=== PATIENT | male | born 1955 | race Caucasian/White ===

== ENCOUNTER 2017-03-20 10:26 | Emergency (ER) | payer OTHER ==
[~2017-03-20] VITALS: Ht 170.2 cm; Wt 84.5 kg
[2017-03-20 10:26] VITALS: BP 141/78
[2017-03-20] MEDS ORDERED: PIOG45TA4 PO (10:51)
[2017-03-20] MEDS ORDERED: NORC1TAB4 PO (10:51)
[2017-03-20] MEDS ORDERED: HYDR12.55 PO (10:51)
[2017-03-20] MEDS ORDERED: SIMV40TA2 PO (10:51)
[2017-03-20] MEDS ORDERED: GABA-283 PO (10:51)
[2017-03-20] MEDS ORDERED: INSUH10VL SC (10:51)
[2017-03-20] MEDS ORDERED: STOO100C PO (10:51)
[2017-03-20] MEDS ORDERED: LOSA100T36 PO (10:51)
[2017-03-20] MEDS ORDERED: INSULANT SC (10:51)
[2017-03-20] MEDS ORDERED: METF10004 PO (10:51)
[2017-03-20] MEDS ORDERED: ASPI81TA24 PO (10:51)
[2017-03-20] MEDS ORDERED: OMEP40CA2 PO (10:51)
[2017-03-20] MEDS ORDERED: TRAM50TA2 PO (10:51)
[2017-03-20] MEDS ORDERED: VICT18IN SC (10:51)
[2017-03-20] MEDS ORDERED: ATEN50TA2 PO (10:51)
--- NOTE | 2017-03-20 11:33 | REP ---
Right hip two views : There is no fracture or dislocation. Mineralization and joint spaces are normal. There are no calcifications or foreign bodies. Impression: Negative right hip . Signed by Wiley Grijalva MD 03/20/2017 11:24 A
[2017-03-20] MEDS ORDERED: MOBI4TAB PO (13:16)
== END 2017-03-20 13:37 | disposition home or self-care (01) ==
LOC: M ED 10:26
DX: M76.892 Other specified enthesopathies of left lower limb, excluding foot (principal); M70.72 Other bursitis of hip, left hip; Z87.891 Personal history of nicotine dependence; X58.XXXA Exposure to other specified factors, initial encounter; Y92.89 Other specified places as the place of occurrence of the external cause; Y93.89 Activity, other specified; Y99.9 Unspecified external cause status

== ENCOUNTER 2018-06-19 20:52 | Emergency (ER) | payer OTHER ==
[~2018-06-19 20:52] MED LIST: ASPI81TA24 PO; ATEN50TA2 PO; GABA-845 PO; HYDR12.55 PO; INSUH10VL SC; INSULANT SC; LOSA100T50 PO; METF10004 PO; MOBI4TAB PO; NORC1TAB4 PO; OMEP40CA2 PO; PIOG1TAB55 PO; SIMV40TA2 PO; STOO100C PO; TRAM50TA2 PO; VICT18IN SC
[2018-06-19 21:33] LABS: BASO # 0.1 10^3/uL (0.0-0.2); BASO % 0.5 % (0.0-1.0); EOS # 0.3 10^3/uL (0.0-0.50); EOS % 2.5 % (0.0-3.0); HEMATOCRIT 38.6 % (42.0-52.0); HEMOGLOBIN 13.2 g/dl (13.5-17.5); LYMPH # 2.7 10^3/uL (1.5-4.5); MEAN CORPUSCULAR HGB CONC 34.2 g/dl (32.0-36.5); MEAN CORPUSCULAR VOLUME 90.6 fl (80.0-96.0); MONO % 7.5 % (0.0-5.0); NEUTROPHILS # 8.9 10^3/uL (1.8-7.7); NEUTROPHILS % 68.2 % (36.0-66.0); PLATELET COUNT, AUTOMATED 365 10^3/uL (150-450); RED BLOOD COUNT 4.26 10^6/uL (4.30-6.10)
[2018-06-19] MEDS ORDERED: MORPHINE 4 MG/ML 1ML VIAL/SYRINGE (J2270) As Ordered ONE (21:38)
[2018-06-19 21:41] LABS: APPEARANCE, URINE CLEAR (CLEAR); BACTERIA, URINE AUTO NEGATIVE (NEGATIVE); BILIRUBIN, URINE AUTO NEGATIVE (NEGATIVE); BLOOD, URINE BLOOD NEGATIVE (NEGATIVE); COLOR, URINE YELLOW (YELLOW); GLUCOSE, URINE (UA) AUTO NEGATIVE (NEGATIVE); KETONE, URINE AUTO NEGATIVE (NEGATIVE); LEUKOCYTE ESTERASE, URINE AUTO NEGATIVE (NEGATIVE); NITRITE, URINE AUTO NEGATIVE (NEGATIVE); PROTEIN, URINE AUTO NEGATIVE (NEGATIVE); RBC, URINE AUTO 2 /HPF (0-3); SPECIFIC GRAVITY URINE AUTO 1.018 (1.002-1.035); SQUAMOUS EPITHELIAL CELL UR AU 0 /HPF (0-6); UROBILINOGEN, URINE AUTO 0.2 mg/dL (0.0-2.0); WBC, URINE AUTO 0 /HPF (0-3)
[2018-06-19] MEDS ORDERED: NS 1,000 ML IV ONE (21:45)
[2018-06-19] MEDS ORDERED: MORPHINE 4 MG/ML 1ML VIAL/SYRINGE (J2270) IV ONE (21:45)
[2018-06-19 21:53] LABS: ALBUMIN 4.1 GM/DL (3.2-5.2); ALT/SGPT 23 U/L (12-78); BILIRUBIN,DIRECT 0.1 MG/DL (0.0-0.2); BILIRUBIN,TOTAL 0.2 MG/DL (0.2-1.0); BLOOD UREA NITROGEN 24 MG/DL (7-18); CALCIUM LEVEL 8.7 MG/DL (8.8-10.2); CARBON DIOXIDE LEVEL 27 MEQ/L (21-32); CHLORIDE LEVEL 100 MEQ/L (98-107); CREATININE FOR GFR 1.21 MG/DL (0.70-1.30); GLOMERULAR FILTRATION RATE > 60.0 (>49); GLUCOSE, FASTING 147 MG/DL (70-100); LIPASE 162 U/L (73-393); POTASSIUM SERUM 4.2 MEQ/L (3.5-5.1); SODIUM LEVEL 135 MEQ/L (136-145); TOTAL PROTEIN 7.6 GM/DL (6.4-8.2)
[2018-06-19] MEDS ORDERED: KETOROLAC 30 MG/ML VIAL (J1885) IV ONE (23:00)
--- NOTE | 2018-06-19 23:28 | REPVR ---
EXAM: CT Abdomen and Pelvis Without Contrast EXAM DATE/TIME: 06/19/2018 10:44 PM CLINICAL HISTORY: 63 years old, male; Pain; Abdominal pain; Localized; Left; Additional info: L colic TECHNIQUE: Axial computed tomography images of the abdomen and pelvis without contrast. All CT scans at this facility use at least one of these dose optimization techniques: automated exposure control; mA and/or kV adjustment per patient size (includes targeted exams where dose is matched to clinical indication); or iterative reconstruction. Coronal and sagittal reformatted images were created and reviewed. COMPARISON: CR Hip, Ap,Lat 03/20/2017 11:18 AM FINDINGS: ABDOMEN: Mild left basilar atelectasis. Liver: Normal appearing liver. Gallbladder and bile ducts: Normal gallbladder. Pancreas: Normal sized pancreas. Spleen: Spleen is small. Adrenals: Mild adrenal hypertrophy. Kidneys and ureters: No hydronephrosis. Stomach and bowel: There is thickening of a 10 CM length of proximal and mid sigmoid colon. This is suspicious for changes of colitis. There are numerous diverticula throughout the colon. There is one diverticula contiguous with the thickened portion suspicious for diverticulitis. The cecum is in the right pelvis. The appendix is thought to be normal. Normal appearing small bowel. PELVIS: Bladder: Normal appearing urinary bladder. Reproductive: Small calcifications in the prostate. ABDOMEN and PELVIS: Intraperitoneal space: There is no evidence of pneumoperitoneum. There is no evidence of free fluid in the abdomen or the pelvis. Bones/joints: There is severe narrowing of the L5-S1 disc space. There is a grade 2 spondylolisthesis of L5 on S1 and bilateral spondylolysis of pars interarticularis. This produces severe bilateral L5 neural foramina narrowing. Prominent posterior osteophyte formation is noted in the lower lumbar spine. Soft tissues: Unremarkable. Vasculature: There is calcification of the aorta consistent with atherosclerotic changes. Lymph nodes: Normal. No enlarged lymph nodes. IMPRESSION: 1. Numerous diverticula throughout the colon. 2. Thickening of the bowel wall of a 10 CM length of proximal and mid sigmoid colon could be the result of colitis. Subtle stranding density identified. One enhancing diverticula. 3. Grade 2 spondylolisthesis L5 on S1 and severe neural foramina narrowing. Electronically signed by: Sin South On 06/19/2018 23:27:52 PM
[2018-06-20] MEDS ORDERED: metroNIDAZOLE 500 MG in APPROPRIATE DILUENT 1 EA IV ONE (00:15)
[2018-06-20] MEDS ORDERED: CIPROFLOXACIN 400 MG in APPROPRIATE DILUENT 1 EA IV ONE (00:15)
[2018-06-20] MEDS ORDERED: FLAG500T PO (02:42)
[2018-06-20] MEDS ORDERED: CIPR-249 PO (02:42)
[2018-06-20 03:32] VITALS: BP 125/85
--- NOTE | 2018-06-20 12:59 | ED PDOC ---
Post-Departure Follow-Up ct abd/p for fu faxed t Lila Aldana MD Jun 20, 2018 12:59
== END 2018-06-20 03:36 | disposition home or self-care (01) ==
LOC: M ED 20:52
DX: K52.9 Noninfective gastroenteritis and colitis, unspecified (principal); I10 Essential (primary) hypertension; G89.29 Other chronic pain; M54.9 Dorsalgia, unspecified; Z87.442 Personal history of urinary calculi; Z79.899 Other long term (current) drug therapy; Z79.82 Long term (current) use of aspirin; Z88.8 Allergy status to other drugs, medicaments and biological substances
CPT/HCPCS: 74176; 80048; 80076; 81001; 83690; 85025; 96365; 96375; 99284; J0744; J1885; J2270

== ENCOUNTER 2019-10-28 03:23 | Inpatient (IN) | payer OTHER ==
[~2019-10-28] VITALS: Ht 167.6 cm; Wt 72.0 kg
[2019-10-28] VITALS (28 sets, daily range): BP systolic 89–118; BP diastolic 54–81
[~2019-10-28 03:23] MED LIST changes: +CIPR-249 PO; +FLAG500T PO; +MM S100C PO; -NORC1TAB4 PO; +NORC1TAB7 PO; -OMEP40CA2 PO; +OMEP40CA97 PO; -SIMV40TA2 PO; +SIMV40TA20 PO; -STOO100C PO
[2019-10-28] MEDS ORDERED: LIDOCAINE 2% 5ML JELLY UROJET TOP ONE (04:00)
[2019-10-28] MEDS ORDERED: PIPERACILLIN/TAZOBACTAM SOD 3.375 GM in D5W MINI-BAG PLUS 50 ML IV ONE (04:00)
[2019-10-28] MEDS ORDERED: NS 1,000 ML IV ONE ×3 (04:00→05:45)
[2019-10-28 04:07] LABS: HEMATOCRIT 35.6 % (42.0-52.0); HEMOGLOBIN 12.1 g/dl (13.5-17.5); MEAN CORPUSCULAR HEMOGLOBIN 30.1 pg (27.0-33.0); MEAN CORPUSCULAR VOLUME 88.6 fl (80.0-96.0); PLATELET COUNT, AUTOMATED 237 10^3/uL (150-450); RED BLOOD COUNT 4.02 10^6/uL (4.30-6.10); WHITE BLOOD COUNT 14.4 10^3/uL (4.0-10.0)
[2019-10-28] MEDS ORDERED: OMEP1CAP73 PO (04:17)
[2019-10-28] MEDS ORDERED: DICL1GEL3 TOP (04:17)
[2019-10-28] MEDS ORDERED: ROSU40TA4 PO (04:17)
[2019-10-28] MEDS ORDERED: TRUL0.5I SC (04:17)
[2019-10-28] MEDS ORDERED: HYDR25TAB PO (04:17)
[2019-10-28] MEDS ORDERED: MELO15TA28 PO (04:17)
[2019-10-28] MEDS ORDERED: LOSA50TA88 PO (04:17)
[2019-10-28] MEDS ORDERED: LIDO5OIN19 TOP (04:17)
[2019-10-28] MEDS ORDERED: PATIENT COMMENTS (04:20)
[2019-10-28] MEDS ORDERED: MULTCAP PO (04:20)
[2019-10-28 04:22] LABS: LYMPHOCYTES 3 % (16-44); METAMYELOCYTES 6 % (0-0); MONOCYTES 2 % (0-5); NEUTROPHILS 82 % (28-66)
[2019-10-28] MEDS ORDERED: KETO0.02 OU (04:22)
[2019-10-28 04:23] LABS: PLATELET CLUMPS SMALL AMT
[2019-10-28 04:26] LABS: TOXIC VACUOLATION 2+
[2019-10-28 04:27] LABS: PLATELET ESTIMATE NORMAL (NORMAL)
[2019-10-28 04:36] LABS: APPEARANCE, URINE HAZY (CLEAR); BACTERIA, URINE AUTO NEGATIVE (NEGATIVE); BILIRUBIN, URINE AUTO NEGATIVE (NEGATIVE); BLOOD, URINE BLOOD 2+ (NEGATIVE); COLOR, URINE YELLOW (YELLOW); GLUCOSE, URINE (UA) AUTO 3+ mg/dL (NEGATIVE); KETONE, URINE AUTO TRACE mg/dL (NEGATIVE); LEUKOCYTE ESTERASE, URINE AUTO NEGATIVE (NEGATIVE); NITRITE, URINE AUTO NEGATIVE (NEGATIVE); PROTEIN, URINE AUTO NEGATIVE (NEGATIVE); RBC, URINE AUTO 9 /HPF (0-3); SPECIFIC GRAVITY URINE AUTO 1.026 (1.002-1.035); SQUAMOUS EPITHELIAL CELL UR AU 0 /HPF (0-6); UROBILINOGEN, URINE AUTO 0.2 mg/dL (0.0-2.0); WBC, URINE AUTO 0 /HPF (0-3)
[2019-10-28 04:44] LABS: ALBUMIN 2.3 GM/DL (3.2-5.2); BILIRUBIN,DIRECT 0.2 MG/DL (0.0-0.2); BILIRUBIN,TOTAL 0.3 MG/DL (0.2-1.0); CALCIUM LEVEL 8.2 MG/DL (8.8-10.2); CREATININE FOR GFR 1.43 MG/DL (0.70-1.30); FREE THYROXINE INDEX 2.6 % (1.4-3.8); GLOMERULAR FILTRATION RATE 53.3 (>49); POTASSIUM SERUM 3.7 MEQ/L (3.5-5.1); THYROID STIMULATING HORMONE 1.81 uIU/ML (0.358-3.740); THYROXINE (T4) 8.1 UG/DL (4.5-12.0); TOTAL PROTEIN 5.8 GM/DL (6.4-8.2)
[2019-10-28] MEDS ORDERED: ISOVUE-370 76% 100ML VIAL As Ordered ONE (05:29)
--- NOTE | 2019-10-28 05:30 | REP ---
Clinical: Fever. Comparison: None. Findings: Examination is limited by portable technique, underpenetration and positioning. Right infrahilar atelectasis/early infiltrate cannot be excluded. No obvious effusion. No pneumothorax. Skeletal structures intact. Impression: Cannot exclude infrahilar atelectasis/early infiltrate. Electronically Signed by Javier Chavez MD 10/28/2019 05:21 A
[2019-10-28] MEDS ORDERED: GLUCAGON INJ 1MG VIAL SC PRN (05:45)
[2019-10-28] MEDS ORDERED: GLUCOSE 4GM CHEW TABLET PO PRN (05:45)
[2019-10-28] MEDS ORDERED: HumaLOG INSULIN (NovoLOG) PER UNIT SC SCH (05:45)
[2019-10-28] MEDS ORDERED: MAALOX 30 ML SUSP *UDC PO PRN (05:45)
[2019-10-28] MEDS: HumaLOG INSULIN (NovoLOG) PER UNIT SC SCH ×3 (06:00→18:50)
--- NOTE | 2019-10-28 06:05 | HPEPDOC ---
General Date of Admission Oct 28, 2019 at 05:37 Date of Service: Oct 28, 2019 Chief Complaint The patient is a 64-year-old male admitted with a reason for visit of Taye, Sepsis. Source: Patient, RN/MD, EMS notes reviewed Exam Limitations: Other (somewhat obtunded, not a good historian) Timing/Duration: Other (. This morning) Severity: Other (, not applicable) Associated Symptoms: Other (. Fluctuating blood sugar) History of Present Illness This is a 64 years old white male with possible possible medical history of hypertension, peripheral neuropathy, diabetes mellitus, osteoarthritis, GERD, hyperlipidemia, was found unconscious in the bathroom, as per his family. EMS was called by the time EMS arrived. Patient was awake, alert but confused. Patient is not a good historian. When asked about the events, He does not remember anything, no old records available at this hospital. Patient follows up with [facility]. Patient also was found to be febrile and hypotensive in the emergency room and hence we'll called in to admission for sepsis. Patient is awake but confused, not oriented to place, person and time. Not sure whether that's his baseline mental status. Home Medications Scheduled Aspirin (Aspirin EC) 81 Mg Tab, 81 MG PO DAILY, (Reported) Atenolol (Atenolol) 50 Mg Tab, 50 MG PO DAILY, (Reported) Docusate Sodium (Stool Softener) 100 Mg Cap, 100 MG PO BID, (Reported) Dulaglutide (Trulicity) 1.5 Mg/0.5 Ml Pen.injctr, 1.5 MG SC Q7D, (Reported) Gabapentin (Gabapentin) 400 Mg Cap, 400 MG PO QID, (Reported) Hydrochlorothiazide (Hydrochlorothiazide) 25 Mg Tablet, 25 MG PO DAILY, (Reported) Insulin Glargine (Lantus) 1 Units/0.01 Ml Susp, 80 UNITS SC QPM, (Reported) Insulin Human Lispro (Novolog) 100 U/Ml Inj, 10 UNITS SC AC, (Reported) Losartan Potassium (Losartan Potassium) 50 Mg Tablet, 50 MG PO DAILY, (Reported) Meloxicam (Meloxicam) 15 Mg Tablet, 15 MG PO DAILY, (Reported) Metformin HCl (Metformin HCl) 1,000 Mg Tab, 1,000 MG PO BID, (Reported) Multivitamin (Multivitamins) 1 Each Capsule, 1 CAP PO BID, (Reported) Omeprazole (Omeprazole) 20 Mg Capsule.dr, 20 MG PO BID, (Reported) Pioglitazone HCl (Pioglitazone HCl) 45 Mg Tab, 45 MG PO DAILY, (Reported) Rosuvastatin Calcium (Rosuvastatin Calcium) 40 Mg Tablet, 40 MG PO DAILY, (Reported) Scheduled PRN Diclofenac Sodium (Diclofenac Sodium) 1% 100GM Gel..gram., 4 GM TOP BID PRN for PAIN, (Reported) Apply to area of pain Ketotifen Fumarate (Ketotifen Fumarate) 5 Ml Drops, 1 DROP OU BID PRN for ALLERGY, (Reported) Lidocaine (Lidocaine) 120 Gm Oint...g., 1 DOSE TOP BID PRN for PAIN, (Reported) Tramadol HCl (Tramadol HCl) 50 Mg Tab, 50 MG PO TIDP PRN for PAIN OR FEVER, (Reported) Miscellaneous Medications [Patient Comments] , (Reported) PATIENT VERY DROWSY, UNABLE TO ANSWER QUESTIONS REGARDING MEDICATIONS. MEDICATION LIST IS FOR CURRENT RX'S AT HIS PHARMACY Allergies Coded Allergies: duloxetine (Verified Allergy, Mild, NIGHTMARES, 10/28/19) lisinopril (Verified Adverse Reaction, Mild, CHEST PAIN, 10/28/19) Past Medical History Medical History Diabetes mellitus. There for neuropathy, GERD, hypertension, osteoarthritis Surgical History Right knee replacement Family History Unable to obtained. Family history. Secondary to confusion Social History * Smoker: other (unable to obtained history of smoking) Alcohol: other (unable to obtain history of alcohol) Drugs: other (unable to obtained. Drug history) A-FIB/CHADSVASC A-FIB History Current/History of A-Fib/PAF?: No Review of Systems Constitutional: Reports: Other (. Patient awake, alert but confused. Poor historian, unable to obtained review of systems secondary to his medical and medical status) Physical Examination General Exam: Positive: Alert, Other (, oriented 0) Eye Exam: Positive: PERRLA, Conjunctiva & lids normal ENT Exam: Positive: Atraumatic, Mucous membr. moist/pink Neck Exam: Positive: Supple Chest Exam: Positive: Clear to auscultation, Normal air movement Heart Exam: Positive: Rate Normal, Normal S1, Normal S2 Abdomen Exam: Positive: Other (, soft. Positive tenderness on palpation at right upper quadrant until the costovertebral margin, bowel sounds are present) Extremity Exam: Positive: Normal pulses Skin Exam: Positive: Nl turgor and temperature Neuro Exam: Positive: Strength at 5/5 X4 ext, Sensation Intact, Cranial Nerves 3-12 NL Psych Exam: Positive: Other (. Confused) Vital Signs Vital Signs Date Time Temp Pulse Resp B/P (MAP) Pulse Ox O2 Delivery O2 Flow Rate FiO2 10/28/19 05:20 85/55 (65) 10/28/19 05:08 87 18 98 Room Air 10/28/19 03:30 101.1 Laboratory Data Labs 24H Laboratory Tests 2 10/28/19 03:55: Neutrophils (%) (Auto) , Nucleated Red Blood Cells % (auto) 0.0, Neutrophils 82H, Band Neutrophils 7, Lymphocytes (Manual) 3L, Monocytes (Manual) 2, Metamyelocytes 6H, Toxic Vacuolation 2+, Platelet Estimate NORMAL, Clumped Platelets SMALL AMT, Urine Color YELLOW, Urine Appearance HAZY, Urine pH 5.0, Urine Specific [place] 1.026, Urine Protein NEGATIVE, Urine Glucose (Auto)(UA) 3+H, Urine Ketones (Auto) TRACEH, Urine Blood 2+H, Urine Nitrite NEGATIVE, Urine Bilirubin NEGATIVE, Urine Urobilinogen 0.2, Urine Leukocyte Esterase (Auto) NEGATIVE, Urine WBC (Auto) 0, Urine RBC (Auto) 9H, Urine Hyaline Casts (Auto) 0, Urine Bacteria (Auto) NEGATIVE, Urine Squamous Epithelial Cells 0, Urine Sperm (Auto) , Anion Gap 14, Glomerular Filtration Rate 53.3, Lactic Acid Level 2.2*H, Calcium Level 8.2L, Total Bilirubin 0.3, Direct Bilirubin 0.2, Aspartate Amino Transf (AST/SGOT) 142H, Alanine Aminotransferase (ALT/SGPT) 108H, Alkaline Phosp hatase 229H, Total Protein 5.8L, Albumin 2.3L, Albumin/Globulin Ratio 0.7, Thyroid Stimulating Hormone (TSH) 1.810, Free Thyroxine Index 2.6, Thyroxine (T4) 8.1, Triiodothyronine (T3) Uptake 32L 10/28/19 04:00: Bedside Glucose (Misc Panel) 352H CBC/BMP Laboratory Tests 10/28/19 03:55 Microbiology Microbiology 10/28/19 Respiratory Virus Panel (PCR) (NUSRAT) - Final, Complete 10/28/19 Urine Culture, Received Pending 10/28/19 Blood Culture, Received Pending Problems (1) Sepsis Status: Acute Problem Text: 64 years old white male with a poor historian was brought in as he was found in bathroom unconscious. As per family, but by the time EMS got there, he was awake, alert, but is a poor historian, unable to obtained history. Patient was found to be febrile with 101.1, heart rate 91, respiratory rate of 26, blood pressure 84/53, 96% pulse ox Chest x-ray shows a possible infrahilar atelectasis/infiltrate WBC count 14.4, hemoglobin 12.1, hematocrit is 34.6, platelets 237 Electrolytes are normal with BUN 61, creatinine 1.43, AST is 142, ALT is 108, and ALP is 229. Urine is negative and lactic acid 2.2 On abdominal examination consistent with positive Scott's sign. CAT scan of the abdomen and pelvis was ordered from the emergency room but is still pending Spoke with Dr. Callahan, for surgical consult as patient most likely has acute cholecystitis, surgery will see patient this morning for further recommendations. Admit patient to ICU with diagnosis of sepsis with shock, metabolic encephalopathy secondary to sepsis, possible infrahilar infiltrate and acute kidney injury secondary to infection and dehydration IV fluids: Patient received 2.5 L of normal saline in the emergency room Will also start him on normal saline 150 mL per hour. If is blood pressure does not improve with IV fluids alone, then he might need help of vasopressors Patient also received a 1 dose of Zosyn, I will continue Zosyn and add vancomycin as an per therapy for sepsis with shock Will keep patient nothing by mouth in the meantime except meds Hold all his home meds Protonix 40 mg IV daily Activity bed rest DVT prophylaxis with bilateral SCDs Note: Further management depends on the result of CT abdomen, pelvis and surgical recommendations (2) TAYE (acute kidney injury) Status: Acute Problem Text: Most likely secondary to infection and dehydration even though I don't have his baseline renal function is available to me IV fluids: Patient received 2-1/2 L of normal saline in ED and will continue normal saline 150 mL per hour Monitor patient's renal function Strict I and O Vital signs as per orders (3) Diabetes mellitus Status: Chronic Problem Text: Fingerstick blood sugar every 6 hours with coverage Hold all home by mouth meds Agent is currently nothing by mouth (4) HTN (hypertension) Status: Chronic Problem Text: Patient is hypotensive at present time secondary to sepsis with shock Fluid resuscitation has been started Hold all by mouth antihypertensive meds (5) Metabolic encephalopathy Status: Acute Problem Text: Most likely secondary to infection, which probably is acute cholecystitis and or infrahilar pneumonia I do not have further information about his baseline mental status, but he seems confused, unable to give me a good history Will try to reach his family and try to get more information . We'll continue monitoring his mental status clinically Plan / VTE VTE Prophylaxis Ordered?: Yes DG GARCIA MD Oct 28, 2019 06:05
--- NOTE | 2019-10-28 06:15 | REPVR ---
PROCEDURE INFORMATION: Exam: CT Abdomen And Pelvis With Contrast Exam date and time: 10/28/2019 5:56 AM Age: 64 years old Clinical indication: Abdominal pain; Additional info: Fever/abd pain TECHNIQUE: Imaging protocol: Computed tomography of the abdomen and pelvis with intravenous contrast. Radiation optimization: All CT scans at this facility use at least one of these dose optimization techniques: automated exposure control; mA and/or kV adjustment per patient size (includes targeted exams where dose is matched to clinical indication); or iterative reconstruction. Contrast material: ISO 370; Contrast volume: 100 ml; Contrast route: IV; COMPARISON: CT ABD PELVIS W/O CONTRAST 06/19/2018 10:28 PM FINDINGS: Lungs: Diffuse interlobular septal thickening. Diaphragm: Elevated left hemidiaphragm. Liver: Multiloculated irregular hypodense lesion in the right hepatic lobe measuring approximately 5.6 x 6.3 x 7 cm in total diameter. No capsule evident. Gallbladder and bile ducts: Normal. No calcified stones. No ductal dilation. Pancreas: Normal. No ductal dilation. Spleen: Normal. No splenomegaly. Adrenals: Mild nodularity of the right adrenal gland. Thickened left adrenal gland. Kidneys and ureters: No hydronephrosis. Cyst in the upper pole of left kidney measures 11 mm. Nonspecific perinephric stranding bilaterally. Stomach and bowel: Colonic diverticulosis without diverticulitis. Copious stool in the colon. No abnormal bowel dilatation. No abnormal bowel wall thickening. Appendix: Appendix is normal. Intraperitoneal space: Unremarkable. No free air. No significant fluid collection. Vasculature: Moderate atherosclerotic disease. No aortic aneurysm. Lymph nodes: Unremarkable. No enlarged lymph nodes. Bladder: There is a Momin catheter in the bladder. Gas in the bladder consistent with catheterization. No bladder wall thickening. Reproductive: Prostate is normal in size. Bones/joints: Severe degenerative spine. No acute fracture. Bilateral L5 spondylolysis. 8 mm anterolisthesis of L5-S1. Soft tissues: Small bilateral inguinal hernias containing fat. No evidence of incarceration. IMPRESSION: 1. Multiloculated irregular hypodense lesion in the right hepatic lobe. Suspicious for abscess with history of fever. Differential diagnosis also includes malignancy. 2. Thickened left adrenal gland. Mildly increased from prior. If patient has no cancer history, consider follow-up adrenal CT or resection. If patient has a history of cancer, consider biopsy or PET/CT for patients with cancer history. (Celestino Dunlap, ACR White Paper, 2017) 3. Mild nodularity of the right adrenal gland. No change from prior. 4. Diffuse interlobular septal thickening. Suspect mild pulmonary edema. 5. Benign-appearing cyst in the upper pole of left kidney. No follow-up is necessary. 6. Additional findings as described. Electronically signed by: Duncan Solo On 10/28/2019 06:15:06 AM
--- NOTE | 2019-10-28 06:20 | PHACANCOPD ---
PHARMACY VANCOMYCIN DOSING Pt Demographics Demographics Patient Age:64 , Weight:73.600 , Gender: male Adjusted Body Weight Date: 10/28/19, Adjusted Body Weight: Kg Events Past 24 Hours Events Past 24 Hours: NO: Dialysis, Diuretic Therapy, Change in CrCl, Fever, Elevation in WBC, Pending Diagnostics, Pending Procedures, Other Vancomycin Vancomycin indication: SEPSIS Vancomycin Target Ranges: 15-20 mcg/ml Vancomycin Load Y/N: Yes Load Dose Date Time Vancomycin Load Dose: 1.5G Date:10/28/19 Time:06:00 Vancomycin Dose Date: 10/28/19. Current Vancomycin Dose: [1G IV Q24H] Intermittent Dosing?: No Labs Labs Item Value Date Time White Blood Count 14.4 10^3/uL H 10/28/19 0355 Creatinine 1.43 MG/DL H 10/28/19 0355 Micro Microbiology 10/28/19 Blood Culture, Received Pending 10/28/19 Respiratory Virus Panel (PCR) (NUSRAT) - Final, Complete 10/28/19 Urine Culture, Received Pending 10/28/19 Blood Culture, Received Pending Creatinine Clearance Date:10/28/19. Creatinine Clearance: [48ML/MIN]. Pending Labs MRSA PCR Assessment and Plan Maintaining Current Dose?: Yes Reason for dose change: No Dose Change Pharmacist Note Pharmacist Note Date: 10/28/19. Pharmacist note:PT is a 64 year old male being treated for sepsis goal trough 15-20mcg/ml. There is no history of vancomycin therapy here at [facility]. Current JEFFREY and Scr 1.43mg/dl. Pt will receive 1.5g vancomycin IV loading dose. Maintenance currently will consist of 1g iv q24h. We will monitor serum creatinine for improvement and adjust as needed. [facility] Oct 28, 2019 06:20
[2019-10-28] MEDS ORDERED: NOREPINEPHRINE BITARTRATE 8 MG in D5W 492 ML IV SCH ×2 (06:30→08:45)
[2019-10-28] MEDS: VANCOMYCIN HCL 1,000 MG, VIAL MATE ADAPTER 1 EACH in D5W 250 ML IV SCH (06:38)
[2019-10-28] MEDS: NS 1,000 ML IV SCH ×3 (06:58→21:42)
[2019-10-28] MEDS ORDERED: VANCOMYCIN HCL 500 MG in D5W MINI-BAG PLUS 100 ML IV ONE (07:00)
[2019-10-28 10:12] LABS: INR 1.28; PROTHROMBIN TIME 15.7 SECONDS (11.8-14.0)
[2019-10-28] MEDS: PIPERACILLIN/TAZOBACTAM SOD 3.375 GM in D5W MINI-BAG PLUS 50 ML IV SCH ×3 (10:51→21:42)
[2019-10-28] MEDS: PANTOPRAZOLE 40MG VIAL (C9113 PER 1) IV SCH (10:52)
[2019-10-28] MEDS ORDERED: LEVEMIR (INSULIN DETEMIR) 1 UNITS/0.01ML SC ONE (12:15)
--- NOTE | 2019-10-28 14:21 | CR.PDOC ---
General Surgery Consultation Date of Consultation 10/28/19 History and Physical CONSULT REPORT FOR: Hospitalist service REASON FOR CONSULTATION: ?sepsis, abnormal LFTs, initially suspecting possible cholecystitis HISTORY OF PRESENT ILLNESS: I was asked to evaluate Mr. Broderick initially for possibility of acute cholecystitis but on further workup was seen to have a mass in the liver which may correspond to a liver abscess. PAST MEDICAL HISTORY: 1. . PAST SURGICAL HISTORY: INCLUDES: 1. . PREVIOUS ANESTHESIA REACTIONS: ALLERGIES: Please see below. FAMILY HISTORY: . HOME MEDICATIONS: Please see below. REVIEW OF SYSTEMS: GENERAL: [Denies chills, reports weight gain, reports feeling febrile yesterday]. HEENT: [Denies blurred vision and double vision. Denies ear symptoms. Denies hoarseness]. NECK: Denies any neck pain]. CARDIOVASCULAR: [Denies chest pain and palpitations]. MUSCULOSKELETAL: [Denies arthralgias, back pain and thrombophlebitis]. SKIN: [Denies rash]. NEUROLOGIC: [Denies headache, stroke and transient ischemic attack]. PSYCHIATRIC: [Denies anxiety and depression]. ENDOCRINE: [Denies thyroid disease]. HEMATOLOGY/ONCOLOGY: [Denies bleeding or clotting disorder]. HEART: [Denies any chest pains, palpitations, paroxysmal dyspnea, orthopnea]. PULMONARY: [Denies chronic cough, dyspnea and wheezing]. GASTROINTESTINAL: [Denies rectal bleeding, family history of colon cancer, constipation, diarrhea, dysphagia, heartburn and jaundice]. GENITOURINARY: [Denies dysuria, frequency, hematuria and nocturia]. ENDOCRINE: [Denies polydipsia, polyphagia, polyuria, heat or cold intolerance]. INFECTIOUS: [Denies any recent upper respiratory tract infection, UTI, need for use of antibiotics]. NUTRITION: [Reports good appetite]. PHYSICAL EXAMINATION: VITALS SIGNS: Please see below. GENERAL APPEARANCE:[Patient seen, laying in bed, awake, alert, and oriented. Comfortable, in no acute distress]. SKIN: [Warm and moist]. HEENT: [Normocephalic, atraumatic. [place] palpebral conjunctiva, anicteric sclerae. Lips and mucosa appear moist]. NECK: [Supple, no thyromegaly. No obvious jugular venous distention]. LUNGS: [Clear to auscultation bilaterally. No wheezing appreciated]. HEART: [No chest wall abnormalities. Regular rate and rhythm with no murmurs appreciated]. ABDOMEN: Abdomen is , soft, . [No hepatosplenomegaly. No umbilical or groin herniations, nondistended. No noticeable rebound or guarding. No grimacing with palpation. No rebound tenderness. No masses appreciated]. EXTREMITIES: [Extremities have no deformities. No edema identified] ANCILLARIES: . LABORATORY DATA: Please see below. IMAGING STUDIES: . CT scan abdomen and pelvis 1. Multiloculated irregular hypodense lesion in the right hepatic lobe. Suspicious for abscess with history of fever. Differential diagnosis also includes malignancy. 2. Thickened left adrenal gland. Mildly increased from prior. If patient has no cancer history, consider follow-up adrenal CT or resection. If patient has a history of cancer, consider biopsy or PET/CT for patients with cancer history. (Celestino Dunlap, ACR White Paper, 2017) 3. Mild nodularity of the right adrenal gland. No change from prior. 4. Diffuse interlobular septal thickening. Suspect mild pulmonary edema. 5. Benign-appearing cyst in the upper pole of left kidney. No follow-up is necessary. 6. Additional findings as described. IMPRESSION AND PLAN: liver mass syncopal episode abnormal LFTs Initially he was being suspected to have possible acute cholecystitis but on further workup presenting with syncopal episode and noted to be hypotensive in the emergency room with leukocytosis, abnormal LFTs including mildly abnormal AST, ALT, ALKP, but normal bilirubin. On further workup, CT shows a right lobe liver hypodensity mass which maybe an abscess. He does not give any prior recent intraabdominal infection that may have seeded the liver. Prior to the syncopal episode, he wa feeling well. He did tell me that he had one other episode of lightheadedness, near syncopal episode last Monday but he caught himself. He does not particularly look ill, septic in appearance. So Im not so sure that this is infectious in nature. I have asked Dr. Nguyen to arrange for possible percutaneous drainage/biopsy of the mass under US guidance. I suspect possibly malignancy ?carcinoid with the fainting. will await the US study. Vital Signs Vital Signs Date Time Temp Pulse Resp B/P (MAP) Pulse Ox O2 Delivery O2 Flow Rate FiO2 10/28/19 13:00 79 91/59 (70) 10/28/19 12:00 98.1 17 95 Room Air I&Os I&O- Last 24 Hours up to 6 AM 10/28/19 06:00 Intake Total 1050 ml Balance 1050 ml Laboratory Data Labs 24H Laboratory Tests 2 10/28/19 03:55: Neutrophils (%) (Auto) , Nucleated Red Blood Cells % (auto) 0.0, Neutrophils 82H, Band Neutrophils 7, Lymphocytes (Manual) 3L, Monocytes (Manual) 2, Metamyelocytes 6H, Toxic Vacuolation 2+, Platelet Estimate NORMAL, Clumped Platelets SMALL AMT, Urine Color YELLOW, Urine Appearance HAZY, Urine pH 5.0, Urine Specific [place] 1.026, Urine Protein NEGATIVE, Urine Glucose (Auto)(UA) 3+H, Urine Ketones (Auto) TRACEH, Urine Blood 2+H, Urine Nitrite NEGATIVE, Urine Bilirubin NEGATIVE, Urine Urobilinogen 0.2, Urine Leukocyte Esterase (Auto) NEGATIVE, Urine WBC (Auto) 0, Urine RBC (Auto) 9H, Urine Hyaline Casts (Auto) 0, Urine Bacteria (Auto) NEGATIVE, Urine Squamous Epithelial Cells 0, Urine Sperm (Auto) , Anion Gap 14, Glomerular Filtration Rate 53.3, Lactic Acid Level 2.2*H, Calcium Level 8.2L, Total Bilirubin 0.3, Direct Bilirubin 0.2, Aspartate Amino Transf (AST/SGOT) 142H, Alanine Aminotransferase (ALT/SGPT) 108H, Alkaline Phosphatase 229H, Total Protein 5.8L, Albumin 2.3L, Albumin/Globulin Ratio 0.7, Thyroid Stimulating Hormone (TSH) 1.810, Free Thyroxine Index 2.6, Thyroxine (T4) 8.1, Triiodothyronine (T3) Uptake 32L 10/28/19 04:00: Bedside Glucose (Misc Panel) 352H 10/28/19 06:00: 10/28/19 08:09: Bedside Glucose (Misc Panel) 321H 10/28/19 08:21: Lactic Acid Followup at 4 Hours 0.9 10/28/19 09:41: Prothrombin Time 15.7H, Prothromb Time International Ratio 1.28, Activated Partial Thromboplast Time 29.0 10/28/19 09:53: Bedside Glucose (Misc Panel) 340H 10/28/19 10:01: Methicillin-Resist S.aureus DNA PCR NOT DETECTED 10/28/19 11:55: Bedside Glucose (Misc Panel) 329H CBC/BMP Laboratory Tests 10/28/19 03:55 Microbiology Microbiology 10/28/19 Blood Culture, Received Pending 10/28/19 Respiratory Virus Panel (PCR) (NUSRAT) - Final, Complete 10/28/19 Urine Culture, Received Pending 10/28/19 Blood Culture, Received Pending Home Medications Scheduled Aspirin (Aspirin EC) 81 Mg Tab, 81 MG PO DAILY, (Reported) Atenolol (Atenolol) 50 Mg Tab, 50 MG PO DAILY, (Reported) Docusate Sodium (Stool Softener) 100 Mg Cap, 100 MG PO BID, (Reported) Dulaglutide (Trulicity) 1.5 Mg/0.5 Ml Pen.injctr, 1.5 MG SC Q7D, (Reported) Gabapentin (Gabapentin) 400 Mg Cap, 400 MG PO QID, (Reported) Hydrochlorothiazide (Hydrochlorothiazide) 25 Mg Tablet, 25 MG PO DAILY, (Reported) Insulin Glargine (Lantus) 1 Units/0.01 Ml Susp, 80 UNITS SC QPM, (Reported) Insulin Human Lispro (Novolog) 100 U/Ml Inj, 10 UNITS SC AC, (Reported) Losartan Potassium (Losartan Potassium) 50 Mg Tablet, 50 MG PO DAILY, (Reported) Meloxicam (Meloxicam) 15 Mg Tablet, 15 MG PO DAILY, (Reported) Metformin HCl (Metformin HCl) 1,000 Mg Tab, 1,000 MG PO BID, (Reported) Multivitamin (Multivitamins) 1 Each Capsule, 1 CAP PO BID, (Reported) Omeprazole (Omeprazole) 20 Mg Capsule.dr, 20 MG PO BID, (Reported) Pioglitazone HCl (Pioglitazone HCl) 45 Mg Tab, 45 MG PO DAILY, (Reported) Rosuvastatin Calcium (Rosuvastatin Calcium) 40 Mg Tablet, 40 MG PO DAILY, (Reported) Scheduled PRN Diclofenac Sodium (Diclofenac Sodium) 1% 100GM Gel..gram., 4 GM TOP BID PRN for PAIN, (Reported) Apply to area of pain Ketotifen Fumarate (Ketotifen Fumarate) 5 Ml Drops, 1 DROP OU BID PRN for ALLERGY, (Reported) Lidocaine (Lidocaine) 120 Gm Oint...g., 1 DOSE TOP BID PRN for PAIN, (Reported) Tramadol HCl (Tramadol HCl) 50 Mg Tab, 50 MG PO TIDP PRN for PAIN OR FEVER, (Reported) Miscellaneous Medications [Patient Comments] , (Reported) PATIENT VERY DROWSY, UNABLE TO ANSWER QUESTIONS REGARDING MEDICATIONS. MEDICATION LIST IS FOR CURRENT RX'S AT HIS PHARMACY Allergies Coded Allergies: duloxetine (Verified Adverse Reaction, Mild, NIGHTMARES, 10/28/19) lisinopril (Verified Adverse Reaction, Mild, CHEST PAIN, 10/28/19) JOSELINE ULLOA MD Oct 28, 2019 14:16
[2019-10-28] MEDS ORDERED: LIDOCAINE 1% MDV 20ML VIAL As Ordered ONE (14:35)
--- NOTE | 2019-10-28 19:26 | IPNPDOC ---
Date Seen The patient was seen on 10/28/19. Progress Note SUBJECTIVE: Patient was admitted earlier today by overnight attending. The patient does not have appendicitis; however, the patient does have a questionable liver abscess versus mass which could potentially be the source of sepsis. Levophed drip was taken off upon arrival to the ICU. He remains on normal saline with MAP sustained above 65 mmHg. Discussed the case with IR and the patient will go for ultrasound guided biopsy of the mass with pathology and culture/Gram stain to be sent. At the time of evaluation the patient was awake alert and oriented 3 and had no acute complaints. OBJECTIVE: VITAL SIGNS: Please see below PHYSICAL EXAMINATION: CONSTITUTIONAL: No acute distress, resting comfortably, AAO x 3 EYES: PERRLA, EOM intact HENT, MOUTH: Normocephalic, atraumatic, moist mucous membranes NECK: SUPPLE, no JVD, no lymphadenopathy, no carotid bruit CV: Regular rate and rhythm, S1S2 normal, no murmurs/rubs/gallops RESPIRATORY: Clear to auscultation bilaterally, no rales/rhonchi/wheezes GI: BS positive in 4 quadrants, soft, nontender, nondistended, no rebound or guarding, no organomegaly : Deferred MUSCULOSKELETAL: Normal ROM. No cyanosis, clubbing, swelling, joint deformity, extremity edema INTEGUMENTARY: Intact, no rashes, no lesions, no erythema NEUROLOGIC: Cranial Nerves II-XII are intact, no focal deficits PSYCHIATRIC: Mood and affect are normal CURRENT MEDICATIONS: Please see below LABORATORY DATA: Please see below IMAGING: CT abd/pelvis: 1. Multiloculated irregular hypodense lesion in the right hepatic lobe. Suspicious for abscess with history of fever. Differential diagnosis also includes malignancy. 2. Thickened left adrenal gland. Mildly increased from prior. If patient has no cancer history, consider follow-up adrenal CT or resection. If patient has a history of cancer, consider biopsy or PET/CT for patients with cancer history. (Celestino Dunlap, ACR White Paper, 2017) 3. Mild nodularity of the right adrenal gland. No change from prior. 4. Diffuse interlobular septal thickening. Suspect mild pulmonary edema. 5. Benign-appearing cyst in the upper pole of left kidney. No follow-up is necessary. 6. Additional findings as described. CXR: Right infrahilar atelectasis/early infiltrate cannot be excluded. No obvious effusion. ASSESSMENT: 64 y/o M admitted for sepsis, Community acquired PNA, right liver abscess vs. mass, syncope, metabolic encephalopathy- resolved, dehydration. PLAN: 1. Community acquired PNA, sepsis. Septic shock resolved. CXR above. WBC 14.4, repeat LA wnl. C/w aggressive IVF hydration, Zosyn and Vancomycin from admission. One blood culture growing gram neg rods, f/u other BCx, sputum culture. Daily labs, tele. 2. Liver abscess vs. mass, sepsis. US guided drainage/bx today. C/w abx above. F/u results of cultures. Surgery consulted. 3. Gram neg crispin bacteremia. 1/2 sets of Blood cultures. Other set pending. R/o contaminant. On zosyn which should cover this well. F/u daily CBC and results of all cultures. 4. Syncope. 2/2 to sepsis vs. neuro vs. cardiac etiology. Echo and carotid US ordered. F/u results. Monitor on tele, neuro checks have been neg. No CT head done on admission. 5. Acute kidney injury likely preprenal in presence of dehydration and hypotension. Cr 1.43, no known CKD. C/w IVFs, f/u labs in AM. Avoid nephrotoxic medications. 6. DM type II. BS >300, started day levemir. C/w HS levemir, ISS, consistent carb diet, AC/HS blood sugar checks. 7. Septic shock- resolved. Hx of HTN. Holding antihypertensive meds currently, d/c levophed. Resume when appropriate. C/w IVFs. 8. Metabolic encephalopathy likely 2/2 to sepsis. Resolved. Currently AAOx3. Monitor closely. 9. DVT px. Heparin SC. DISPOSITION: Currently in ICU. Much improved since fluid resuscitated, AAOx3. Plan is discharge home when medically improved. VS, I&O, 24H, Fishbone Vital Signs/I&O Vital Signs Date Time Temp Pulse Resp B/P (MAP) Pulse Ox O2 Delivery O2 Flow Rate FiO2 10/28/19 17:00 98.1 85 16 109/73 (85) Room Air 10/28/19 16:00 100 I&O- Last 24 Hours up to 6 AM 10/28/19 06:00 Intake Total 1050 ml Balance 1050 ml Laboratory Data 24H LABS Laboratory Tests 2 10/28/19 03:55: Neutrophils (%) (Auto) , Nucleated Red Blood Cells % (auto) 0.0, Neutrophils 82H, Band Neutrophils 7, Lymphocytes (Manual) 3L, Monocytes (Manual) 2, Metamyelocytes 6H, Toxic Vacuolation 2+, Platelet Estimate NORMAL, Clumped Platelets SMALL AMT, Urine Color YELLOW, Urine Appearance HAZY, Urine pH 5.0, Urine Specific [place] 1.026, Urine Protein NEGATIVE, Urine Glucose (Auto)(UA) 3+H, Urine Ketones (Auto) TRACEH, Urine Blood 2+H, Urine Nitrite NEGATIVE, Urine Bilirubin NEGATIVE, Urine Urobilinogen 0.2, Urine Leukocyte Esterase (Auto) NEGATIVE, Urine WBC (Auto) 0, Urine RBC (Auto) 9H, Urine Hyaline Casts (Auto) 0, Urine Bacteria (Auto) NEGATIVE, Urine Squamous Epithelial Cells 0, Urine Sperm (Auto) , Anion Gap 14, Glomerular Filtration Rate 53.3, Lactic Acid Level 2.2*H, Calcium Level 8.2L, Total Bilirubin 0.3, Direct Bilirubin 0.2, Aspartate Amino Transf (AST/SGOT) 142H, Alanine Aminotransferase (ALT/SGPT) 108H, Alkaline Phosphatase 229H, Total Protein 5.8L, Albumin 2.3L, Albumin/Globulin Ratio 0.7, Thyroid Stimulating Hormone (TSH) 1.810, Free Thyroxine Index 2.6, Thyroxine (T4) 8.1, Triiodothyronine (T3) Uptake 32L 10/28/19 04:00: Bedside Glucose (Misc Panel) 352H 10/28/19 06:00: 10/28/19 08:09: Bedside Glucose (Misc Panel) 321H 10/28/19 08:21: Lactic Acid Followup at 4 Hours 0.9 10/28/19 09:41: Prothrombin Time 15.7H, Prothromb Time International Ratio 1.28, Activated Partial Thromboplast Time 29.0 10/28/19 09:53: Bedside Glucose (Misc Panel) 340H 10/28/19 10:01: Methicillin-Resist S.aureus DNA PCR NOT DETECTED 10/28/19 11:55: Bedside Glucose (Misc Panel) 329H 10/28/19 18:44: Bedside Glucose (Misc Panel) 175H CBC/BMP Laboratory Tests 10/28/19 03:55 Microbiology Microbiology 10/28/19 Blood Culture, Received Pending 10/28/19 Respiratory Virus Panel (PCR) (NUSRAT) - Final, Complete 10/28/19 Urine Culture, Received Pending 10/28/19 Blood Culture - Preliminary, Resulted Current Medications Current Medications Medications (Trade) Dose Ordered Sig/Tricia Route PRN Reason Start Time Stop Time Status Last Admin Dose Admin Acetaminophen (Tylenol Tab) 650 mg Q4H PRN PO PAIN OR FEVER 10/28/19 05:45 Al Hydrox/Mg Hydrox/Simethicone (Mylanta) 30 ml DAILY PRN PO DYSPEPSIA 10/28/19 05:45 Dextrose (Dextrose 50%) 25 ml ASDIRECTED PRN IV SEE LABEL COMMENTS 10/28/19 05:45 Glucagon (Glucagon) 1 mg ASDIRECTED PRN SC SEE LABEL COMMENTS 10/28/19 05:45 Glucose (Glucose) 16 GM ASDIRECTED PRN PO SEE LABEL COMMENTS 10/28/19 05:45 Home Med (Med Rec Complete!) ASDIRECTED XX 10/28/19 04:30 10/28/19 04:25 DC Insulin Detemir (Levemir Insulin) 10 units QAM SC 10/29/19 09:00 Insulin Detemir (Levemir Insulin) 80 units QPM SC 10/28/19 21:00 Insulin Human Lispro (HumaLOG INSULIN) SEE PROTOCOL TABLE Q6H SC 10/28/19 05:45 10/28/19 05:50 DC Insulin Human Lispro (HumaLOG INSULIN) SEE PROTOCOL TABLE Q6H SC 10/28/19 06:00 10/28/19 18:50 Norepinephrine Bitartrate 8 mg/ Dextrose 500 ml @ 37.5 mls/hr [id number] IV 10/28/19 08:45 10/28/19 16:13 DC Norepinephrine Bitartrate 8 mg/ Dextrose 500 ml @ 0 mls/hr Q0M IV 10/28/19 06:30 10/28/19 16:13 DC 10/28/19 06:53 Pantoprazole Sodium (Protonix) 40 mg DAILY IV 10/28/19 09:00 10/28/19 10:52 Piperacillin Sod/ Tazobactam Sod 3.375 gm/Dextrose 50 ml @ 50 mls/hr Q6H IV 10/28/19 10:00 10/28/19 16:10 Sodium Chloride 1,000 ml @ 150 mls/hr Q6H40M IV 10/28/19 05:45 10/28/19 14:27 Vancomycin HCl 1000 mg/IV Miscellaneous Supplies 1 each/ Dextrose 270 ml @ 270 mls/hr Q24H IV 10/28/19 06:00 10/28/19 06:38 Allergies Coded Allergies: duloxetine (Verified Adverse Reaction, Mild, NIGHTMARES, 10/28/19) lisinopril (Verified Adverse Reaction, Mild, CHEST PAIN, 10/28/19) Sumi Nguyen MD Oct 28, 2019 19:26
[2019-10-28] MEDS: LEVEMIR (INSULIN DETEMIR) 1 UNITS/0.01ML SC SCH (20:24)
[2019-10-28] MEDS: ACETAMINOPHEN TAB 650MG DOSE (2X325MG) PO PRN (20:39)
--- NOTE | 2019-10-28 21:33 | REP ---
ULTRASOUND-GUIDED ABSCESS DRAIN The procedure was performed under the direct supervision of Dr. Tam The patient has a history of multiloculated irregular hypodense lesion in the right hepatic lobe suspicious for abscess seen on a previous CT scan performed earlier today. The risks and benefits of the procedure were explained to the patient and informed consent was obtained. The liver abscess was localized using ultrasound guidance. The skin was prepped and draped in a sterile fashion. 1% lidocaine was used as a local anesthetic. Using ultrasound guidance a 20-gauge needle was inserted and advanced into the abscess. 15 ml of beige proteinaceous fluid was withdrawn and sent to the lab for analysis. The patient tolerated the procedure well and there were no immediate complications. After the appropriate amount of monitored convalescence the patient was discharged from the department. Electronically Signed by LISETTE Padron 10/28/2019 04:06 P Electronically Signed by Wiley Marcial MD 10/28/2019 09:24 P
[2019-10-28] MEDS: HEPARIN SOD (PORCINE) 5000UNITS/ML VIAL (J1644 PER 1000UNITS) SQ SCH (21:42)
[2019-10-28 21:49] LABS: HEMATOCRIT 30.5 % (42.0-52.0); HEMOGLOBIN 10.6 g/dl (13.5-17.5); MEAN CORPUSCULAR HEMOGLOBIN 30.4 pg (27.0-33.0); MEAN CORPUSCULAR HGB CONC 34.8 g/dl (32.0-36.5); MEAN CORPUSCULAR VOLUME 87.4 fl (80.0-96.0); PLATELET COUNT, AUTOMATED 212 10^3/uL (150-450); RED BLOOD COUNT 3.49 10^6/uL (4.30-6.10); WHITE BLOOD COUNT 12.5 10^3/uL (4.0-10.0)
[2019-10-28 22:29] LABS: BLOOD UREA NITROGEN 41 MG/DL (7-18); CALCIUM LEVEL 7.2 MG/DL (8.8-10.2); CARBON DIOXIDE LEVEL 22 MEQ/L (21-32); CHLORIDE LEVEL 112 MEQ/L (98-107); CREATININE FOR GFR 0.92 MG/DL (0.70-1.30); GLOMERULAR FILTRATION RATE > 60.0 (>49); GLUCOSE, FASTING 100 MG/DL (70-100); MAGNESIUM LEVEL 2.1 MG/DL (1.8-2.4); POTASSIUM SERUM 3.6 MEQ/L (3.5-5.1); SODIUM LEVEL 143 MEQ/L (136-145)
[2019-10-29] VITALS (17 sets, daily range): BP systolic 100–128; BP diastolic 62–93
--- NOTE | 2019-10-29 01:57 | REP ---
Clinical: Chest pain. Crackles . Comparison: 10/28/2019 . Findings: The mediastinum and cardiac silhouette are stable and within normal limits for portable technique. The lung joseph are clear without acute consolidation, effusion, or pneumothorax. Skeletal structures are intact. Impression: No acute cardiopulmonary process appreciated. Electronically Signed by Javier Chavez MD 10/29/2019 01:48 A
[2019-10-29] MEDS: PIPERACILLIN/TAZOBACTAM SOD 3.375 GM in D5W MINI-BAG PLUS 50 ML IV SCH ×4 (03:39→21:04)
[2019-10-29 04:36] LABS: HEMATOCRIT 32.3 % (42.0-52.0); HEMOGLOBIN 11.2 g/dl (13.5-17.5); MEAN CORPUSCULAR HGB CONC 34.7 g/dl (32.0-36.5); MEAN CORPUSCULAR VOLUME 89.5 fl (80.0-96.0); PLATELET COUNT, AUTOMATED 205 10^3/uL (150-450); RED BLOOD COUNT 3.61 10^6/uL (4.30-6.10); WHITE BLOOD COUNT 13.7 10^3/uL (4.0-10.0)
[2019-10-29 05:00] LABS: ALBUMIN 1.9 GM/DL (3.2-5.2); ALT/SGPT 89 U/L (12-78); BILIRUBIN,TOTAL 0.4 MG/DL (0.2-1.0); BLOOD UREA NITROGEN 41 MG/DL (7-18); CALCIUM LEVEL 7.1 MG/DL (8.8-10.2); CARBON DIOXIDE LEVEL 24 MEQ/L (21-32); CHLORIDE LEVEL 110 MEQ/L (98-107); CREATININE FOR GFR 0.89 MG/DL (0.70-1.30); GLOMERULAR FILTRATION RATE > 60.0 (>49); GLUCOSE, FASTING 74 MG/DL (70-100); MAGNESIUM LEVEL 2.2 MG/DL (1.8-2.4); POTASSIUM SERUM 3.1 MEQ/L (3.5-5.1); SODIUM LEVEL 141 MEQ/L (136-145); TOTAL PROTEIN 5.1 GM/DL (6.4-8.2)
[2019-10-29] MEDS: VANCOMYCIN HCL 1,000 MG, VIAL MATE ADAPTER 1 EACH in D5W 250 ML IV SCH (05:53)
[2019-10-29] MEDS: HEPARIN SOD (PORCINE) 5000UNITS/ML VIAL (J1644 PER 1000UNITS) SQ SCH ×3 (05:54→21:04)
[2019-10-29] MEDS: HumaLOG INSULIN (NovoLOG) PER UNIT SC SCH ×5 (06:00→20:40)
[2019-10-29] MEDS: KCL 10MEQ/100ML SWI (KRUN) 10 MEQ in IV 1 EA IV SCH ×2 (06:47→07:56)
[2019-10-29] MEDS: PANTOPRAZOLE 40MG VIAL (C9113 PER 1) IV SCH (08:00)
[2019-10-29] MEDS: NS 1,000 ML IV SCH (10:12)
[2019-10-29] MEDS: LEVEMIR (INSULIN DETEMIR) 1 UNITS/0.01ML SC SCH ×2 (10:55→20:40)
[2019-10-29] MEDS ORDERED: POTASSIUM CHLORIDE 10 MEQ SR TABLET PO ONE (11:45)
--- NOTE | 2019-10-29 14:12 | IPNPDOC ---
Text Note Date of Service The patient was seen on 10/29/19. NOTE SUBJECTIVE: -Doing much better today -been off levophed since 10.30AM on 10/27 -had drainage of liver collection?abscess? with pending cytology (did not see fluid cultures pending?) PHYSICAL EXAMINATION: VITALS: HDS, afebrile GENERAL: No acute distress, resting comfortably, sitting up, requesting something to eat EYES: PERRLA, EOMI HENT, MOUTH: Normocephalic, atraumatic, MMM NECK: SUPPLE, no JVD, no noted adenopathy CV: Regular rate and rhythm, S1S2 normal, no murmurs/rubs/gallops RESPIRATORY: Clear to auscultation bilaterally, no rales/rhonchi/wheezes GI: Normoactive bowel sounds, soft, nontender, nondistended, no rebound or guarding, no organomegaly EXT: Normal ROM. No cyanosis, clubbing, swelling, joint deformity, extremity edema INTEGUMENTARY: Intact, no rashes, no lesions, no erythema NEUROLOGIC: Cranial Nerves II-XII are intact, no focal deficits PSYCHIATRIC: Mood and affect are normal CURRENT MEDICATIONS: Please see below LABORATORY DATA: WBC 13.7 hgb 11.2 platelets 205 na 141 K 3.1 (repleted) cytology pending from liver fluid collection. not sure that fluid cultures were sent because I do not see them as pending? IMAGING: no new interval imaging Admission 10/27 CT abd/pelvis: 1. Multiloculated irregular hypodense lesion in the right hepatic lobe. Suspicious for abscess with history of fever. Differential diagnosis also includes malignancy. 2. Thickened left adrenal gland. Mildly increased from prior. If patient has no cancer history, consider follow-up adrenal CT or resection. If patient has a history of cancer, consider biopsy or PET/CT for patients with cancer history. (ArchuletaJosr Dunlap, ACR White Paper, 2017) 3. Mild nodularity of the right adrenal gland. No change from prior. 4. Diffuse interlobular septal thickening. Suspect mild pulmonary edema. 5. Benign-appearing cyst in the upper pole of left kidney. No follow-up is necessary. 6. Additional findings as described. 10/27 CXR: Right infrahilar atelectasis/early infiltrate cannot be excluded. No obvious effusion. ASSESSMENT: 64 y/o M admitted with septic shock with ongoing CAP and right liver abscess vs. mass with septic shock now resolved being transferred from the ICU to PCU. PLAN: 1. Septic shock 2/2 Community acquired PNA, sepsis: Septic shock resolved. -continue Zosyn, dc Vancomycin after MRSA was negative. Day #2 of abx -One blood culture growing gram neg rods, likely contaminant - f/u other BCx, sputum culture. -Telemetry 2. Liver abscess vs. mass, sepsis. -s/p US guided drainage on 10/27. -C/w abx above. -F/u cytology, not sure that cultures were sent, will check with micro lab -Surgery was consulted, recommended IR drainage that was done on 10/27 3. Gram neg crispin bacteremia. 1/2 sets of Blood cultures was positive. Possibly contaminant, will follow up cultures -On zosyn which should cover GNRs. -F/u daily CBC, BCx, sputum cx, and investigate if liver collection fluids was sent for microbiology studies 4. Syncope. Likely 2/2 to septic shock. Unlikely neuro vs. cardiac etiology. -Telemetry -TTE pending read -trop negative 5. Acute kidney injury2/2 preprenal in presence of dehydration and hypotension. Resolved. -s/p hydration -avoid nephrotoxic meds 6. DM type II. BS >300 -continue levemir. -ISS AC/HS -consistent carb diet AC/HS blood sugar checks 7. History of HTN: -holding meds given recent septic shock. Will resume when clinically appropriate 8. Metabolic encephalopathy likely 2/2 to sepsis. Resolved. 9. DVT px. Heparin SC. DISPOSITION: Transfer to PCU with telemetry. PT/OT. Plan is discharge home when medically improved. VS,Fishbone, I+O VS, Fishbone, I+O Laboratory Tests 10/28/19 21:41 10/29/19 04:25 Vital Signs Date Time Temp Pulse Resp B/P (MAP) Pulse Ox O2 Delivery O2 Flow Rate FiO2 10/29/19 12:34 86 110/65 (80) 10/29/19 12:00 98.1 18 98 Room Air I&O- Last 24 Hours up to 6 AM 10/29/19 06:00 Intake Total 5250 ml Output Total 2514 ml Balance 2736 ml NEERAJ SMITH MD Oct 29, 2019 14:12
[2019-10-29] MEDS ORDERED: SLF 3 ML SYR IV PRN (14:15)
--- NOTE | 2019-10-29 16:06 | IPNPDOC ---
Text Note Date of Service The patient was seen on 10/29/19. NOTE Patient seen this morning, denies any abdominal discomfort. He has been relat ively able overnight. He came in with hypotension which promptly resolved with IV fluid hydration though he was also started on the [place] for a while. He had what appears to be aspiration of liver abscess yesterday by interventional radiology. No drains were left in place. Vital signs He is afebrile, no tachycardia. Hemodynamically stable On examination Patient looks comfortable He has anicteric sclerae No jugular venous distention Regular heart rate and rhythm without murmurs Lungs sounds are clear to auscultation bilaterally without wheezing Abdomen is soft, nontender with no distention. No significant extremity edema Labs were reviewed WBCs 13,000 AST, ALC and alkaline phosphatase mildly improved though still an abdominal range Impression and plan Looks to be liver abscess status post aspiration It is not clear to me why a drain was not left in place. He is not having any abdominal discomfort or having any fever from this. We will await microbiology results as well as cytology results. He might be worthwhile to repeat urine ultrasound of the liver CT scan of the abdomen prior to discharging him. VS,Fishbone, I+O VS, Fishbone, I+O Laboratory Tests 10/28/19 21:41 10/29/19 04:25 Vital Signs Date Time Temp Pulse Resp B/P (MAP) Pulse Ox O2 Delivery O2 Flow Rate FiO2 10/29/19 13:50 98.0 76 18 117/77 (90) 98 Room Air I&O- Last 24 Hours up to 6 AM 10/29/19 06:00 Intake Total 5250 ml Output Total 2514 ml Balance 2736 ml JOSELINE ULLOA MD Oct 29, 2019 16:06
[2019-10-29] MEDS: SLF 3 ML SYR IV SCH (21:04)
[2019-10-29] MEDS: ACETAMINOPHEN TAB 650MG DOSE (2X325MG) PO PRN (21:04)
[2019-10-30] VITALS: BP 101/64
--- NOTE | 2019-10-30 00:23 | ECHO ---
DATE OF PROCEDURE: 10/29/2019 REFERRING PHYSICIAN: Dr. Sumi Nguyen INDICATION: Syncope. HEIGHT: 168 cm WEIGHT: 74 kg 2D MEASUREMENTS: Aortic root: 3.9 cm Left atrium: 3.6 cm Left ventricle diastole: 4.8 cm Ventricular septum: 0.97 cm Posterior wall: 1.10 cm Aortic annulus: 2.3 cm Inferior vena cava: 2.2 cm DOPPLER MEASUREMENTS: No aortic stenosis. No aortic regurgitation. Aortic valve velocity: 125 cm/s Mild mitral regurgitation, within normal limits. No mitral stenosis. Mitral E velocity: 78.5 cm/s Mitral A velocity: 90.8 cm/s Mitral deceleration time: 187 ms Very mild tricuspid regurgitation. Estimated right ventricle systolic pressure: 28-33 mmHg assuming a right atrial pressure of 5-10 mmHg. No pulmonic regurgitation. Pulmonary artery systolic pressure: 25 mmHg MITRAL ANNULAR TISSUE DOPPLER: E prime septal: 5.1 cm/s E prime lateral: 7.1 cm/s DESCRIPTION: Rhythm was sinus. Image quality was fair. This was a 2D, M-mode, color flow Doppler and pulse wave Doppler examination and included mitral annular tissue Doppler. CONCLUSIONS: 1. Normal left ventricle internal dimensions and wall thickness. Normal regional left ventricular (LV) wall motion and wall thickening. Normal LV systolic function. Left ventricular ejection fraction (LVEF) 60% by visual estimate. Grade 1 LV diastolic dysfunction (impaired relaxation filling pattern). 2. Mild dilatation of the aortic root at the level of the sinuses of Valsalva (3.9 cm). 3. Mild mitral annular calcification with mild mitral regurgitation. 4. No pericardial effusion. 5. Otherwise normal appearing echocardiogram-Doppler findings.
[2019-10-30] MEDS: ACETAMINOPHEN TAB 650MG DOSE (2X325MG) PO PRN ×3 (03:52→19:47)
[2019-10-30] MEDS: PIPERACILLIN/TAZOBACTAM SOD 3.375 GM in D5W MINI-BAG PLUS 50 ML IV SCH ×4 (03:52→21:07)
[2019-10-30 04:00] VITALS: BP 125/78
[2019-10-30 04:44] LABS: HEMATOCRIT 32.1 % (42.0-52.0); HEMOGLOBIN 10.9 g/dl (13.5-17.5); MEAN CORPUSCULAR HEMOGLOBIN 29.9 pg (27.0-33.0); MEAN CORPUSCULAR VOLUME 88.2 fl (80.0-96.0); PLATELET COUNT, AUTOMATED 179 10^3/uL (150-450); RED BLOOD COUNT 3.64 10^6/uL (4.30-6.10); WHITE BLOOD COUNT 18.1 10^3/uL (4.0-10.0)
[2019-10-30 05:10] LABS: BLOOD UREA NITROGEN 31 MG/DL (7-18); CARBON DIOXIDE LEVEL 22 MEQ/L (21-32); CHLORIDE LEVEL 108 MEQ/L (98-107); CREATININE FOR GFR 0.78 MG/DL (0.70-1.30); GLOMERULAR FILTRATION RATE > 60.0 (>49); GLUCOSE, FASTING 134 MG/DL (70-100); POTASSIUM SERUM 3.7 MEQ/L (3.5-5.1); SODIUM LEVEL 140 MEQ/L (136-145)
[2019-10-30] MEDS: HEPARIN SOD (PORCINE) 5000UNITS/ML VIAL (J1644 PER 1000UNITS) SQ SCH ×3 (06:04→21:06)
[2019-10-30] MEDS: SLF 3 ML SYR IV SCH ×3 (06:04→21:07)
--- NOTE | 2019-10-30 06:07 | REP ---
Clinical: Syncope . Technique: Marcial scale and color Doppler evaluation using linear high frequency transducer Findings: Two-dimensional marcial scale and color images demonstrate minimal intimal thickening with normal laminar flow and no appreciable narrowing. Color Doppler interrogation demonstrates normal arterial wave patterns and velocities with no significant spectral broadening. Normal flow direction is appreciated in the bilateral vertebral arteries. RIGHT (cm/s) LEFT (cm/s) ICA peak systolic velocity 72.0 56.6 ICA diastolic velocity 35.7 30.1 ECA peak systolic velocity 81.0 54.6 CCA peak systolic velocity 68.2 74.3 ICA/CCA ratio 1.06 0.76 Impression: No hemodynamically significant areas of narrowing or stenosis appreciated. Based on set standards narrowing falls within the less than 50% range. Electronically Signed by Javier Chavez MD 10/30/2019 05:58 A
[2019-10-30 07:51] VITALS: BP 126/81
[2019-10-30] MEDS: LEVEMIR (INSULIN DETEMIR) 1 UNITS/0.01ML SC SCH ×2 (08:27→20:45)
[2019-10-30] MEDS: PANTOPRAZOLE 40MG VIAL (C9113 PER 1) IV SCH (08:28)
[2019-10-30] MEDS: HumaLOG INSULIN (NovoLOG) PER UNIT SC SCH ×4 (08:28→20:44)
[2019-10-30 12:00] VITALS: BP 123/84
--- NOTE | 2019-10-30 12:29 | IPNPDOC ---
Text Note Date of Service The patient was seen on 10/30/19. NOTE SUBJECTIVE: -had a fever overnight to 102.6 -10/27 BCx grew Klebs without clear sources though he has liver collection?abscess? that was drained. -Otherwise no complaints this AM PHYSICAL EXAMINATION: VITALS: HDS, afebrile GENERAL: No acute distress, resting comfortably, sitting up, requesting something to eat EYES: PERRLA, EOMI HENT, MOUTH: Normocephalic, atraumatic, MMM NECK: SUPPLE, no JVD, no noted adenopathy CV: Regular rate and rhythm, S1S2 normal, no murmurs/rubs/gallops RESPIRATORY: Clear to auscultation bilaterally, no rales/rhonchi/wheezes GI: Normoactive bowel sounds, soft, nontender, nondistended, no rebound or guarding, no organomegaly EXT: Normal ROM. No cyanosis, clubbing, swelling, joint deformity, extremity edema INTEGUMENTARY: Intact, no rashes, no lesions, no erythema NEUROLOGIC: Cranial Nerves II-XII are intact, no focal deficits PSYCHIATRIC: Mood and affect are normal CURRENT MEDICATIONS: Please see below LABORATORY DATA: WBC 18.1 hgb 9.8 na 139 K 3.5 cytology pending from liver fluid collection. not sure that fluid cultures were sent because I do not see them as pending? 10/27 BCx 1/2 grew Klebs MRSA negative IMAGING: no new interval imaging Admission 10/27 CT abd/pelvis: 1. Multiloculated irregular hypodense lesion in the right hepatic lobe. Suspicious for abscess with history of fever. Differential diagnosis also includes malignancy. 2. Thickened left adrenal gland. Mildly increased from prior. If patient has no cancer history, consider follow-up adrenal CT or resection. If patient has a history of cancer, consider biopsy or PET/CT for patients with cancer history. (ArchuletaJosr Dunlap, ACR White Paper, 2017) 3. Mild nodularity of the right adrenal gland. No change from prior. 4. Diffuse interlobular septal thickening. Suspect mild pulmonary edema. 5. Benign-appearing cyst in the upper pole of left kidney. No follow-up is necessary. 6. Additional findings as described. 10/27 CXR: Right infrahilar atelectasis/early infiltrate cannot be excluded. No obvious effusion. ASSESSMENT: 64 y/o M admitted with septic shock with ongoing CAP and right liver abscess vs. mass with septic shock now resolved with course c/b persistent fevers. PLAN: 1. Septic shock 2/2 CAP, Klebs bacteremia without clear sources though he also had liver collection?/abscess? that was drained: Septic shock resolved however with persistent fever. -continue Zosyn, dc'd Vancomycin on 10/28 after MRSA was negative. Day #3 of pip/tazo -1 of 2 blood cultures from 10/27 grew Klebs. Will obtain new blood cultures this morning, given the fever overnight. - f/u other BCx, sputum culture. -Telemetry -ID consulted without clarity on how he would have seeded to his liver and persistent fevers. 2. Liver abscess vs. mass, sepsis. -s/p US guided drainage on 10/27. -C/w abx above. -F/u cytology, not sure that cultures were sent, will check with micro lab -Surgery was consulted, recommended IR drainage that was done on 10/27 3. Klebsiella bacteremia. 1/2 sets of Blood cultures was positive. -On zosyn, Klebs covered. Day 3 -F/u daily CBC, BCx, sputum cx 4. Syncope. Likely 2/2 to septic shock. Unlikely neuro vs. cardiac etiology. -Telemetry -TTE pending read -trop negative 5. Acute kidney injury2/2 preprenal in presence of dehydration and hypotension. Resolved. -s/p hydration -avoid nephrotoxic meds 6. DM type II. BS >300 -continue levemir. -ISS AC/HS -consistent carb diet AC/HS blood sugar checks 7. History of HTN: -holding meds given recent septic shock. Will resume when clinically appropriate 8. Metabolic encephalopathy likely 2/2 to sepsis. Resolved. 9. DVT px. Heparin SC. DISPOSITION: PCU with telemetry. PT/OT. VS,Fishbone, I+O VS, Fishbone, I+O Laboratory Tests 10/30/19 04:26 Vital Signs Date Time Temp Pulse Resp B/P (MAP) Pulse Ox O2 Delivery O2 Flow Rate FiO2 10/30/19 07:51 97.1 77 18 126/81 (96) 98 Room Air I&O- Last 24 Hours up to 6 AM 10/30/19 06:00 Intake Total 1540 ml Output Total 850 ml Balance 690 ml NEERAJ SMITH MD Oct 30, 2019 09:10
[2019-10-30 15:57] VITALS: BP 141/72
[2019-10-30 20:00] VITALS: BP 154/86
[2019-10-30] MEDS ORDERED: KETOROLAC 30 MG/ML 1ML VIAL IV ONE (20:45)
[2019-10-31] VITALS: BP 132/87
[2019-10-31] MEDS: PIPERACILLIN/TAZOBACTAM SOD 3.375 GM in D5W MINI-BAG PLUS 50 ML IV SCH ×4 (03:06→21:12)
[2019-10-31 04:00] VITALS: BP 135/88
[2019-10-31 05:22] LABS: ALBUMIN 1.8 GM/DL (3.2-5.2); BILIRUBIN,DIRECT 0.3 MG/DL (0.0-0.2); BILIRUBIN,TOTAL 0.6 MG/DL (0.2-1.0); TOTAL PROTEIN 4.9 GM/DL (6.4-8.2)
[2019-10-31] MEDS: SLF 3 ML SYR IV SCH ×3 (06:04→21:12)
[2019-10-31] MEDS: HEPARIN SOD (PORCINE) 5000UNITS/ML VIAL (J1644 PER 1000UNITS) SQ SCH ×3 (06:04→21:12)
[2019-10-31 08:00] VITALS: BP 142/88
[2019-10-31] MEDS: PANTOPRAZOLE 40MG VIAL (C9113 PER 1) IV SCH (09:07)
[2019-10-31] MEDS: LEVEMIR (INSULIN DETEMIR) 1 UNITS/0.01ML SC SCH ×2 (09:07→21:00)
[2019-10-31] MEDS: HumaLOG INSULIN (NovoLOG) PER UNIT SC SCH ×4 (09:08→21:00)
[2019-10-31 10:14] LABS: HEMATOCRIT 31.8 % (42.0-52.0); MEAN CORPUSCULAR HEMOGLOBIN 30.3 pg (27.0-33.0); MEAN CORPUSCULAR HGB CONC 34.6 g/dl (32.0-36.5); MEAN CORPUSCULAR VOLUME 87.6 fl (80.0-96.0); PLATELET COUNT, AUTOMATED 144 10^3/uL (150-450); RED BLOOD COUNT 3.63 10^6/uL (4.30-6.10); WHITE BLOOD COUNT 15.2 10^3/uL (4.0-10.0)
[2019-10-31 10:31] LABS: EOSINOPHILS 1 % (0-3); HYPOCHROMASIA 2+; LYMPHOCYTES 5 % (16-44); MONOCYTES 1 % (0-5); NEUTROPHILS 87 % (28-66); PLATELET ESTIMATE DECREASED (NORMAL)
[2019-10-31 10:32] LABS: ANISOCYTOSIS 1+
[2019-10-31 10:37] LABS: ERYTHROCYTE SEDIMENTATION RATE 40 mm/hr (0-20)
[2019-10-31 11:05] LABS: BLOOD UREA NITROGEN 25 MG/DL (7-18); CALCIUM LEVEL 7.2 MG/DL (8.8-10.2); CARBON DIOXIDE LEVEL 19 MEQ/L (21-32); CHLORIDE LEVEL 105 MEQ/L (98-107); CREATININE FOR GFR 0.85 MG/DL (0.70-1.30); GLOMERULAR FILTRATION RATE > 60.0 (>49); GLUCOSE, FASTING 321 MG/DL (70-100); POTASSIUM SERUM 3.2 MEQ/L (3.5-5.1); SODIUM LEVEL 137 MEQ/L (136-145)
[2019-10-31 12:00] VITALS: BP 121/83
[2019-10-31] MEDS ORDERED: POTASSIUM CHLORIDE 10 MEQ SR TABLET PO ONE (12:00)
--- NOTE | 2019-10-31 14:30 | IPNPDOC ---
Text Note Date of Service The patient was seen on 10/31/19. NOTE I followed up on Mr. Jha today. It looks like he has been having febrile temperature spikes up to 102 over the past 2 evenings. He currently denies any ongoing abdominal discomfort and is able to tolerate oral intake. He reports a good appetite. He has been having some semi-formed stool throughout his stay here in the hospital. Vital signs MAXIMUM TEMPERATURE is 102.5 2040 last night CURRENT TEMPERATURE is 97 at 12 noon today On examination Patient looks relatively well, very comfortable, no current complaints Lungs are clear to auscultation bilaterally with no wheezing Heart rate and rhythm are regular with no murmurs. Abdomen is soft, nondistended nontender over the right upper quadrant area No significant extremity edema Review of his laboratory shows white cell count of 15.2 decreased from 18.1 yesterday CRP was checked today and has 13.2 Impression Liver abscess Looking at the microbiology and I don't see any microbiology sent for the liver abscess. He was sent for cytology and there is no evidence of malignancy on that sample. So unfortunately week are not able to tailor the antibiotics. I will repeat the ultrasound today and if he continues to have significant collection which I suspect he does, he should be sent for drainage of the abscess with as big a drain left into the collection specially if there is thick collection. Please arrange for the abscess drainage if the ultrasound is positive. VS,Fishbone, I+O VS, Fishbone, I+O Laboratory Tests 10/31/19 10:07 Vital Signs Date Time Temp Pulse Resp B/P (MAP) Pulse Ox O2 Delivery O2 Flow Rate FiO2 10/31/19 12:00 97.0 74 17 121/83 (96) 98 Room Air I&O- Last 24 Hours up to 6 AM 10/31/19 06:00 Intake Total 1410 ml Output Total 1025 ml Balance 385 ml JOSELINE ULLOA MD Oct 31, 2019 14:30
--- NOTE | 2019-10-31 15:00 | IPNPDOC ---
Text Note Date of Service The patient was seen on 10/31/19. NOTE SUBJECTIVE: -still febrile --> will order liver US. No focal pain. Was just really ill when he had the fever yesterday. Feels ok this morning. PHYSICAL EXAMINATION: VITALS: HDS, afebrile GENERAL: No acute distress, resting comfortably, sitting up, requesting something to eat EYES: PERRLA, EOMI HENT, MOUTH: Normocephalic, atraumatic, MMM NECK: SUPPLE, no JVD, no noted adenopathy CV: Regular rate and rhythm, S1S2 normal, no murmurs/rubs/gallops RESPIRATORY: Clear to auscultation bilaterally, no rales/rhonchi/wheezes GI: Normoactive bowel sounds, soft, nontender, nondistended, no rebound or guarding, no organomegaly EXT: Normal ROM. No cyanosis, clubbing, swelling, joint deformity, extremity edema INTEGUMENTARY: Intact, no rashes, no lesions, no erythema NEUROLOGIC: Cranial Nerves II-XII are intact, no focal deficits PSYCHIATRIC: Mood and affect are normal CURRENT MEDICATIONS: Please see below LABORATORY DATA: WBC 15.2 hgb 11 K 3.2 Unfortunately there was no micro ordered on the liver abscess fluid 10/27 BCx 05/23 grew Klebs, subsequent blood cultures have been negative MRSA negative IMAGING: no new interval imaging. Pending abd US Admission 10/27 CT abd/pelvis: 1. Multiloculated irregular hypodense lesion in the right hepatic lobe. Suspicious for abscess with history of fever. Differential diagnosis also includes malignancy. 2. Thickened left adrenal gland. Mildly increased from prior. If patient has no cancer history, consider follow-up adrenal CT or resection. If patient has a history of cancer, consider biopsy or PET/CT for patients with cancer history. (ArchuletaJosr Dunlap, ACR White Paper, 2017) 3. Mild nodularity of the right adrenal gland. No change from prior. 4. Diffuse interlobular septal thickening. Suspect mild pulmonary edema. 5. Benign-appearing cyst in the upper pole of left kidney. No follow-up is necessary. 6. Additional findings as described. 10/27 CXR: Right infrahilar atelectasis/early infiltrate cannot be excluded. No obvious effusion. ASSESSMENT: 64 y/o M admitted with septic shock with ongoing CAP and right liver abscess vs. mass with septic shock now resolved with course c/b persistent fevers. PLAN: 1. Septic shock 2/2 CAP, Klebs bacteremia without clear sources though he also had liver abscess that was drained, unfortunately without cultures sent: Septic shock resolved however with persistent fever. -continue Zosyn, dc'd Vancomycin on 10/28 after MRSA was negative. Day #4 of pip/tazo -1 of 2 blood cultures from 10/27 grew Klebs. Will obtain new blood cultures this morning, given the fever overnight. - f/u other BCx NGTD -Telemetry -ID consulted, appreciate recs -repeating abdominal imaging given persistent fevers with ultrasound (already ordered by Dr. Callahan) 2. Liver abscess -s/p US guided drainage on 10/27. -C/w abx above. -No malignant cells on cytology, no cultures were sent -Surgery was consulted, recommended IR drainage that was done on 10/27 -Given persistent fevers, getting follow up abdominal US 3. Klebsiella bacteremia. 1/2 sets of Blood cultures was positive. -On zosyn, Klebs covered. Day 4 -F/u daily CBC, BCx 4. Syncope. Likely 2/2 to septic shock. Unlikely neuro vs. cardiac etiology. -Telemetry -TTE w/ normal EF, no vegetations and grade 1 diastolic dysfunction -trop negative 5. Acute kidney injury2/2 preprenal in presence of dehydration and hypotension. Resolved. -s/p hydration -avoid nephrotoxic meds 6. DM type II. BS >300 -continue levemir. -ISS AC/HS -consistent carb diet AC/HS blood sugar checks 7. History of HTN: -holding meds given recent septic shock. Will resume when clinically appropriate 8. Metabolic encephalopathy likely 2/2 to sepsis. Resolved. 9. DVT px. Heparin SC. DISPOSITION: PCU with telemetry. PT/OT. VS,Fishbone, I+O VS, Fishbone, I+O Laboratory Tests 10/31/19 10:07 Vital Signs Date Time Temp Pulse Resp B/P (MAP) Pulse Ox O2 Delivery O2 Flow Rate FiO2 10/31/19 12:00 97.0 74 17 121/83 (96) 98 Room Air I&O- Last 24 Hours up to 6 AM 10/31/19 05:59 Intake Total 1410 ml Output Total 825 ml Balance 585 ml NEERAJ SMITH MD Oct 31, 2019 15:00
[2019-10-31 16:00] VITALS: BP 138/80
[2019-10-31 20:00] VITALS: BP 155/82
--- NOTE | 2019-10-31 20:16 | REPVR ---
PROCEDURE INFORMATION: Exam: US Abdomen Limited, Right Upper Quadrant Exam date and time: 10/31/2019 7:49 PM Age: 64 years old Clinical indication: Condition or disease; Abscess; Abscess location: RT lobe liver; Additional info: Ffup on liver abscess TECHNIQUE: Imaging protocol: Real-time ultrasound of the abdomen with image documentation. Examination was focused on the right upper quadrant. COMPARISON: CT ABD/PEL W/IV CONTRAST ONLY 10/28/2019 5:41 AM FINDINGS: Heterogeneous hypoechoic focus at the right hepatic lobe measuring 7.4 x 7.0 x 8.6 centimetres. Right kidney is without hydronephrosis. Gallbladder wall thickening measuring 3.9 mm. Trace pericholecystic fluid. Probable sludge ball within the gallbladder measuring up to 2.4 centimetres. Common bile duct measures normal caliber. IMPRESSION: 1. Heterogeneous hypoechoic focus at the right hepatic lobe measuring 7.4 x 7.0 x 8.6 centimetres corresponding to hypodense lesion on recent CT examination. 2. Mild gallbladder wall thickening measuring 3.9 mm with minimal pericholecystic fluid. 3. Probable sludge ball within the gallbladder measuring up to 2.4 cm, neoplastic process is not excluded and follow-up is recommended. Electronically signed by: Victor Hugo Solo On 10/31/2019 20:16:08 PM
[2019-11-01] VITALS: BP 135/78
[2019-11-01] MEDS: ACETAMINOPHEN TAB 650MG DOSE (2X325MG) PO PRN (01:53)
[2019-11-01] MEDS: PIPERACILLIN/TAZOBACTAM SOD 3.375 GM in D5W MINI-BAG PLUS 50 ML IV SCH ×2 (03:34→08:54)
[2019-11-01 04:00] VITALS: BP 138/81
--- NOTE | 2019-11-01 04:38 | CR ---
DATE OF CONSULTATION: 10/31/2019 Asked to consult by Dr. Bautista regarding liver abscess and bacteremia with Klebsiella. HISTORY OF PRESENT ILLNESS: Mr. Jha is a pleasant 64-year-old gentleman with a history of insulin-dependent diabetes with neuropathy, hypertension, who presented to the hospital, brought in by emergency medical service (EMS) after he was found by his in the bathroom unconscious. Patient was confused on admission. He does not recall what happened around that time period. He recalls having had a previous episode of syncope about a couple days prior to admission as well. He denied having any fevers at home, nausea, vomiting, diarrhea, abdominal pain. He has no previous history of diverticulitis or abdominal issues. He has had no melena, blood in his stools. The patient states that since he retired from [employer] in March, he was planning to lose some weight but he lost about 25 pounds and that was unexpected. He states he has had a decreased appetite but otherwise he has been feeling well. PAST MEDICAL HISTORY: Is significant for insulin-dependent diabetes with peripheral neuropathy, hypertension, osteoarthritis, gastroesophageal reflux disease, hyperlipidemia, osteoarthritis. He follows up at the [facility] with Dr. Morataya. PAST SURGICAL HISTORY: Right total knee replacement. ALLERGIES: DULOXETINE gives him nightmares. LISINOPRIL chest pain. FAMILY HISTORY: His son has Asperger syndrome and is 19 years old; he still lives at home. SOCIAL HISTORY: He smokes less than half a pack a day. His does not know; she quit 10 years ago, and he has been sneaking his cigarettes since then. No alcohol or drug use. He lives with his ; they have been 40 years, and they have two sons that live at home. MEDICATION: - insulin sliding scale - Levemir 10 units subcutaneous every morning - Zosyn 3.375 grams IV every 6 hours - pantoprazole 40 mg IV daily - Tylenol as needed 650 mg by mouth every 4 hours LABS: White count 15.2, down from 18.1 yesterday. Hemoglobin 11, hematocrit 31.8, platelets 144, 87% neutrophils, 6% bands, 5% lymphocytes, ESR 40. Sodium 137, potassium 3.2, chloride 105, bicarbonate 19, BUN 25, creatinine 0.85, glucose 321, calcium 7.2, bilirubin 0.6, AST 50, ALT 62, alkaline phosphatase 320, CRP 13.2, total protein 4.9, albumin 1.8. PT 15.7, PTT 29. MRSA screen was negative. Glucose between 187 and 275. Blood cultures on 10/28/2019: One out of two was positive for Klebsiella oxytoca, resistant to ampicillin and Unasyn. Abscess culture drained 12 mL of pus but was not sent to microbiology. It was sent for cytology, which showed abundant neutrophils, but no culture was sent. Repeat blood cultures were done on 10/30/2019. No growth after 24 hours. IMAGING: Chest x-ray 10/28/2019: No acute cardiopulmonary process. Vascular ultrasound: No stenosis of significance. CT abdomen and pelvis showed a multiloculated irregular hypodense lesion in the right hepatic lobe measuring 5.6 x 6.3 x 7 cm. No capsule evident. No calcified stones. Mild nodularity of the right adrenal gland. Recommended followup PET/CT. Benign appearing cyst in the left kidney. Ultrasound-guided aspiration: 15 mL of beige proteinaceous fluid was withdrawn and sent to the lab for analysis. PHYSICAL EXAMINATION: He is a healthy looking elderly gentleman in no acute distress. Temperature is 99.2, pulse 81, respirations 17, blood pressure 138/80, oxygen saturation 97% on room air. Heart: Normal S1, S2. No murmurs, rubs, or gallops. Lungs: Are clear. No wheezes, rales, or rhonchi. Abdomen: Soft, nontender. No hepatosplenomegaly. Back: No costovertebral angle (CVA) or lumbosacral tenderness. Extremities: No calf tenderness. No clubbing. No cyanosis. He has hallux valgus deformities of both toes. Neck: Is supple. No jugular venous distention (JVD). No bruits. Oropharynx: No lesions. No thrush. IMPRESSION: This is a 64-year-old gentleman who was admitted with syncopal episode and sepsis with bacteremia from Klebsiella oxytoca. He was found to have a liver abscess that was drained. Patient clinically improving but still has fevers. He had drainage of the abscess, but cultures were not sent. He has been on intravenous (IV) Zosyn but in spite of that, the patient has continued to be febrile. He will have followup liver ultrasound today and if there is residual abscess, he may need another drainage procedure and a drainage tube placed. Most likely, the liver abscess is from Klebsiella and possibly polymicrobial. The patient has significant history for a 25-pound weight loss in the past 6 months, which is concerning for malignancy. Possibly of colonic origin. PLAN: Continue with IV Zosyn at 3.375 grams every 6 hours. Add Entamoeba histolytica serum antibody. Ask Dr. Callahan to consider getting a colonoscopy at some point before discharge to look for possible diverticulitis or malignancy as a source of his bacteremia and liver abscess. If there is a residual liver abscess that needs to be drained, make sure it is sent for aerobic, anaerobic, and fungal pathogens.
[2019-11-01 05:12] LABS: ALBUMIN 1.8 GM/DL (3.2-5.2); BILIRUBIN,DIRECT 0.2 MG/DL (0.0-0.2); BILIRUBIN,TOTAL 0.6 MG/DL (0.2-1.0); TOTAL PROTEIN 5.5 GM/DL (6.4-8.2)
[2019-11-01] MEDS: HEPARIN SOD (PORCINE) 5000UNITS/ML VIAL (J1644 PER 1000UNITS) SQ SCH ×3 (05:26→21:50)
[2019-11-01] MEDS: SLF 3 ML SYR IV SCH ×3 (05:26→21:50)
[2019-11-01 08:00] VITALS: BP 126/78
[2019-11-01] MEDS: PANTOPRAZOLE 40MG VIAL (C9113 PER 1) IV SCH (08:54)
[2019-11-01] MEDS: HumaLOG INSULIN (NovoLOG) PER UNIT SC SCH ×4 (08:55→21:50)
[2019-11-01] MEDS: LEVEMIR (INSULIN DETEMIR) 1 UNITS/0.01ML SC SCH ×2 (08:55→21:50)
[2019-11-01] MEDS ORDERED: diphenhydrAMINE 50MG CAP PO STA (09:21)
[2019-11-01] MEDS ORDERED: diphenhydrAMINE 25MG CAP PO STA (09:24)
[2019-11-01] MEDS ORDERED: diphenhydrAMINE 50MG/ML VIAL (J1200) IM PRN (09:45)
[2019-11-01] MEDS: CIPROFLOXACIN 400 MG in IV 1 EA IV SCH ×2 (10:30→21:49)
--- NOTE | 2019-11-01 10:51 | IPNPDOC ---
Text Note Date of Service The patient was seen on 11/01/19. NOTE SUBJECTIVE: -Tmax last night was 100.3 -has diffuse pruritic rash since last night -had liver US that noted PHYSICAL EXAMINATION: VITALS: HDS, afebrile GENERAL: No acute distress, resting comfortably, sitting up, requesting something to eat EYES: PERRLA, EOMI HENT, MOUTH: Normocephalic, atraumatic, MMM NECK: SUPPLE, no JVD, no noted adenopathy CV: Regular rate and rhythm, S1S2 normal, no murmurs/rubs/gallops RESPIRATORY: Clear to auscultation bilaterally, no rales/rhonchi/wheezes GI: Normoactive bowel sounds, soft, nontender, nondistended, no rebound or guarding, no organomegaly EXT: Normal ROM. No cyanosis, clubbing, swelling, joint deformity, extremity edema INTEGUMENTARY: Intact, diffuse scattered erythematous pruritic rash spreading to peripheries from trunk and back, reporting pruritus since last night NEUROLOGIC: Cranial Nerves II-XII are intact, no focal deficits PSYCHIATRIC: Mood and affect are normal CURRENT MEDICATIONS: Please see below LABORATORY DATA: AM labs pending Unfortunately there was no micro ordered on the liver abscess fluid 10/27 BCx 05/23 grew Klebs, subsequent blood cultures have been negative MRSA negative IMAGING: no new interval imaging. Pending abd US Admission 10/27 CT abd/pelvis: 1. Multiloculated irregular hypodense lesion in the right hepatic lobe. Suspicious for abscess with history of fever. Differential diagnosis also includes malignancy. 2. Thickened left adrenal gland. Mildly increased from prior. If patient has no cancer history, consider follow-up adrenal CT or resection. If patient has a history of cancer, consider biopsy or PET/CT for patients with cancer history. (ArchuletaJosr Dunlap, ACR White Paper, 2017) 3. Mild nodularity of the right adrenal gland. No change from prior. 4. Diffuse interlobular septal thickening. Suspect mild pulmonary edema. 5. Benign-appearing cyst in the upper pole of left kidney. No follow-up is necessary. 6. Additional findings as described. 10/27 CXR: Right infrahilar atelectasis/early infiltrate cannot be excluded. No obvious effusion. Abd US on 10/30: Heterogeneous hypoechoic focus at the right hepatic lobe measuring 7.4 x 7.0 x 8.6 centimetres. Right kidney is without hydronephrosis. Gallbladder wall thickening measuring 3.9 mm. Trace pericholecystic fluid. Probable sludge ball within the gallbladder measuring up to 2.4 centimetres. Common bile duct measures normal caliber. IMPRESSION: 1. Heterogeneous hypoechoic focus at the right hepatic lobe measuring 7.4 x 7.0 x 8.6 centimetres corresponding to hypodense lesion on recent CT examination. 2. Mild gallbladder wall thickening measuring 3.9 mm with minimal pericholecystic fluid. 3. Probable sludge ball within the gallbladder measuring up to 2.4 cm, neoplastic process is not excluded and follow-up is recommended. ASSESSMENT: 64 y/o M admitted with septic shock with ongoing CAP and right liver abscess vs. mass with septic shock now resolved with course c/b persistent fevers with imaging showing persistent abscess despite drainage on 10/27. PLAN: 1. Septic shock 2/2 CAP, Klebs bacteremia without clear sources though he also had liver abscess that was drained, unfortunately without cultures sent: Septic shock resolved however with persistent fever. -Discontinue pip/tazo, was day #5 of pip/tazo. In the setting of the pruritic rash. Will give cipro/flagyl -1 of 2 blood cultures from 10/27 grew Klebs. All subsequent have been NGTD -Telemetry -ID consulted, appreciate recs, recommending further drainage and consideration of colonoscopy pre-discharge -repeated abdominal imaging given persistent fevers with ultrasound that showed persistent abscess (ordered by Dr. Callahan), surgery already ordered for drainage 2. Liver abscess -s/p US guided drainage on 10/27. Showing persistent collection on 10/30 US, ordered for drainage by IR today -C/w abx above. -No malignant cells on cytology, no cultures were sent -Surgery was consulted, recommended IR drainage that was done on 10/27, ordered US on 10/30 for persistent fevers that showed persistent collection, so ordered more IR drainage today -To discuss potential colonoscopy with surgery per ID recommendation -ID ordered E.histolytica Ab. If negative and cultures negative, will consider Echinococcus though without classic hydatid cystic character on imaging. -placed microbiology cultures and fungal cultures for abscess fluid 3. Klebsiella bacteremia. 1/2 sets of Blood cultures was positive. -Discontinue zosyn, Klebs covered by cipro. Day 5 of abx -F/u daily CBC, BCx 4. Pruritic rash: c/f zosyn allergy as only new med - stop zosyn, replace with cipro/flagyl -bendaryl 25 Q6P for pruritus 5. Syncope. Likely 2/2 to septic shock. Unlikely neuro vs. cardiac etiology. -Telemetry -TTE w/ normal EF, no vegetations and grade 1 diastolic dysfunction -trop negative 6. Acute kidney injury2/2 preprenal in presence of dehydration and hypotension. Resolved. -s/p hydration -avoid nephrotoxic meds 7. DM type II. BS >300 -continue levemir. -ISS AC/HS -consistent carb diet AC/HS blood sugar checks 8. History of HTN: -holding meds given recent septic shock. Will resume when clinically appropriate 9. Metabolic encephalopathy likely 2/2 to sepsis. Resolved. 10. DVT px. Heparin SC. DISPOSITION: PCU with telemetry. PT/OT. VS,Fishbone, I+O VS, Fishbone, I+O Laboratory Tests 10/31/19 10:07 Vital Signs Date Time Temp Pulse Resp B/P (MAP) Pulse Ox O2 Delivery O2 Flow Rate FiO2 11/01/19 04:00 98.6 74 18 138/81 (100) 95 Room Air I&O- Last 24 Hours up to 6 AM 11/01/19 06:00 Intake Total 1470 ml Output Total 820 ml Balance 650 ml NEERAJ SMITH MD Nov 01, 2019 08:15
[2019-11-01] MEDS: metroNIDAZOLE 500 MG in IV 1 EA IV SCH ×2 (11:47→18:02)
[2019-11-01 12:00] VITALS: BP 129/80
--- NOTE | 2019-11-01 12:30 | IPNPDOC ---
Text Note Date of Service The patient was seen on 11/01/19. NOTE Patient feels well this morning. He had a low-grade fever last night but otherwise denies any abdominal discomfort. He is tolerating oral intake without any nausea or vomiting. Vital signs MAXIMUM TEMPERATURE is 100.3 at 12 midnight the current is 97.7 On exam, Patient feels well Lungs are clear to auscultation bilaterally with no wheezing Heart rate and rhythm are regular with no murmurs Abdomen is soft, nontender nondistended no discrete masses palpable on the right upper quadrant area Impression and plan Liver abscess Repeat ultrasound shows persistent mass/collection on the right upper quadrant area. I have spoken with Dr. Alvarado from interventional radiology. On her review of the images, she is not sure whether is enough liquid component to the mass for drainage and would like to wait until Monday to repeat the CT with contrast to evaluate for possible drainage that time. I have spoken with our hospitalist to have this arranged I have also spoken to him with regards to possibly doing a colonoscopy. It seems he had a bad experience with colonoscopy at the [facility] and has not made a decision whether he would want to have it done or not. VS,Fishbone, I+O VS, Fishbone, I+O Vital Signs Date Time Temp Pulse Resp B/P (MAP) Pulse Ox O2 Delivery O2 Flow Rate FiO2 11/01/19 08:00 97.7 74 16 126/78 (94) 96 Room Air I&O- Last 24 Hours up to 6 AM 11/01/19 06:00 Intake Total 1470 ml Output Total 820 ml Balance 650 ml JOSELINE ULLOA MD Nov 01, 2019 12:30
[2019-11-01 16:00] VITALS: BP 142/76
[2019-11-01] MEDS: diphenhydrAMINE 25MG CAP PO PRN (16:54)
--- NOTE | 2019-11-01 18:46 | IPN ---
DATE: 11/01/2019 INFECTIOUS DISEASE PROGRESS NOTE Mr. Jha seems to be doing well. He had a maximum temperature (T max) of 100.3 yesterday. This morning he woke up, he had a diffuse pruritic rash, mostly on the arms and chest. He received some moisturizer and Benadryl with marked improvement of his symptoms. He was switched from IV Zosyn to Cipro and Flagyl, and he feels better. The patient had an abdominal ultrasound yesterday, which showed a large collection measuring 8.6 x 7.4 x 7 cm corresponding to the hypodense lesion on recent CT with mild gallbladder wall thickening measuring 3.99 mm, and pericholecystic fluid and some gallbladder sludge. Neoplastic process is not excluded. LABORATORY DATA: Bilirubin 0.6, AST 57, ALT 66, alkaline phosphatase 437, CRP 13.2, total protein 5.5, albumin 1.8. Procalcitonin 15.3. PHYSICAL EXAM: Temperature is 98.4, pulse 77, respirations 17, blood pressure 129/80, oxygen saturation (O2 sat) 97% on room air. Heart: Normal, S1, S2. No murmurs, rubs or gallops. Lungs are clear. No wheezes, rales or rhonchi. Abdomen: Soft, nontender. No hepatosplenomegaly. Back: No costovertebral angle (CVA) or lumbosacral tenderness. Extremities: No clubbing, cyanosis or edema. No calf tenderness. Skin: With a faint maculopapular rash noticed on upper extremities, blanching. IMPRESSION: 1. Liver abscess with Klebsiella oxytoca bacteremia, most likely from bacteremia secondary to abscess. The patient has been switched from IV Zosyn to Cipro and Flagyl, which was appropriate coverage for liver abscess. 2. Diffuse maculopapular rash, most likely related to Zosyn allergy, which has improved after Benadryl. 3. Insulin-dependent diabetes. Glucose is ranging between 180 and 340, currently on insulin. 4. Ultrasound has been reviewed by Dr. Alvarado who feels that she would like a CT abdomen and pelvis done next week on Monday before she puts the drain in place. The abscess seems to have enlarged. There is concern for sludge and possible malignancy. Would add alpha fetoprotein to blood work, as well as iron and TIBC workup. Agree with IV ciprofloxacin and Flagyl. The patient will need a minimum of 6 weeks of antibiotics. Case discussed with Dr. Bautista.
[2019-11-01 20:00] VITALS: BP 130/80
[2019-11-02] VITALS: BP 138/84
[2019-11-02] MEDS: diphenhydrAMINE 25MG CAP PO PRN ×3 (02:31→21:32)
[2019-11-02] MEDS: metroNIDAZOLE 500 MG in IV 1 EA IV SCH ×3 (02:31→18:21)
[2019-11-02 04:00] VITALS: BP 160/82
[2019-11-02] MEDS: SLF 3 ML SYR IV SCH ×3 (05:37→21:24)
[2019-11-02] MEDS: HEPARIN SOD (PORCINE) 5000UNITS/ML VIAL (J1644 PER 1000UNITS) SQ SCH ×3 (05:37→21:22)
[2019-11-02 05:39] LABS: HEMATOCRIT 30.9 % (42.0-52.0); HEMOGLOBIN 10.4 g/dl (13.5-17.5); MEAN CORPUSCULAR HEMOGLOBIN 29.5 pg (27.0-33.0); MEAN CORPUSCULAR HGB CONC 33.7 g/dl (32.0-36.5); MEAN CORPUSCULAR VOLUME 87.8 fl (80.0-96.0); PLATELET COUNT, AUTOMATED 119 10^3/uL (150-450); RED BLOOD COUNT 3.52 10^6/uL (4.30-6.10); WHITE BLOOD COUNT 19.5 10^3/uL (4.0-10.0)
[2019-11-02 06:16] LABS: ALT/SGPT 69 U/L (12-78); BILIRUBIN,DIRECT 0.2 MG/DL (0.0-0.2); BILIRUBIN,TOTAL 0.4 MG/DL (0.2-1.0); BLOOD UREA NITROGEN 16 MG/DL (7-18); CALCIUM LEVEL 7.3 MG/DL (8.8-10.2); CARBON DIOXIDE LEVEL 23 MEQ/L (21-32); CHLORIDE LEVEL 110 MEQ/L (98-107); CREATININE FOR GFR 0.81 MG/DL (0.70-1.30); GLOMERULAR FILTRATION RATE > 60.0 (>49); GLUCOSE, FASTING 49 MG/DL (70-100); POTASSIUM SERUM 2.9 MEQ/L (3.5-5.1); SODIUM LEVEL 144 MEQ/L (136-145); TOTAL PROTEIN 5.3 GM/DL (6.4-8.2)
[2019-11-02 08:00] VITALS: BP 142/87
[2019-11-02] MEDS: PANTOPRAZOLE 40MG VIAL (C9113 PER 1) IV SCH (08:07)
[2019-11-02] MEDS: HumaLOG INSULIN (NovoLOG) PER UNIT SC SCH ×4 (08:08→21:00)
[2019-11-02] MEDS: LEVEMIR (INSULIN DETEMIR) 1 UNITS/0.01ML SC SCH ×2 (08:08→21:22)
[2019-11-02] MEDS ORDERED: POTASSIUM CHLORIDE 10 MEQ SR TABLET PO ONE ×3 (08:15→16:00)
[2019-11-02] MEDS: CIPROFLOXACIN 400 MG in IV 1 EA IV SCH ×2 (09:55→21:23)
--- NOTE | 2019-11-02 13:47 | IPNPDOC ---
Text Note Date of Service The patient was seen on 11/02/19. NOTE SUBJECTIVE: -Afebrile over the past 24h -Improvement in diffuse pruritic rash -had liver US that noted large collection --> Dr. Callahan recommended drainage --> IR recommended waiting until Monday and repeating CT with contrast before drainage for confirmation of adequate collection PHYSICAL EXAMINATION: VITALS: HDS, afebrile GENERAL: No acute distress, resting comfortably, sitting up, requesting something to eat EYES: PERRLA, EOMI HENT, MOUTH: Normocephalic, atraumatic, MMM NECK: SUPPLE, no JVD, no noted adenopathy CV: Regular rate and rhythm, S1S2 normal, no murmurs/rubs/gallops RESPIRATORY: Clear to auscultation bilaterally, no rales/rhonchi/wheezes GI: Normoactive bowel sounds, soft, nontender, nondistended, no rebound or guarding, no organomegaly EXT: Normal ROM. No cyanosis, clubbing, swelling, joint deformity, extremity edema INTEGUMENTARY: Intact, continues to have scattered erythematous pruritic rash spreading to peripheries from trunk and back NEUROLOGIC: Cranial Nerves II-XII are intact, no focal deficits PSYCHIATRIC: Mood and affect are normal CURRENT MEDICATIONS: Please see below LABORATORY DATA: WBC now 19.5, hgb 10.4, platelets 119, K 2.9, Cr 0.81 Unfortunately there was no micro ordered on the liver abscess fluid drained on 10/27 10/27 BCx 1/2 grew Klebs, subsequent blood cultures have been negative MRSA negative Admission 10/27 CT abd/pelvis: 1. Multiloculated irregular hypodense lesion in the right hepatic lobe. Suspicious for abscess with history of fever. Differential diagnosis also includes malignancy. 2. Thickened left adrenal gland. Mildly increased from prior. If patient has no cancer history, consider follow-up adrenal CT or resection. If patient has a history of cancer, consider biopsy or PET/CT for patients with cancer history. (Celestino Dunlap, ACR White Paper, 2017) 3. Mild nodularity of the right adrenal gland. No change from prior. 4. Diffuse interlobular septal thickening. Suspect mild pulmonary edema. 5. Benign-appearing cyst in the upper pole of left kidney. No follow-up is necessary. 6. Additional findings as described. 10/27 CXR: Right infrahilar atelectasis/early infiltrate cannot be excluded. No obvious effusion. Abd US on 10/30: Heterogeneous hypoechoic focus at the right hepatic lobe measuring 7.4 x 7.0 x 8.6 centimetres. Right kidney is without hydronephrosis. Gallbladder wall thickening measuring 3.9 mm. Trace pericholecystic fluid. Probable sludge ball within the gallbladder measuring up to 2.4 centimetres. Common bile duct measures normal caliber. IMPRESSION: 1. Heterogeneous hypoechoic focus at the right hepatic lobe measuring 7.4 x 7.0 x 8.6 centimetres corresponding to hypodense lesion on recent CT examination. 2. Mild gallbladder wall thickening measuring 3.9 mm with minimal pericholecystic fluid. 3. Probable sludge ball within the gallbladder measuring up to 2.4 cm, neoplastic process is not excluded and follow-up is recommended. ASSESSMENT: 64 y/o M admitted with septic shock with ongoing CAP and right liver abscess vs. mass with septic shock now resolved with course c/b persistent fevers with imaging showing persistent worsening abscess despite drainage on 10/27. PLAN: 1. Septic shock 2/2 CAP, Klebs bacteremia without clear sources though he also had liver abscess that was drained, unfortunately without cultures sent: Septic shock resolved however with persistent fevers. -Discontinued pip/tazo on 10/31 due to new pruritic rash, now on cipro/flagyl with worsening leukocytosis -1 of 2 blood cultures from 10/27 grew Klebs. All subsequent have been NGTD -Telemetry -ID consulted, appreciate recs, recommending further drainage and consideration of colonoscopy pre-discharge [facility] Dr. Callahan speak with patient who is apprehensive about a colonoscopy due to negative prior experiences. 2. Liver abscess -s/p US guided drainage on 10/27. Showing persistent collection on 10/30 US, IR recommended drainage to wait until 11/[address] A/P with contrast. Currently on cipro/flagyl with worsening leukocytosis. -C/w abx above. -No malignant cells on cytology, no cultures were sent -Surgery was consulted, recommended IR drainage that was done on 10/27, ordered US on 10/30 for persistent fevers that showed persistent collection, so ordered more IR drainage -Surgery also working on potential colonoscopy though patient apprehensive due to prior experiences -f/u E.histolytica Ab -placed microbiology cultures and fungal cultures for abscess fluid when he gets drained 3. Klebsiella bacteremia. 1/2 sets of Blood cultures was positive. -Day 6 of abx, was on zosyn for 5d that was dc'd to development of a pruritic rash -F/u daily CBC, BCx 4. Pruritic rash: c/f zosyn allergy as only new med - Dc'd zosyn, replaced with cipro/flagyl -benadryl 25 Q6P for pruritus 5. Syncope. Likely 2/2 to septic shock. Unlikely neuro vs. cardiac etiology. -Telemetry -TTE w/ normal EF, no vegetations and grade 1 diastolic dysfunction -trop negative 6. Acute kidney injury2/2 preprenal in presence of dehydration and hypotension. Resolved. -s/p hydration -avoid nephrotoxic meds 7. DM type II. BS >300 -continue levemir. -ISS AC/HS -consistent carb diet AC/HS blood sugar checks 8. History of HTN: -holding meds given recent septic shock. Will resume when clinically appropriate 9. Metabolic encephalopathy likely 2/2 to sepsis. Resolved. 10. DVT px. Heparin SC. DISPOSITION: Medsurg, with plan to CT A/P and abscess drainage on Monday, meanwhile continuing cipro/flagyl. PT/OT. VS,Fishbone, I+O VS, Fishbone, I+O Laboratory Tests 11/02/19 04:52 Vital Signs Date Time Temp Pulse Resp B/P (MAP) Pulse Ox O2 Delivery O2 Flow Rate FiO2 11/02/19 04:00 98.0 85 18 160/82 (108) 98 Room Air I&O- Last 24 Hours up to 6 AM 11/02/19 05:59 Intake Total 1530 ml Output Total 700 ml Balance 830 ml NEERAJ SMITH MD Nov 02, 2019 08:13
[2019-11-02 14:48] LABS: BLOOD UREA NITROGEN 12 MG/DL (7-18); CALCIUM LEVEL 7.3 MG/DL (8.8-10.2); CARBON DIOXIDE LEVEL 21 MEQ/L (21-32); CHLORIDE LEVEL 113 MEQ/L (98-107); CREATININE FOR GFR 0.66 MG/DL (0.70-1.30); GLOMERULAR FILTRATION RATE > 60.0 (>49); GLUCOSE, FASTING 114 MG/DL (70-100); POTASSIUM SERUM 3.2 MEQ/L (3.5-5.1); SODIUM LEVEL 143 MEQ/L (136-145)
[2019-11-02 16:00] VITALS: BP 148/85
[2019-11-02 20:00] VITALS: BP 153/90
[2019-11-02] MEDS ORDERED: LEVEMIR (INSULIN DETEMIR) 1 UNITS/0.01ML SC SCH (21:00)
[2019-11-03] MEDS: metroNIDAZOLE 500 MG in IV 1 EA IV SCH ×3 (03:35→18:21)
[2019-11-03] MEDS: diphenhydrAMINE 25MG CAP PO PRN ×4 (03:35→23:39)
[2019-11-03 04:00] VITALS: BP 149/84
[2019-11-03 05:04] LABS: HEMATOCRIT 31.1 % (42.0-52.0); HEMOGLOBIN 10.7 g/dl (13.5-17.5); MEAN CORPUSCULAR HEMOGLOBIN 30.5 pg (27.0-33.0); MEAN CORPUSCULAR HGB CONC 34.4 g/dl (32.0-36.5); MEAN CORPUSCULAR VOLUME 88.6 fl (80.0-96.0); PLATELET COUNT, AUTOMATED 119 10^3/uL (150-450); RED BLOOD COUNT 3.51 10^6/uL (4.30-6.10); WHITE BLOOD COUNT 16.8 10^3/uL (4.0-10.0)
[2019-11-03] MEDS: SLF 3 ML SYR IV SCH ×3 (05:22→22:16)
[2019-11-03] MEDS: HEPARIN SOD (PORCINE) 5000UNITS/ML VIAL (J1644 PER 1000UNITS) SQ SCH ×3 (05:22→22:16)
[2019-11-03 05:28] LABS: ALT/SGPT 66 U/L (12-78); BILIRUBIN,DIRECT 0.2 MG/DL (0.0-0.2); BILIRUBIN,TOTAL 0.3 MG/DL (0.2-1.0); BLOOD UREA NITROGEN 13 MG/DL (7-18); CALCIUM LEVEL 7.4 MG/DL (8.8-10.2); CARBON DIOXIDE LEVEL 26 MEQ/L (21-32); CHLORIDE LEVEL 109 MEQ/L (98-107); CREATININE FOR GFR 0.74 MG/DL (0.70-1.30); GLOMERULAR FILTRATION RATE > 60.0 (>49); GLUCOSE, FASTING 49 MG/DL (70-100); POTASSIUM SERUM 3.4 MEQ/L (3.5-5.1); SODIUM LEVEL 141 MEQ/L (136-145); TOTAL PROTEIN 5.4 GM/DL (6.4-8.2)
[2019-11-03 05:40] VITALS: BP 131/78
[2019-11-03] MEDS: HumaLOG INSULIN (NovoLOG) PER UNIT SC SCH ×4 (07:15→21:00)
[2019-11-03] MEDS ORDERED: POTASSIUM CHLORIDE 10 MEQ SR TABLET PO ONE (09:00)
[2019-11-03] MEDS: PANTOPRAZOLE 40MG TAB (PROTONIX) PO SCH (09:15)
[2019-11-03] MEDS: CIPROFLOXACIN 400 MG in IV 1 EA IV SCH ×2 (09:15→22:16)
--- NOTE | 2019-11-03 11:55 | IPNPDOC ---
Text Note Date of Service The patient was seen on 11/03/19. NOTE SUBJECTIVE: -Afebrile and hemodynamically stable -Improvement in diffuse pruritic rash -Hypoglycemia noted, reduced insulin regimen from home 40qAM and 80qPM long acting and dc'd AM dose and reduced PM dose to 60. PHYSICAL EXAMINATION: VITALS: HDS, afebrile GENERAL: No acute distress EYES: PERRLA, EOMI HENT, MOUTH: Normocephalic, atraumatic, MMM NECK: SUPPLE, no JVD, no noted adenopathy CV: Regular rate and rhythm, S1S2 normal, no murmurs/rubs/gallops RESPIRATORY: Clear to auscultation bilaterally, no rales/rhonchi/wheezes GI: Normoactive bowel sounds, soft, nontender, nondistended, no rebound or guarding, no organomegaly EXT: Normal ROM. No cyanosis, clubbing, swelling, joint deformity, extremity edema SKIN: Intact, continues to have scattered erythematous pruritic rash NEUROLOGIC: Cranial Nerves II-XII are intact, no focal deficits PSYCHIATRIC: Mood and affect are normal CURRENT MEDICATIONS: Please see below LABORATORY DATA: WBC 16.8 Hgb 10.7 platelets 119 na 141 K 3.4 (repleted) Cr 0.74 AST 54 ALT 66 Alk phos 485 Unfortunately there was no micro ordered on the liver abscess fluid drained on 10/27 10/27 BCx 1/2 grew Klebs, subsequent blood cultures have been negative 10/29 BCx now growing GNRs as well MRSA negative -Pending E.histolytics serology Admission 10/27 CT abd/pelvis: 1. Multiloculated irregular hypodense lesion in the right hepatic lobe. Suspicious for abscess with history of fever. Differential diagnosis also includes malignancy. 2. Thickened left adrenal gland. Mildly increased from prior. If patient has no cancer history, consider follow-up adrenal CT or resection. If patient has a history of cancer, consider biopsy or PET/CT for patients with cancer history. (Celestino Dunlap, ACR White Paper, 2017) 3. Mild nodularity of the right adrenal gland. No change from prior. 4. Diffuse interlobular septal thickening. Suspect mild pulmonary edema. 5. Benign-appearing cyst in the upper pole of left kidney. No follow-up is necessary. 6. Additional findings as described. 10/27 CXR: Right infrahilar atelectasis/early infiltrate cannot be excluded. No obvious effusion. Abd US on 10/30: Heterogeneous hypoechoic focus at the right hepatic lobe measuring 7.4 x 7.0 x 8.6 centimetres. Right kidney is without hydronephrosis. Gallbladder wall thickening measuring 3.9 mm. Trace pericholecystic fluid. Probable sludge ball within the gallbladder measuring up to 2.4 centimetres. Common bile duct measures normal caliber. IMPRESSION: 1. Heterogeneous hypoechoic focus at the right hepatic lobe measuring 7.4 x 7.0 x 8.6 centimetres corresponding to hypodense lesion on recent CT examination. 2. Mild gallbladder wall thickening measuring 3.9 mm with minimal pericholecystic fluid. 3. Probable sludge ball within the gallbladder measuring up to 2.4 cm, neoplastic process is not excluded and follow-up is recommended. ASSESSMENT: 64 y/o M admitted with septic shock with ongoing CAP and right liver abscess vs. mass with septic shock now resolved with course c/b persistent fevers with imaging showing persistent worsening abscess despite drainage on 10/27. PLAN: 1. Septic shock 2/2 CAP, Klebs bacteremia without clear sources though he also had liver abscess that was drained, unfortunately without cultures sent: Septic shock resolved however with persistent fevers. -Discontinued pip/tazo on 10/31 due to new pruritic rash, now on cipro/flagyl -1 of 2 blood cultures from 10/27 grew Klebs. 10/29 BCx now growing GNRs as well, likely persistent Klebs. Will draw new BCx today to investigate clearance of bacteremia -Telemetry -ID consulted, appreciate recs, recommending further drainage due on 11/03 by IR, and consideration of colonoscopy pre-discharge with Dr. Callahan speak with patient who is apprehensive about a colonoscopy due to negative prior experiences. 2. Liver abscess -s/p US guided drainage on 10/27. Showing persistent collection on 10/30 US, IR recommended drainage to wait until 11/[address] A/P with contrast. Currently on cipro/flagyl with worsening leukocytosis. -C/w abx above. -No malignant cells on cytology, no cultures were sent -Surgery was consulted, recommended IR drainage that was done on 10/27, ordered US on 10/30 for persistent fevers that showed persistent collection, so ordered more IR drainage -Surgery also working on potential colonoscopy though patient apprehensive due to prior experiences -f/u E.histolytica Ab -placed microbiology cultures and fungal cultures for abscess fluid when he gets drained -Draw new BCx today for persistent bacteremia per 10/29 BCx -ordered CT with contrast for 11/03 AM per IR 3. Klebsiella bacteremia. 1/2 sets of Blood cultures was positive. -Day 7 of abx, was on zosyn for 5d that was dc'd to development of a pruritic rash. Continue cipro/flagyl -F/u daily CBC, BCx 4. Pruritic rash: c/f zosyn allergy as only new med - Dc'd zosyn, replaced with cipro/flagyl -benadryl 25 Q6P for pruritus 5. Syncope. Likely 2/2 to septic shock. Unlikely neuro vs. cardiac etiology. -Telemetry -TTE w/ normal EF, no vegetations and grade 1 diastolic dysfunction -trop negative 6. Acute kidney injury2/2 preprenal in presence of dehydration and hypotension. Resolved. -s/p hydration -avoid nephrotoxic meds 7. DM type II. BS >300 -continue levemir. -ISS AC/HS -consistent carb diet AC/HS blood sugar checks 8. History of HTN: -holding meds given recent septic shock. Will resume when clinically appropriate 9. Metabolic encephalopathy likely 2/2 to sepsis. Resolved. 10. DVT px. Heparin SC. DISPOSITION: Medsurg, with plan to CT A/P and abscess drainage on Monday, meanwhile continuing cipro/flagyl. PT/OT. VS,Gianlucabone, I+O VS, Gianlucabone, I+O Laboratory Tests 11/02/19 13:50 11/03/19 04:29 Vital Signs Date Time Temp Pulse Resp B/P (MAP) Pulse Ox O2 Delivery O2 Flow Rate FiO2 11/03/19 05:40 97.0 72 18 131/78 (95) 99 Room Air I&O- Last 24 Hours up to 6 AM 11/03/19 06:00 Intake Total 2150 ml Output Total 1360 ml Balance 790 ml NEERAJ SMITH MD Nov 03, 2019 08:12
[2019-11-03 14:00] VITALS: BP 130/70
[2019-11-03 22:00] VITALS: BP 137/82
[2019-11-03] MEDS: LEVEMIR (INSULIN DETEMIR) 1 UNITS/0.01ML SC SCH (22:16)
[2019-11-04] MEDS: metroNIDAZOLE 500 MG in IV 1 EA IV SCH ×3 (03:22→18:49)
[2019-11-04] MEDS: DEXTROSE 50% 50 ML SYRINGE IV PRN ×5 (04:47→13:47)
[2019-11-04 05:53] LABS: HEMATOCRIT 31.1 % (42.0-52.0); HEMOGLOBIN 10.7 g/dl (13.5-17.5); MEAN CORPUSCULAR HEMOGLOBIN 30.2 pg (27.0-33.0); MEAN CORPUSCULAR HGB CONC 34.4 g/dl (32.0-36.5); MEAN CORPUSCULAR VOLUME 87.9 fl (80.0-96.0); PLATELET COUNT, AUTOMATED 121 10^3/uL (150-450); RED BLOOD COUNT 3.54 10^6/uL (4.30-6.10); WHITE BLOOD COUNT 15.3 10^3/uL (4.0-10.0)
[2019-11-04 06:00] VITALS: BP 136/82
[2019-11-04] MEDS: HEPARIN SOD (PORCINE) 5000UNITS/ML VIAL (J1644 PER 1000UNITS) SQ SCH ×3 (06:13→22:03)
[2019-11-04] MEDS: SLF 3 ML SYR IV SCH ×3 (06:14→22:04)
[2019-11-04 06:21] LABS: ALT/SGPT 61 U/L (12-78); BILIRUBIN,DIRECT 0.2 MG/DL (0.0-0.2); BILIRUBIN,TOTAL 0.6 MG/DL (0.2-1.0); BLOOD UREA NITROGEN 12 MG/DL (7-18); CALCIUM LEVEL 7.7 MG/DL (8.8-10.2); CARBON DIOXIDE LEVEL 26 MEQ/L (21-32); CHLORIDE LEVEL 107 MEQ/L (98-107); CREATININE FOR GFR 0.72 MG/DL (0.70-1.30); GLOMERULAR FILTRATION RATE > 60.0 (>49); GLUCOSE, FASTING 64 MG/DL (70-100); POTASSIUM SERUM 3.3 MEQ/L (3.5-5.1); SODIUM LEVEL 139 MEQ/L (136-145); TOTAL PROTEIN 5.3 GM/DL (6.4-8.2)
[2019-11-04] MEDS: HumaLOG INSULIN (NovoLOG) PER UNIT SC SCH ×4 (07:30→22:05)
[2019-11-04] MEDS ORDERED: ISOVUE-370 76% 100ML VIAL As Ordered ONE (07:46)
--- NOTE | 2019-11-04 08:28 | REP ---
Clinical: History of liver abscess. Technique: Axial contrast enhanced images from the lung bases to the pubic symphysis using 100 ml Isovue 370 intravenous contrast material with coronal and sagittal re-formations. Delayed images of the abdomen obtained. Comparison: 10/28/2019. Findings: A multiloculated complex area with in the posterior segment right hepatic lobe is again identified measuring roughly 7.5 cm maximal diameter with multiple internal fluid-filled/cystic components which are relatively similar to prior examination. The remainder of the liver appears normal and no significant perihepatic inflammatory stranding or obvious periportal adenopathy is appreciated. Spleen, pancreas, gallbladder, bilateral adrenal glands and kidneys are stable and essentially normal. 1 cm left renal cyst again noted and unchanged. The enteric system demonstrates moderate fecal stasis along with diffuse colonic diverticulosis, but no evidence for bowel obstruction or obvious acute inflammatory process. Pelvis demonstrates normal bladder and age appropriate prostate/seminal vesicles. No ascites. No free air. No obvious adenopathy. Abdominal aorta and vasculature demonstrate atherosclerotic changes without aneurysm or dissection. Surrounding musculoskeletal structures demonstrate age-related changes without focal abnormality. Lung bases demonstrate minimal posterior basilar dependent changes and trace atelectasis. Impression: 1. No significant change in the multiloculated/multicystic liver lesion within the posterior right hepatic segment. No associated perihepatic inflammatory stranding, adenopathy, or ascites. 2. Colonic diverticulosis without acute diverticulitis. Electronically Signed by Javier Chavez MD 11/04/2019 08:19 A
[2019-11-04] MEDS: PANTOPRAZOLE 40MG TAB (PROTONIX) PO SCH (09:00)
[2019-11-04] MEDS ORDERED: POTASSIUM CHLORIDE 10 MEQ SR TABLET PO ONE (09:00)
[2019-11-04] MEDS: CIPROFLOXACIN 400 MG in IV 1 EA IV SCH ×2 (10:15→22:04)
[2019-11-04] MEDS ORDERED: D5W/0.45% SODIUM CHLORIDE 1,000 ML IV SCH (10:15)
[2019-11-04 10:48] LABS: HEPATITIS B SURFACE ANTIGEN NEGATIVE (NEGATIVE)
[2019-11-04 11:16] LABS: HEPATITIS C VIRUS ABY INDEX 0.3 INDEX (<0.8)
[2019-11-04 11:17] LABS: HIV 1&2 SCREEN CENTAUR NEGATIVE (NEGATIVE)
[2019-11-04 14:00] VITALS: BP 111/58
[2019-11-04] MEDS ORDERED: LIDOCAINE 1% MDV 20ML VIAL As Ordered ONE ×2 (14:25→15:35)
[2019-11-04] MEDS ORDERED: fentaNYL 100 MCG/2 ML INJECTION (J3010) As Ordered ONE (15:06)
[2019-11-04] MEDS ORDERED: diphenhydrAMINE 50MG/ML VIAL (J1200) As Ordered ONE (15:06)
[2019-11-04] MEDS ORDERED: MIDAZOLAM INJ 2MG/2ML VIAL (J2250 PER 1MG) As Ordered ONE (15:06)
--- NOTE | 2019-11-04 15:37 | IRMSE ---
[facility] IR Moderate Sedation Eval. Date and Time Date: Nov 04, 2019 Time: 15:37 ASA Classification ASA Classification: III-Severe systemic dis. Mallampati Score: II NPO: Yes Obstructive Sleep Apnea: No Interval Plan: moderate sedation GERMAN JEREZ MD Nov 04, 2019 15:37
--- NOTE | 2019-11-04 16:42 | POST-OPPD ---
Postoperative Procedure Note Date Of Procedure: Nov 04, 2019 Time Of Procedure: 16:41 PREOPERATIVE DIAGNOSIS: liver abscess POSTOPERATIVE DIAGNOSIS: same FINDINGS: same PROCEDURE: 12 F drain placed. bloody milky specimen obtained. SURGEON: evelio ANESTHESIA: mod sed SPECIMENS: sent ESTIMATED BLOOD LOSS: < 5 ml COMPLICATIONS: None POSTOPERATIVE CONDITION: stable GERMAN JEREZ MD Nov 04, 2019 16:42
[2019-11-04] MEDS ORDERED: ACETAMINOPHEN 325 MG TAB As Ordered ONE (16:53)
[2019-11-04] MEDS: ACETAMINOPHEN TAB 650MG DOSE (2X325MG) PO PRN ×2 (17:01→18:49)
--- NOTE | 2019-11-04 17:04 | IPNPDOC ---
Text Note Date of Service The patient was seen on 11/04/19. NOTE SUBJECTIVE: -Afebrile and hemodynamically stable -continues to have pruritic rash and will now get PO and topical benadryl -Had asymptomatic hypoglycemia today despite reducing his home long acting yesterday, down to 30s --> so stopped the levemir, kept the SSI and placed him on d101/2NS while NPO for IR liver abscess drainage -His spirits are low today, he is tired of being in the hospital -Now on 2L NC PHYSICAL EXAMINATION: VITALS: HDS, afebrile GENERAL: No acute distress EYES: PERRLA, EOMI HENT, MOUTH: Normocephalic, atraumatic, MMM NECK: SUPPLE, no JVD, no noted adenopathy CV: Regular rate and rhythm, S1S2 normal, no murmurs/rubs/gallops RESPIRATORY: Clear to auscultation bilaterally, no rales/rhonchi/wheezes, on 2L saturating well, not sure if it is for comfort vs. true hypoxemia GI: Normoactive bowel sounds, soft, nontender, nondistended, no rebound or g uarding, no organomegaly EXT: Normal ROM. No cyanosis, clubbing, swelling, joint deformity, extremity edema SKIN: Intact, continues to have scattered erythematous pruritic rash NEUROLOGIC: Cranial Nerves II-XII are intact, no focal deficits PSYCHIATRIC: Mood and affect are normal CURRENT MEDICATIONS: Please see below LABORATORY DATA: WBC 15.3 Hgb 10.7 platelets 121 na 139 K 3.3 (repleted) Cr 0.72 Unfortunately there was no micro ordered on the liver abscess fluid drained on 10/27 10/27 BCx 05/23 grew Klebs, subsequent blood cultures have been negative 10/29 BCx grew Klebs 11/02 BCx NGTD MRSA negative -Pending E.histolytics serology Admission 10/27 CT abd/pelvis: 1. Multiloculated irregular hypodense lesion in the right hepatic lobe. Suspicious for abscess with history of fever. Differential diagnosis also includes malignancy. 2. Thickened left adrenal gland. Mildly increased from prior. If patient has no cancer history, consider follow-up adrenal CT or resection. If patient has a history of cancer, consider biopsy or PET/CT for patients with cancer history. (Celestino Dunlap, ACR White Paper, 2017) 3. Mild nodularity of the right adrenal gland. No change from prior. 4. Diffuse interlobular septal thickening. Suspect mild pulmonary edema. 5. Benign-appearing cyst in the upper pole of left kidney. No follow-up is necessary. 6. Additional findings as described. 10/27 CXR: Right infrahilar atelectasis/early infiltrate cannot be excluded. No obvious effusion. Abd US on 10/30: Heterogeneous hypoechoic focus at the right hepatic lobe measuring 7.4 x 7.0 x 8.6 centimetres. Right kidney is without hydronephrosis. Gallbladder wall thickening measuring 3.9 mm. Trace pericholecystic fluid. Probable sludge ball within the gallbladder measuring up to 2.4 centimetres. Common bile duct measures normal caliber. IMPRESSION: 1. Heterogeneous hypoechoic focus at the right hepatic lobe measuring 7.4 x 7.0 x 8.6 centimetres corresponding to hypodense lesion on recent CT examination. 2. Mild gallbladder wall thickening measuring 3.9 mm with minimal pericholecystic fluid. 3. Probable sludge ball within the gallbladder measuring up to 2.4 cm, neoplastic process is not excluded and follow-up is recommended. 11/03 CT A/P: A multiloculated complex area with in the posterior segment right hepatic lobe is again identified measuring roughly 7.5 cm maximal diameter with multiple internal fluid-filled/cystic components which are relatively similar to prior examinat ion. The remainder of the liver appears normal and no significant perihepatic inflammatory stranding or obvious periportal adenopathy is appreciated. Spleen, pancreas, gallbladder, bilateral adrenal glands and kidneys are stable and essentially normal. 1 cm left renal cyst again noted and unchanged. The enteric system demonstrates moderate fecal stasis along with diffuse colonic diverticulosis, but no evidence for bowel obstruction or obvious acute inflammatory process. Pelvis demonstrates normal bladder and age appropriate prostate/seminal vesicles. No ascites. No free air. No obvious adenopathy. Abdominal aorta and vasculature demonstrate atherosclerotic changes without aneurysm or dissection. Surrounding musculoskeletal structures demonstrate age-related changes without focal abnormality. Lung bases demonstrate minimal posterior basilar dependent changes and trace atelectasis. Impression: 1. No significant change in the multiloculated/multicystic liver lesion within the posterior right hepatic segment. No associated perihepatic inflammatory stranding, adenopathy, or ascites. 2. Colonic diverticulosis without acute diverticulitis. ASSESSMENT: 64 y/o M admitted with septic shock with ongoing CAP and right liver abscess vs. mass with septic shock now resolved with course c/b persistent fevers with imaging showing persistent abscess despite drainage on 10/27 now s/p drain on 11/03. PLAN: 1. Septic shock 2/2 CAP, Klebs bacteremia without clear sources though he also had liver abscess that was drained, unfortunately without cultures sent: Septic shock resolved however with persistent fevers. -Discontinued pip/tazo on 10/31 due to new pruritic rash, now on cipro/flagyl, to continue -10/27 and 10/29 BCx grew Klebs. 11/02 BCx NGTD -Telemetry -ID consulted, appreciate recs, recommending further drainage due on 11/03 by IR, and consideration of colonoscopy pre-discharge. Dr. Callahan spoke with patient who is apprehensive about a colonoscopy due to negative prior experiences and would like time to think about it. 2. Liver abscess -s/p US guided drainage on 10/27. Thereafter had a persistent collection on 10/30 US and 11/03 CT A/P, IR drained it again today 11/03 and placed a drain. -f/u 11/03 abscess fluid cultures -continue cipro/flagyl -No malignant cells on cytology, no cultures were sent -Surgery was consulted, recommended IR drainage, spoke with the patient about colonoscopy though patient apprehensive due to prior experiences -f/u E.histolytica Ab -f/u 11/02 BCx 3. Klebsiella bacteremia. 1/2 sets of Blood cultures was positive. -Day 8 of abx, was on zosyn for 5d that was dc'd 2/2 development of a pruritic rash. Continue cipro/flagyl, day 3 -F/u daily CBC, BCx 4. Pruritic rash: c/f zosyn allergy as only new med - Dc'd zosyn, replaced with cipro/flagyl -benadryl 25 Q6P for pruritus, and topical benadryl 5. Syncope. Likely 2/2 to septic shock. Unlikely neuro vs. cardiac etiology. -Telemetry -TTE w/ normal EF, no vegetations and grade 1 diastolic dysfunction -trop negative 6. Acute kidney injury2/2 preprenal in presence of dehydration and hypotension. Resolved. -s/p hydration -avoid nephrotoxic meds 7. DM type II. BS >300 -discontinued levemir, had persistent hypoglycemia. to restart as indicated -ISS AC/HS -consistent carb diet AC/HS blood sugar checks 8. History of HTN: -Held meds given recent septic shock. Will resume when clinically appropriate 9. Metabolic encephalopathy likely 2/2 to sepsis. Resolved. 10. DVT px. Heparin SC. DISPOSITION: Medsurg, PT/OT. VS,Fishbone, I+O VS, Fishbone, I+O Laboratory Tests 11/04/19 05:36 Vital Signs Date Time Temp Pulse Resp B/P (MAP) Pulse Ox O2 Delivery O2 Flow Rate FiO2 11/04/19 16:20 2 16 100 Nasal Cannula 2 11/04/19 15:14 99.8 11/04/19 14:00 111/58 (75) I&O- Last 24 Hours up to 6 AM0 11/04/19 06:00 Intake Total 1840 ml Output Total 2650 ml Balance -810 ml NEERAJ SMITH MD Nov 04, 2019 17:04
[2019-11-04] MEDS: D10W IV SCH (17:42)
[2019-11-04] MEDS: SODIUM CHLORIDE IV SCH (17:42)
[2019-11-04 18:00] VITALS: BP 140/90
[2019-11-04] MEDS: diphenhydrAMINE CREAM 30GM TOP PRN ×2 (18:48→22:03)
[2019-11-04 22:00] VITALS: BP 129/81
[2019-11-05] MEDS: ACETAMINOPHEN TAB 650MG DOSE (2X325MG) PO PRN ×4 (02:18→21:25)
[2019-11-05] MEDS: metroNIDAZOLE 500 MG in IV 1 EA IV SCH ×2 (03:24→11:58)
[2019-11-05] MEDS: diphenhydrAMINE 25MG CAP PO PRN (05:25)
[2019-11-05] MEDS: HEPARIN SOD (PORCINE) 5000UNITS/ML VIAL (J1644 PER 1000UNITS) SQ SCH ×3 (05:25→21:24)
[2019-11-05] MEDS: SLF 3 ML SYR IV SCH ×3 (05:26→21:24)
[2019-11-05 06:00] VITALS: BP 120/78
[2019-11-05 06:21] LABS: HEMATOCRIT 31.7 % (42.0-52.0); HEMOGLOBIN 10.6 g/dl (13.5-17.5); MEAN CORPUSCULAR HEMOGLOBIN 29.8 pg (27.0-33.0); MEAN CORPUSCULAR HGB CONC 33.4 g/dl (32.0-36.5); PLATELET COUNT, AUTOMATED 128 10^3/uL (150-450); RED BLOOD COUNT 3.56 10^6/uL (4.30-6.10); WHITE BLOOD COUNT 21.5 10^3/uL (4.0-10.0)
[2019-11-05 06:46] LABS: ALT/SGPT 53 U/L (12-78); BILIRUBIN,TOTAL 0.4 MG/DL (0.2-1.0); BLOOD UREA NITROGEN 10 MG/DL (7-18); CALCIUM LEVEL 7.7 MG/DL (8.8-10.2); CARBON DIOXIDE LEVEL 26 MEQ/L (21-32); CHLORIDE LEVEL 103 MEQ/L (98-107); CREATININE FOR GFR 0.78 MG/DL (0.70-1.30); GLOMERULAR FILTRATION RATE > 60.0 (>49); GLUCOSE, FASTING 269 MG/DL (70-100); POTASSIUM SERUM 3.7 MEQ/L (3.5-5.1); SODIUM LEVEL 135 MEQ/L (136-145); TOTAL PROTEIN 5.7 GM/DL (6.4-8.2)
[2019-11-05] MEDS: D10W IV SCH (07:56)
[2019-11-05] MEDS: SODIUM CHLORIDE IV SCH (07:56)
[2019-11-05] MEDS: HumaLOG INSULIN (NovoLOG) PER UNIT SC SCH ×4 (08:09→21:23)
[2019-11-05] MEDS: PANTOPRAZOLE 40MG TAB (PROTONIX) PO SCH (08:09)
[2019-11-05] MEDS: diphenhydrAMINE CREAM 30GM TOP PRN ×2 (08:11→17:49)
[2019-11-05] MEDS: CIPROFLOXACIN 400 MG in IV 1 EA IV SCH (10:56)
[2019-11-05 13:52] VITALS: BP 117/77
--- NOTE | 2019-11-05 16:56 | IPNPDOC ---
Text Note Date of Service The patient was seen on 11/05/19. NOTE Subjective: No any acute events overnight. Patient stated that he feels much better today, he was able to participate with physical therapy activity. Objective: GENERAL: No acute distress EYES: PERRLA, EOMI HEENT: Normocephalic, atraumatic, MMM NECK: SUPPLE, no JVD, no noted adenopathy CV: Regular rate and rhythm, S1S2 normal, no murmurs/rubs/gallops RESPIRATORY: Clear to auscultation bilaterally GI: Normoactive bowel sounds, soft, nontender, nondistended, no rebound or guarding, no organomegaly EXT: Normal ROM. No cyanosis, clubbing, swelling, joint deformity, extremity edema SKIN: Intact, continues to have scattered erythematous pruritic rash NEUROLOGIC: Cranial Nerves II-XII are intact, no focal deficits PSYCHIATRIC: Mood and affect are normal ASSESSMENT: 64 y/o M admitted with septic shock with ongoing CAP and right liver abscess vs. mass with septic shock now resolved with course c/b persistent fevers with imaging showing persistent abscess despite drainage on 10/27 now s/p drain on 11/03. Severe sepsis Secondary to Klebsiella bacteremia Patient was found to have liver abscess which was drained and re drained Continue Cipro and Flagyl Dr. Callahan spoke with patient who is apprehensive about a colonoscopy due to negative prior experiences and would like time to think about it. Liver abscess -s/p US guided drainage on 10/27. Thereafter had a persistent collection on 10/30 US and 11/03 CT A/P, IR drained it again today 11/03 and placed a drain. -Pending 11/03 abscess fluid cultures -continue cipro/flagyl -No malignant cells on cytology, no cultures were sent -Surgery was consulted, recommended IR drainage, spoke with the patient about colonoscopy though patient apprehensive due to prior experiences -E.histolytica Ab negative -11/02 BCx negative Klebsiella bacteremia Blood culture no growth after 5 days Continue Cipro and Flagyl TTE w/ normal EF, no vegetations and grade 1 diastolic dysfunction Acute kidney injury Resolved Most likely prerenal secondary to sepsis Type 2 diabetes Patient had persistent hyperglycemia during hospital stay Will restart Levemir 10 units tomorrow Continue insulin sliding scale Diabetes diet Metabolic encephalopathy likely 2/2 to sepsis Resolved VS,Fishbone, I+O VS, Fishbone, I+O Laboratory Tests 11/05/19 05:58 Vital Signs Date Time Temp Pulse Resp B/P (MAP) Pulse Ox O2 Delivery O2 Flow Rate FiO2 11/05/19 13:52 99.3 93 16 117/77 (90) 95 Room Air 11/04/19 17:00 2 I&O- Last 24 Hours up to 6 AM 11/05/19 05:59 Intake Total 1775 ml Output Total 3095 ml Balance -1320 ml SANDRA WARD DO Nov 05, 2019 16:56
[2019-11-05] MEDS ORDERED: POTASSIUM CHLORIDE 10 MEQ SR TABLET PO ONE (17:00)
--- NOTE | 2019-11-05 17:32 | IPNPDOC ---
Text Note Date of Service The patient was seen on 11/05/19. NOTE Patient had CT guided drain placement of a right posterior lobe liver collect ion/abscess.He is doing well. He complains of discomfort through the right shoulder. Otherwise, afebrile. HD stable. Denies abdominal pain, nausea, vomiting or diarrhea. Vital signs MAXIMUM TEMPERATURE is 99.7, Tcurrent 99.3 On exam, Patient feels well, looks comfortable Lungs are clear to auscultation bilaterally with no wheezing Heart rate and rhythm are regular with no murmurs Abdomen is soft, nontender nondistended no discrete masses palpable on the right upper quadrant area. He has a right posterior/back drain which is mainly putting out bloody drainage. Impression and plan Liver abscess Patient underwent drain placement yesterday, awaiting culture results (expect it to be klebsiella) as well as drain character. I reviewed the CT that was done yesterday and it loops to have multiple septations which is not characteristic of an abscess. suggest sending for markers AFP, CEA. Still would not commit to colonoscopy. VS,Daniela, I+O VS, Daniela, I+O Laboratory Tests 11/05/19 05:58 Vital Signs Date Time Temp Pulse Resp B/P (MAP) Pulse Ox O2 Delivery O2 Flow Rate FiO2 11/05/19 13:52 99.3 93 16 117/77 (90) 95 Room Air 11/04/19 17:00 2 I&O- Last 24 Hours up to 6 AM 11/05/19 06:00 Intake Total 2175 ml Output Total 2820 ml Balance -645 ml JOSELINE ULLOA MD Nov 05, 2019 17:32
[2019-11-05] MEDS: CIPROFLOXACIN 500MG TABLET PO SCH (17:48)
--- NOTE | 2019-11-05 18:32 | IPN ---
DATE: 11/05/2019 Mr. Jha is anxious to go home. He has no nausea, vomiting or diarrhea. No abdominal pain. Yesterday he had another drainage procedure of his liver abscess, and he has a drain in place. He remains afebrile. Rash has resolved. Vital signs: Temperature is 99.3, pulse 93, respirations 16, blood pressure 117/77, oxygen saturation (O2 sat) 95% on room air. Heart: Normal S1, S2. No murmurs, rubs or gallops. Lungs are clear. No wheezes, rales or rhonchi. Abdomen is soft, nontender. No hepatosplenomegaly. Back has a right-sided drain with bloody discharge. There is about 10 mL. Extremities: No clubbing, cyanosis or edema. No calf tenderness. Abscess gram stain has many white blood cells, no organisms seen. Culture is pending. Blood cultures, two sets, were positive for Klebsiella oxytoca on 10/28/2019 and 10/30/2019, 11/03/2019 cultures were negative. LABS: White count is 21.5, hemoglobin 10.6, hematocrit 31.7, platelets 128. Sodium 135, potassium 3.7, chloride 103, bicarbonate 26, BUN 10, creatinine 0.78, glucose 269, calcium 7.7, AST 42, ALT 53, alkaline phosphatase 401, total protein 5.7, albumin 2. IMPRESSION: 1. Liver abscess with Klebsiella oxytoca, status post drainage by Dr. Alvarado. Drain in place. The liver abscess measures 7.5 cm. It is multiloculated in the posterior right hepatic segment. There is no associated adenopathy or ascites. 2. Colonic diverticulosis without diverticulitis. Does not seem to be the origin of the infection. 3. Insulin-dependent diabetes. Glucose have been ranging between 55 and 373. PLAN: Discontinue IV ciprofloxacin and metronidazole, switch to oral Cipro 500 mg by mouth twice a day, metronidazole 500 mg by mouth three times a day. The patient will need at least 4 to 6 weeks of IV antibiotic. He has currently received 8 days. If white count improves and patient tolerating oral antibiotics well, he could probably be discharged home in the next 24-48 hours. Monitor CBC, CRP tomorrow. The patient will need followup with infectious disease in 2 weeks. If he is discharged, make sure he has enough antibiotics for a month.
[2019-11-05] MEDS: metroNIDAZOLE (FLAGYL) 500 MG TAB PO SCH (21:23)
[2019-11-05 22:00] VITALS: BP 101/65
[2019-11-06] MEDS: diphenhydrAMINE 25MG CAP PO PRN (02:55)
[2019-11-06] MEDS: CIPROFLOXACIN 500MG TABLET PO SCH (05:50)
[2019-11-06] MEDS: metroNIDAZOLE (FLAGYL) 500 MG TAB PO SCH ×2 (05:50→13:51)
[2019-11-06] MEDS: SLF 3 ML SYR IV SCH ×2 (05:51→13:48)
[2019-11-06] MEDS: HEPARIN SOD (PORCINE) 5000UNITS/ML VIAL (J1644 PER 1000UNITS) SQ SCH ×2 (05:51→13:48)
[2019-11-06 05:55] LABS: HEMATOCRIT 31.4 % (42.0-52.0); HEMOGLOBIN 10.7 g/dl (13.5-17.5); MEAN CORPUSCULAR HEMOGLOBIN 30.3 pg (27.0-33.0); MEAN CORPUSCULAR HGB CONC 34.1 g/dl (32.0-36.5); PLATELET COUNT, AUTOMATED 174 10^3/uL (150-450); RED BLOOD COUNT 3.53 10^6/uL (4.30-6.10); WHITE BLOOD COUNT 17.9 10^3/uL (4.0-10.0)
[2019-11-06 06:00] VITALS: BP 117/77
[2019-11-06 06:12] LABS: ALT/SGPT 44 U/L (12-78); BILIRUBIN,TOTAL 0.4 MG/DL (0.2-1.0); BLOOD UREA NITROGEN 11 MG/DL (7-18); CALCIUM LEVEL 7.7 MG/DL (8.8-10.2); CARBON DIOXIDE LEVEL 28 MEQ/L (21-32); CHLORIDE LEVEL 103 MEQ/L (98-107); GLOMERULAR FILTRATION RATE > 60.0 (>49); GLUCOSE, FASTING 302 MG/DL (70-100); MAGNESIUM LEVEL 1.6 MG/DL (1.8-2.4); POTASSIUM SERUM 3.8 MEQ/L (3.5-5.1); SODIUM LEVEL 135 MEQ/L (136-145)
[2019-11-06] MEDS: HumaLOG INSULIN (NovoLOG) PER UNIT SC SCH ×2 (08:24→12:15)
[2019-11-06] MEDS: ACETAMINOPHEN TAB 650MG DOSE (2X325MG) PO PRN (08:25)
[2019-11-06] MEDS: PANTOPRAZOLE 40MG TAB (PROTONIX) PO SCH (08:25)
[2019-11-06] MEDS ORDERED: LEVEMIR (INSULIN DETEMIR) 1 UNITS/0.01ML SC SCH (09:00)
[2019-11-06] MEDS: diphenhydrAMINE CREAM 30GM TOP PRN (10:52)
[2019-11-06] MEDS ORDERED: FLAG500T PO (11:35)
[2019-11-06] MEDS ORDERED: CIPR-249 PO (11:35)
[2019-11-06] MEDS ORDERED: ACET1TAB55 PO (11:35)
--- NOTE | 2019-11-06 12:27 | REP ---
IR Liver abscess drain placement using CT guidance. IR moderate sedation. Clinical information: Fever. Suspected liver abscess on CT. Biopsy negative for cancer. Physician: Dr. Alvarado. Procedure: The patient was advised of the benefits, risks and alternatives of the procedure and informed consent was obtained. The time-out was performed with verification of the patient's name, MRN, site of procedure and type of procedure to be performed. Moderate sedation was performed by the physician including the presence of an independent trained observer that assisted in monitoring the patient's level of consciousness and physiologic status. Following the administration of Versed and Fentanyl, the physician spent 45 minutes of continuous face to face time with the patient. The patient was placed in the prone position on the CT gantry and a scan was performed through the region of interest. This demonstrates large, low density irregular hypodense area within the liver. After marking the overlying skin, the patient was prepped and draped in the usual sterile fashion. The soft tissues overlying the puncture site were anesthetized with lidocaine. Through this anesthetized region, an 18 gauge Chiba needle was advanced into the area under intermittent CT guidance. White, thick fluid was aspirated. An Amplatz wire was advanced into the fluid collection over which a 12-Kiswahili APDL was advanced. A fluid specimen was aspirated. Subsequent localized CT scanning was performed to confirm catheter location. The catheter was then locked, sutured in position and placed to gravity drainage. The specimen was labeled with the patient's name, medical record number and sent to the lab for further analysis. The patient tolerated the procedure well and was returned to PRU in stable condition. EBL: Less than 5 ml. Complications: None. Conclusion: 1. CT demonstrates irregular hypodense area within the liver, previously seen to be rim-enhancing. Past biopsy was negative for cancer. 2. Successful CT guided drainage catheter placement. Catheter requires flushing with 10 ml sterile saline every day. Patient to follow up in IR clinic in 4weeks for ongoing drain management. Thank you this referral cc Dr Callahan. Electronically Signed by Marilia Alvarado MD 11/06/2019 12:25 P
[2019-11-06 14:00] VITALS: BP 116/66
--- NOTE | 2019-11-06 19:00 | DS.PDOC ---
Discharge Summary General Date of Admission Oct 28, 2019 at 05:37 Date of Discharge 11/06/19 Discharge Summary PROCEDURES PERFORMED DURING STAY: [None]. ADMITTING DIAGNOSES: Severe sepsis Liver abscess Klebsiella bacteremia Acute kidney injury Type 2 diabetes Metabolic encephalopathy likely 2/2 to sepsis DISCHARGE DIAGNOSES: Severe sepsis Liver abscess Klebsiella bacteremia Acute kidney injury Type 2 diabetes Metabolic encephalopathy likely 2/2 to sepsis COMPLICATIONS/CHIEF COMPLAINT: Taye, Sepsis. HISTORY OF PRESENT ILLNESS: 64 y/o M admitted with septic shock with ongoing CAP and right liver abscess vs. mass with septic shock now resolved with course c/b persistent fevers with imaging showing persistent abscess despite drainage on 10/27 now s/p drain on 11/03. HOSPITAL COURSE: During hospital stay following issues addressed Severe sepsis Secondary to Klebsiella bacteremia Patient was found to have liver abscess which was drained and re drained Recommended Cipro and Flagyl for next [address] Callahan spoke with patient who is apprehensive about a colonoscopy due to negative prior experiences and would like time to think about it. Liver abscess -s/p US guided drainage on 10/27. Thereafter had a persistent collection on 10/30 US and 11/03 CT A/P, IR drained it again today 11/03 and placed a drain. -Pending 11/03 abscess fluid cultures -continue cipro/flagyl -No malignant cells on cytology, no cultures were sent -Surgery was consulted, recommended IR drainage, spoke with the patient about colonoscopy though patient apprehensive due to prior experiences -E.histolytica Ab negative -11/02 BCx negative Klebsiella bacteremia Blood culture no growth after 5 days Continue Cipro and Flagyl TTE w/ normal EF, no vegetations and grade 1 diastolic dysfunction Acute kidney injury Resolved Most likely prerenal secondary to sepsis Type 2 diabetes Patient had persistent hyperglycemia during hospital stay Will restart Levemir 10 units tomorrow Continue insulin sliding scale Diabetes diet Metabolic encephalopathy likely 2/2 to sepsis Resolved DISCHARGE MEDICATIONS: Please see below. ALLERGIES: Please see below. PHYSICAL EXAMINATION ON DISCHARGE: GENERAL: No acute distress EYES: PERRLA, EOMI HEENT: Normocephalic, atraumatic, MMM NECK: SUPPLE, no JVD, no noted adenopathy CV: Regular rate and rhythm, S1S2 normal, no murmurs/rubs/gallops RESPIRATORY: Clear to auscultation bilaterally GI: Normoactive bowel sounds, soft, nontender, nondistended, no rebound or guarding, no organomegaly EXT: Normal ROM. No cyanosis, clubbing, swelling, joint deformity, extremity edema SKIN: Intact, continues to have scattered erythematous pruritic rash NEUROLOGIC: Cranial Nerves II-XII are intact, no focal deficits PSYCHIATRIC: Mood and affect are normal LABORATORY DATA: Please see below. IMAGING: IR Liver abscess drain placement using CT guidance. IR moderate sedation. Clinical information: Fever. Suspected liver abscess on CT. Biopsy negative for cancer. Physician: Dr. Alvarado. Procedure: The patient was advised of the benefits, risks and alternatives of the procedure and informed consent was obtained. The time-out was performed with verification of the patient's name, MRN, site of procedure and type of procedure to be performed. Moderate sedation was performed by the physician including the presence of an independent trained observer that assisted in monitoring the patient's level of consciousness and physiologic status. Following the administration of Versed and Fentanyl, the physician spent 45 minutes of continuous face to face time with the patient. The patient was placed in the prone position on the CT gantry and a scan was performed through the region of interest. This demonstrates large, low density irregular hypodense area within the liver. After marking the overlying skin, the patient was prepped and draped in the usua l sterile fashion. The soft tissues overlying the puncture site were anesthetized with lidocaine. Through this anesthetized region, an 18 gauge Chiba needle was advanced into the area under intermittent CT guidance. White, thick fluid was aspirated. An Amplatz wire was advanced into the fluid collection over which a 12-Georgian APDL was advanced. A fluid specimen was aspirated. Subsequent localized CT scanning was performed to confirm catheter location. The catheter was then locked, sutured in position and placed to gravity drainage. The specimen was labeled with the patient's name, medical record number and sent to the lab for further analysis. The patient tolerated the procedure well and was returned to PRU in stable condition. EBL: Less than 5 ml. Complications: None. Conclusion: 1. CT demonstrates irregular hypodense area within the liver, previously seen to be rim-enhancing. Past biopsy was negative for cancer. 2. Successful CT guided drainage catheter placement. Catheter requires flushing with 10 ml sterile saline every day. Patient to follow up in IR clinic in 4weeks for ongoing drain management. Thank you this referral cc Dr Callahan. PROGNOSIS: Fair ACTIVITY: [As tolerated]. DIET: Cardiac DISPOSITION: 01 Home, Self-Care. DISCHARGE INSTRUCTIONS: Follow surgical instruction ITEMS TO FOLLOWUP ON ON OUTPATIENT: Follow-up with infectious diseases specialist, PCP DISCHARGE CONDITION: [Stable]. TIME SPENT ON DISCHARGE: Greater than20 minutes. Vital Signs/I&Os Vital Signs Date Time Temp Pulse Resp B/P (MAP) Pulse Ox O2 Delivery O2 Flow Rate FiO2 11/06/19 14:00 98.6 90 19 116/66 (83) 98 Room Air 11/04/19 17:00 2 I&O- Last 24 Hours up to 6 AM 11/06/19 06:00 Intake Total 1635 ml Output Total 350 ml Balance 1285 ml Laboratory Data Labs 24H Laboratory Tests 2 11/05/19 20:44: Bedside Glucose (Misc Panel) 269H 11/06/19 05:34: Nucleated Red Blood Cells % (auto) 0.0, Anion Gap 4L, Glomerular Filtration Rate > 60.0, Calcium Level 7.7L, Magnesium Level 1.6L, Total Bilirubin 0.4, Aspartate Amino Transf (AST/SGOT) 28, Alanine Aminotransferase (ALT/SGPT) 44, Alkaline Phosphatase 346H, C-Reactive Protein, Quantitative 11.90H, Total Protein 6.0L, Albumin 2.0L, Albumin/Globulin Ratio 0.5 11/06/19 11:27: Bedside Glucose (Misc Panel) 435H CBC/BMP Laboratory Tests 11/06/19 05:34 FSBS Laboratory Tests Test 11/05/19 20:44 11/06/19 11:27 Range/Units Bedside Glucose (Misc Panel) 269 435 80-115 MG/DL Microbiology Microbiology 11/04/19 Fungal Smear, Received Pending 11/04/19 Fungal Culture, Received Pending 11/04/19 Gram Stain - Final, Resulted 11/04/19 Body Fluid Culture, Resulted Pending 11/03/19 Blood Culture - Preliminary, Resulted No Growth after 72 hours. All specime... 11/03/19 Blood Culture - Preliminary, Resulted No Growth after 72 hours. All specime... 10/30/19 Blood Culture - Final, Complete NO GROWTH AFTER 5 DAYS 10/30/19 Blood Culture - Final, Complete Klebsiella Oxytoca 10/28/19 Blood Culture - Final, Complete NO GROWTH AFTER 5 DAYS 10/28/19 Respiratory Virus Panel (PCR) (NUSRAT) - Final, Complete 10/28/19 Urine Culture - Final, Complete 10/28/19 Blood Culture - Final, Complete Klebsiella Oxytoca Discharge Medications Scheduled Aspirin (Aspirin EC) 81 Mg Tab, 81 MG PO DAILY, (Reported) Atenolol (Atenolol) 50 Mg Tab, 50 MG PO DAILY, (Reported) Ciprofloxacin HCl (Cipro) 500 Mg Tablet, 500 MG PO BID@,18 Docusate Sodium (Stool Softener) 100 Mg Cap, 100 MG PO BID, (Reported) Dulaglutide (Trulicity) 1.5 Mg/0.5 Ml Pen.injctr, 1.5 MG SC Q7D, (Reported) Gabapentin (Gabapentin) 400 Mg Cap, 400 MG PO QID, (Reported) Hydrochlorothiazide (Hydrochlorothiazide) 25 Mg Tablet, 25 MG PO DAILY, (R eported) Insulin Glargine (Lantus) 1 Units/0.01 Ml Susp, 80 UNITS SC QPM, (Reported) Insulin Human Lispro (Novolog) 100 U/Ml Inj, 10 UNITS SC AC, (Reported) Losartan Potassium (Losartan Potassium) 50 Mg Tablet, 50 MG PO DAILY, (Reported) Meloxicam (Meloxicam) 15 Mg Tablet, 15 MG PO DAILY, (Reported) Metformin HCl (Metformin HCl) 1,000 Mg Tab, 1,000 MG PO BID, (Reported) Metronidazole (Flagyl) 500 Mg Tablet, 500 MG PO Q8H Multivitamin (Multivitamins) 1 Each Capsule, 1 CAP PO BID, (Reported) Omeprazole (Omeprazole) 20 Mg Capsule.dr, 20 MG PO BID, (Reported) Pioglitazone HCl (Pioglitazone HCl) 45 Mg Tab, 45 MG PO DAILY, (Reported) Rosuvastatin Calcium (Rosuvastatin Calcium) 40 Mg Tablet, 40 MG PO DAILY, (Reported) Scheduled PRN Acetaminophen (Acetaminophen) 325 Mg Tablet, 650 MG PO Q4H PRN for PAIN OR FEVER Diclofenac Sodium (Diclofenac Sodium) 1% 100GM Gel..gram., 4 GM TOP BID PRN for PAIN, (Reported) Apply to area of pain Ketotifen Fumarate (Ketotifen Fumarate) 5 Ml Drops, 1 DROP OU BID PRN for ALLERGY, (Reported) Lidocaine (Lidocaine) 120 Gm Oint...g., 1 DOSE TOP BID PRN for PAIN, (Reported) Tramadol HCl (Tramadol HCl) 50 Mg Tab, 50 MG PO TIDP PRN for PAIN OR FEVER, (Reported) Miscellaneous Medications [Patient Comments] , (Reported) PATIENT VERY DROWSY, UNABLE TO ANSWER QUESTIONS REGARDING MEDICATIONS. MEDICATION LIST IS FOR CURRENT RX'S AT HIS PHARMACY Allergies Coded Allergies: piperacillin (Verified Allergy, Mild, Rash/Itching, 11/01/19) tazobactam (Verified Allergy, Mild, Rash/Itching, 11/01/19) duloxetine (Verified Adverse Reaction, Mild, NIGHTMARES, 10/28/19) lisinopril (Verified Adverse Reaction, Mild, CHEST PAIN, 10/28/19) SANDRA WARD DO Nov 06, 2019 18:59
== END 2019-11-06 16:45 | disposition home or self-care (01) | DRG 871 ==
LOC: M ED 03:23 → M ED INP 05:37 → ENRESERV 07:20 → M ICU 09:06 → M PCU 10-29 13:42 → M MSPAV 11-03 05:34
PROVIDERS: ADMIT Internal Medicine; ATTEND Internal Medicine
PROC: 0F913ZX Drainage of Right Lobe Liver, Percutaneous Approach, Diagnostic (ICD-10-PCS; principal; 2019-10-28 14:30)
PROC: 0F913ZX Drainage of Right Lobe Liver, Percutaneous Approach, Diagnostic (ICD-10-PCS; 2019-11-04)
DX: A41.9 Sepsis, unspecified organism (principal); R65.21 Severe sepsis with septic shock; J18.9 Pneumonia, unspecified organism; K75.0 Abscess of liver; G93.41 Metabolic encephalopathy; N17.9 Acute kidney failure, unspecified; E11.65 Type 2 diabetes mellitus with hyperglycemia; Z79.82 Long term (current) use of aspirin; Z79.899 Other long term (current) drug therapy; Z79.4 Long term (current) use of insulin; Z88.8 Allergy status to other drugs, medicaments and biological substances; E11.51 Type 2 diabetes mellitus with diabetic peripheral angiopathy without gangrene; M19.90 Unspecified osteoarthritis, unspecified site; K21.9 Gastro-esophageal reflux disease without esophagitis; E78.5 Hyperlipidemia, unspecified; I10 Essential (primary) hypertension

== ENCOUNTER → 2019-11-12 | Outpatient (REF) | payer OTHER ==
[~2019-11-12] MED LIST changes: +ACET1TAB55 PO; +DICL1GEL3 TOP; +HYDR25TAB PO; +KETO0.02 OU; +LIDO5OIN19 TOP; +LOSA50TA88 PO; +MELO15TA28 PO; +MULTCAP PO; +OMEP1CAP73 PO; +PATIENT COMMENTS; +ROSU40TA4 PO; +TRUL0.5I SC
[2019-11-12 14:04] LABS: BASO # 0.1 10^3/uL (0.0-0.2); BASO % 0.4 % (0.0-1.0); EOS # 0.4 10^3/uL (0.0-0.5); EOS % 3.6 % (0.0-3.0); HEMATOCRIT 34.8 % (42.0-52.0); LYMPH # 1.7 10^3/uL (1.5-5.0); LYMPH % 15.6 % (24.0-44.0); MEAN CORPUSCULAR HGB CONC 31.6 g/dl (32.0-36.5); MEAN CORPUSCULAR VOLUME 91.8 fl (80.0-96.0); MONO # 0.8 10^3/uL (0.0-0.8); MONO % 7.6 % (0.0-5.0); NEUTROPHILS % 72.4 % (36.0-66.0); PLATELET COUNT, AUTOMATED 400 10^3/uL (150-450); RED BLOOD COUNT 3.79 10^6/uL (4.30-6.10); WHITE BLOOD COUNT 11.1 10^3/uL (4.0-10.0)
[2019-11-12 14:42] LABS: ERYTHROCYTE SEDIMENTATION RATE 63 mm/hr (0-20)
[2019-11-12 15:27] LABS: ALBUMIN 2.5 GM/DL (3.2-5.2); ALT/SGPT 30 U/L (12-78); BILIRUBIN,TOTAL 0.3 MG/DL (0.2-1.0); BLOOD UREA NITROGEN 15 MG/DL (7-18); C REACTIVE PROTEIN QUANTITATIV 4.25 MG/DL (0.00-0.30); CALCIUM LEVEL 8.7 MG/DL (8.8-10.2); CARBON DIOXIDE LEVEL 29 MEQ/L (21-32); CHLORIDE LEVEL 104 MEQ/L (98-107); CREATININE FOR GFR 1.02 MG/DL (0.70-1.30); GLOMERULAR FILTRATION RATE > 60.0 (>49); GLUCOSE, FASTING 127 MG/DL (70-100); POTASSIUM SERUM 4.7 MEQ/L (3.5-5.1); SODIUM LEVEL 138 MEQ/L (136-145); TOTAL PROTEIN 6.6 GM/DL (6.4-8.2)
== END ==
LOC: M SFHCPLAZ 12:05
PROVIDERS: ATTEND Internal Medicine Infectious Disease
DX: K75.0 Abscess of liver (principal)

== ENCOUNTER → 2019-12-17 | Outpatient (POV) | payer OTHER ==
--- NOTE | 2020-01-23 10:21 | IRPN ---
[facility] IR Progress Note IR Progress Note DATE: Dec 17, 2019 Patient agreed to this telephone follow-up. Duration of call 10 minutes. FOLLOW-UP: Patient presented in October 2019 with abdominal pain and multiloculated right hepatic lobe abscess. A percutaneous CT-guided drainage catheter was placed at that time, into the right hepatic lobe abscess. Patient describes interval resolution of pain. No fevers or chills. No further drainage from the catheter. IMPRESSION: Doing well status post drainage of right hepatic lobe abscess with no further pain, fevers, chills or drainage from the tube. Follow-up with CT scan and drain removal as appropriate. 12/26/2019. CT abdomen with IV contrast was performed on 12/26/2019. This demonstrated complete resolution of the hepatic abscess. The catheter was jong lola in its entirety. Thank you for this referral Cc Dr. Tatyana Estrada Allergies Coded Allergies: piperacillin (Verified Allergy, Mild, Rash/Itching, 11/01/19) tazobactam (Verified Allergy, Mild, Rash/Itching, 11/01/19) duloxetine (Verified Adverse Reaction, Mild, NIGHTMARES, 10/28/19) lisinopril (Verified Adverse Reaction, Mild, CHEST PAIN, 10/28/19) GERMAN JEREZ MD Jan 23, 2020 10:21
== END ==
LOC: M IRPOV 09:00
PROVIDERS: ATTEND Radiology Diagnostic Radiology
DX: K75.0 Abscess of liver (principal)

== ENCOUNTER → 2019-12-26 | Outpatient (CLI) | payer OTHER ==
[~2019-12-26] MED LIST changes: +ISOVUE-370 76% 100ML VIAL As Ordered ONE
--- NOTE | 2020-01-24 11:19 | POST-OPPD ---
Postoperative Procedure Note Date Of Procedure: Dec 26, 2019 Time Of Procedure: 11:17 Full note Real-time CT of the abdomen with IV contrast demonstrates interval resolution of liver abscess. The liver abscess drainage catheter was cut and removed in its entirety and a sterile dressing was applied to the site. GERMAN JEREZ MD Jan 24, 2020 11:19
--- NOTE | 2020-02-13 11:07 | REP ---
CT ABDOMEN WITH IV CONTRAST This report was delayed due to a malware attack on this facility. HISTORY: Liver abscess. Drain removal. COMPARISON: CT study 11/04/2019. CT FINDINGS: Preliminary digital phone counselor radiograph demonstrates a pigtail drainage catheter projecting over the liver in the right upper quadrant. The bowel gas pattern is normal. On axial CT images, lung bases are free of infiltrate. There is mildly pleural parenchymal fibrosis in the right base. No pleural effusion is seen. Axial images through the liver demonstrate percutaneous intrahepatic course of the drainage catheter. No abscess cavity or fluid cavity is seen associated with the drainage catheter. No focal liver mass lesion is seen. There is mild fatty infiltration with area fat-sparing near the gallbladder. Gallbladder is unremarkable. No abnormality is noted in the pancreas. There is a calcification at the periphery of the pancreatic head unchanged. There is left colonic diverticulosis. No adrenal lesion is seen. The kidneys enhance symmetrically. There is a small peripheral cyst left kidney. IMPRESSION: Previously noted hepatic abscess drainage catheter is seen within the posterior segment of the right lobe of the liver. No discernable abscess cavity. MTDD
== END ==
LOC: M RAD 13:37
PROVIDERS: ATTEND Radiology Diagnostic Radiology
DX: Z48.03 Encounter for change or removal of drains (principal)
CPT/HCPCS: 74160; Q9967

== ENCOUNTER 2021-07-20 05:54 | Emergency (ER) | payer OTHER ==
[~2021-07-20] VITALS: Ht 170.2 cm; Wt 84.1 kg
[~2021-07-20 05:54] MED LIST changes: +GABA-283 PO; -GABA-845 PO; +HYDR-3490 PO; -HYDR25TAB PO; -ISOVUE-370 76% 100ML VIAL As Ordered ONE; +LOSA100T45 PO; -LOSA100T50 PO; +LOSA50TA28 PO; -LOSA50TA88 PO; +OMEP40CA4 PO; -OMEP40CA97 PO
[2021-07-20] MEDS ORDERED: POTA10CA32 PO (06:08)
[2021-07-20] MEDS ORDERED: GENT0.1C2 TOP (06:12)
[2021-07-20] MEDS ORDERED: NS 500 ML IV ONE (06:15)
[2021-07-20] MEDS ORDERED: LOSARTAN 50MG TABLET PO ONE (06:20)
[2021-07-20] MEDS ORDERED: ACETAMINOPHEN 325 MG TAB PO ONE (06:35)
[2021-07-20 06:40] LABS: BASO # 0.1 10^3/uL (0.0-0.2); BASO % 0.6 % (0.0-1.0); EOS # 0.3 10^3/uL (0.0-0.5); EOS % 2.3 % (0.0-3.0); HEMATOCRIT 39.8 % (42.0-52.0); HEMOGLOBIN 13.6 g/dl (13.5-17.5); LYMPH # 1.5 10^3/uL (1.5-5.0); LYMPH % 13.3 % (24.0-44.0); MEAN CORPUSCULAR HEMOGLOBIN 30.6 pg (27.0-33.0); MEAN CORPUSCULAR HGB CONC 34.2 g/dl (32.0-36.5); MEAN CORPUSCULAR VOLUME 89.6 fl (80.0-96.0); MONO # 0.7 10^3/uL (0.0-0.8); MONO % 6.6 % (2.0-8.0); NEUTROPHILS # 8.6 10^3/uL (1.5-8.5); NEUTROPHILS % 76.8 % (36.0-66.0); PLATELET COUNT, AUTOMATED 287 10^3/uL (150-450); RED BLOOD COUNT 4.44 10^6/uL (4.30-6.10); WHITE BLOOD COUNT 11.2 10^3/uL (4.0-10.0)
[2021-07-20 06:45] VITALS: BP 136/84
[2021-07-20 07:05] LABS: ERYTHROCYTE SEDIMENTATION RATE 10 mm/hr (0-20)
[2021-07-20 07:10] LABS: BLOOD UREA NITROGEN 29 MG/DL (7-18); CALCIUM LEVEL 8.9 MG/DL (8.8-10.2); CARBON DIOXIDE LEVEL 28 MEQ/L (21-32); CHLORIDE LEVEL 107 MEQ/L (98-107); CREATININE FOR GFR 0.94 MG/DL (0.70-1.30); GLOMERULAR FILTRATION RATE > 60.0 (>49); GLUCOSE, FASTING 124 MG/DL (70-100); SODIUM LEVEL 139 MEQ/L (136-145)
[2021-07-20 07:13] LABS: ALBUMIN 3.8 GM/DL (3.2-5.2); ALT/SGPT 27 U/L (12-78); BILIRUBIN,DIRECT 0.1 MG/DL (0.0-0.2); BILIRUBIN,TOTAL 0.3 MG/DL (0.2-1.0); C REACTIVE PROTEIN QUANTITATIV < 0.30 MG/DL (0.00-0.30); LIPASE 161 U/L (73-393)
[2021-07-20] MEDS ORDERED: LIDOCAINE 5% (LIDODERM) PATCH TD ONE (07:30)
[2021-07-20] MEDS ORDERED: methocarbamoL 500 MG TAB PO ONE (07:30)
[2021-07-20] MEDS ORDERED: MORPHINE 4 MG/ML 1ML VIAL/SYRINGE (J2270) IV ONE (08:25)
[2021-07-20] MEDS ORDERED: PROHANCE 279.3MG/ML 5ML VIAL As Ordered ONE (11:18)
[2021-07-20] MEDS ORDERED: PROHANCE 279.3MG/ML 15ML VIAL As Ordered ONE (11:18)
[2021-07-20 15:30] VITALS: BP 130/77
[2021-07-20] MEDS ORDERED: METH-1164 PO (15:54)
[2021-07-20] MEDS ORDERED: **NOTE PATIENT COMMENT** MISC XX ONE (21:00)
== END 2021-07-20 17:10 | disposition home or self-care (01) ==
LOC: M ED 05:54
DX: M43.16 Spondylolisthesis, lumbar region (principal); M51.26 Other intervertebral disc displacement, lumbar region; M53.86 Other specified dorsopathies, lumbar region; R94.4 Abnormal results of kidney function studies; E11.40 Type 2 diabetes mellitus with diabetic neuropathy, unspecified; I10 Essential (primary) hypertension; E78.5 Hyperlipidemia, unspecified; K21.9 Gastro-esophageal reflux disease without esophagitis; N17.9 Acute kidney failure, unspecified; F17.200 Nicotine dependence, unspecified, uncomplicated; Z79.4 Long term (current) use of insulin; Z79.82 Long term (current) use of aspirin; Z79.899 Other long term (current) drug therapy; Z88.8 Allergy status to other drugs, medicaments and biological substances
CPT/HCPCS: 72131; 72158; 73564; 80048; 82248; 83690; 85025; 85652; 86140; 99285; A9576; J2270

== ENCOUNTER 2021-10-22 12:37 | Inpatient (IN) | payer OTHER, SELFPAY ==
[~2021-10-22] VITALS: Ht 170.2 cm; Wt 88.1 kg
[~2021-10-22 12:37] MED LIST changes: +GENT0.1C2 TOP; +METH-1164 PO; +POTA10CA32 PO
[2021-10-22] MEDS ORDERED: NS 1,000 ML IV ONE ×2 (13:05→18:30)
[2021-10-22 13:18] LABS: BASO # 0.1 10^3/uL (0.0-0.2); BASO % 0.7 % (0.0-1.0); EOS # 0.4 10^3/uL (0.0-0.5); EOS % 4.4 % (0.0-3.0); HEMATOCRIT 40.7 % (42.0-52.0); HEMOGLOBIN 13.4 g/dl (13.5-17.5); LYMPH # 2.1 10^3/uL (1.5-5.0); LYMPH % 22.7 % (24.0-44.0); MEAN CORPUSCULAR HEMOGLOBIN 30.9 pg (27.0-33.0); MEAN CORPUSCULAR HGB CONC 32.9 g/dl (32.0-36.5); MEAN CORPUSCULAR VOLUME 93.8 fl (80.0-96.0); MONO # 0.8 10^3/uL (0.0-0.8); MONO % 8.7 % (2.0-8.0); NEUTROPHILS # 5.7 10^3/uL (1.5-8.5); NEUTROPHILS % 63.1 % (36.0-66.0); PLATELET COUNT, AUTOMATED 278 10^3/uL (150-450); RED BLOOD COUNT 4.34 10^6/uL (4.30-6.10); WHITE BLOOD COUNT 9.1 10^3/uL (4.0-10.0)
[2021-10-22 13:42] LABS: ABG BASE EXCESS -1.6 (-2.0-2.0); ABG HCO3 24.1 MEQ/L (22.0-26.0); ABG O2 SATURATION 95.7 % (95.0-99.0); ABG PARTIAL PRESSURE CO2 44.5 mmHg (35.0-45.0); ABG PARTIAL PRESSURE O2 82.6 mmHg (75.0-100.0); ABG STANDARD HCO3 23.1 MEQ/L (22.0-26.0); ABG TOTAL CO2 25.5 MEQ/L (23.0-31.0); ABG pH (ARTERIAL) 7.352 UNITS (7.350-7.450)
[2021-10-22 13:44] LABS: PROTHROMBIN TIME 13.6 SECONDS (12.7-14.5)
[2021-10-22 13:45] LABS: PARTIAL THROMBOPLASTIN TIME 30.4 SECONDS (25.9-37.0)
[2021-10-22 13:47] LABS: CK-MB VALUE MASS 4.1 NG/ML (<3.6); MB/CK RELATIVE INDEX 3.28 (< OR =4)
[2021-10-22 13:52] LABS: ALBUMIN 3.6 GM/DL (3.2-5.2); ALT/SGPT 35 U/L (12-78); BILIRUBIN,DIRECT < 0.1 MG/DL (0.0-0.2); BILIRUBIN,TOTAL 0.3 MG/DL (0.2-1.0); BLOOD UREA NITROGEN 36 MG/DL (7-18); CALCIUM LEVEL 8.5 MG/DL (8.8-10.2); CARBON DIOXIDE LEVEL 27 MEQ/L (21-32); CHLORIDE LEVEL 108 MEQ/L (98-107); CREATININE FOR GFR 1.63 MG/DL (0.70-1.30); FREE T4 0.88 NG/DL (0.76-1.46); GLOMERULAR FILTRATION RATE 45.6 (>49); GLUCOSE, FASTING 115 MG/DL (70-100); POTASSIUM SERUM 4.2 MEQ/L (3.5-5.1); SODIUM LEVEL 142 MEQ/L (136-145); TOTAL PROTEIN 6.8 GM/DL (6.4-8.2)
[2021-10-22 14:32] LABS: ETHYL ALCOHOL (ETHANOL) < 0.003 % (0.000-0.010); SALICYLATE LEVEL 3.4 MG/DL (5.0-30.0)
[2021-10-22 14:47] LABS: CK-MB VALUE MASS 3.8 NG/ML (<3.6); MB/CK RELATIVE INDEX 3.52 (< OR =4)
[2021-10-22] MEDS ORDERED: ceFAZolin SOD 1 GM in D5W MINI-BAG PLUS 50 ML IV ONE (15:15)
[2021-10-22] MEDS ORDERED: ACETAMINOPHEN TAB 650MG DOSE (2X325MG) PO PRN (16:25)
[2021-10-22] MEDS ORDERED: MOM 30ML SUSPENSION UDC PO PRN (16:25)
[2021-10-22] MEDS ORDERED: MAALOX 30 ML SUSP *UDC PO PRN (16:25)
[2021-10-22] MEDS ORDERED: POTA10TA17 PO (16:54)
[2021-10-22] MEDS ORDERED: GLUCAGON INJ 1MG VIAL SC PRN (16:55)
[2021-10-22] MEDS ORDERED: DEXTROSE 50% 50 ML SYRINGE IV PRN (16:55)
[2021-10-22] MEDS ORDERED: GLUCOSE 4GM CHEW TABLET PO PRN (16:55)
[2021-10-22] MEDS ORDERED: HOME MED LIST COMPLETE! XX SCH (16:55)
[2021-10-22 17:19] LABS: ACETAMINOPHEN LEVEL < 2.0 UG/ML (10.0-30.0)
[2021-10-22] MEDS: NS 1,000 ML IV SCH (17:30)
[2021-10-22 18:02] LABS: CK-MB VALUE MASS 4.3 NG/ML (<3.6); MB/CK RELATIVE INDEX 3.26 (< OR =4)
[2021-10-22 19:43] LABS: HEMOGLOBIN A1c 7.9 %
[2021-10-22 20:05] VITALS: BP 139/87
[2021-10-22] MEDS: INSULIN LISPRO (NovoLOG) PER UNIT SC SCH ×2 (20:19→20:20)
[2021-10-22 20:32] LABS: CK-MB VALUE MASS 4.6 NG/ML (<3.6); MB/CK RELATIVE INDEX 3.65 (< OR =4)
[2021-10-22] MEDS: DOCUSATE SODIUM 100MG CAPSULE PO SCH (21:00)
[2021-10-22] MEDS: GABAPENTIN 300 MG CAP PO SCH (21:27)
[2021-10-22] MEDS: OMEPRAZOLE 20MG CAP PO SCH (21:28)
[2021-10-22] MEDS: LEVEMIR (INSULIN DETEMIR) 1 UNITS/0.01ML SC SCH (21:29)
[2021-10-22] MEDS: ceFAZolin SOD 2 GM in IV 1 EA IV SCH (23:11)
[2021-10-22 23:43] LABS: CK-MB VALUE MASS 5.1 NG/ML (<3.6); MB/CK RELATIVE INDEX 3.98 (< OR =4)
[2021-10-23] VITALS: BP 121/67
[2021-10-23 04:00] VITALS: BP 126/68
[2021-10-23] MEDS: NS 1,000 ML IV SCH (05:32)
[2021-10-23 06:05] LABS: BASO # 0.1 10^3/uL (0.0-0.2); BASO % 0.4 % (0.0-1.0); EOS # 0.3 10^3/uL (0.0-0.5); EOS % 2.4 % (0.0-3.0); HEMATOCRIT 38.8 % (42.0-52.0); HEMOGLOBIN 13.1 g/dl (13.5-17.5); LYMPH % 15.2 % (24.0-44.0); MEAN CORPUSCULAR HGB CONC 33.8 g/dl (32.0-36.5); MEAN CORPUSCULAR VOLUME 91.7 fl (80.0-96.0); MONO # 1.1 10^3/uL (0.0-0.8); MONO % 8.4 % (2.0-8.0); NEUTROPHILS # 9.7 10^3/uL (1.5-8.5); NEUTROPHILS % 73.2 % (36.0-66.0); PLATELET COUNT, AUTOMATED 260 10^3/uL (150-450); RED BLOOD COUNT 4.23 10^6/uL (4.30-6.10); WHITE BLOOD COUNT 13.3 10^3/uL (4.0-10.0)
[2021-10-23 06:32] LABS: BLOOD UREA NITROGEN 28 MG/DL (7-18); CALCIUM LEVEL 8.6 MG/DL (8.8-10.2); CARBON DIOXIDE LEVEL 23 MEQ/L (21-32); CHLORIDE LEVEL 110 MEQ/L (98-107); CREATININE FOR GFR 1.05 MG/DL (0.70-1.30); GLOMERULAR FILTRATION RATE > 60.0 (>49); GLUCOSE, FASTING 144 MG/DL (70-100); MAGNESIUM LEVEL 2.1 MG/DL (1.8-2.4); POTASSIUM SERUM 4.1 MEQ/L (3.5-5.1); SODIUM LEVEL 140 MEQ/L (136-145)
[2021-10-23 08:00] VITALS: BP 140/77
[2021-10-23] MEDS: INSULIN LISPRO (NovoLOG) PER UNIT SC SCH ×4 (09:59→20:37)
[2021-10-23] MEDS: ceFAZolin SOD 2 GM in IV 1 EA IV SCH ×2 (09:59→16:23)
[2021-10-23] MEDS: LEVEMIR (INSULIN DETEMIR) 1 UNITS/0.01ML SC SCH (10:00)
[2021-10-23] MEDS: OMEPRAZOLE 20MG CAP PO SCH ×2 (10:00→20:38)
[2021-10-23] MEDS: DOCUSATE SODIUM 100MG CAPSULE PO SCH ×2 (10:00→20:37)
[2021-10-23] MEDS: GABAPENTIN 300 MG CAP PO SCH ×3 (10:00→20:36)
[2021-10-23] MEDS: ROSUVASTATIN 10 MG TAB (CRESTOR) PO SCH (10:00)
[2021-10-23] MEDS: NEOSPORIN TOP OINT 15GM TOP SCH ×2 (10:01→20:38)
[2021-10-23 12:05] VITALS: BP 135/79
[2021-10-23] MEDS ORDERED: CEPH500C PO ×2 (13:09→13:41)
[2021-10-23] MEDS ORDERED: INSULANT SC (13:09)
[2021-10-23] MEDS ORDERED: NEOM28OI TOP ×2 (13:09→13:41)
[2021-10-23] MEDS: ASPIRIN 81MG ENTERIC TABLET PO SCH (14:41)
[2021-10-23 16:33] VITALS: BP 155/89
[2021-10-23 20:00] VITALS: BP 145/72
[2021-10-24] VITALS: BP 130/77
[2021-10-24] MEDS: ceFAZolin SOD 2 GM in IV 1 EA IV SCH ×2 (00:24→09:32)
[2021-10-24 04:00] VITALS: BP 144/82
[2021-10-24 06:07] LABS: BASO # 0.1 10^3/uL (0.0-0.2); BASO % 0.7 % (0.0-1.0); EOS # 0.5 10^3/uL (0.0-0.5); EOS % 4.7 % (0.0-3.0); HEMATOCRIT 38.3 % (42.0-52.0); HEMOGLOBIN 12.8 g/dl (13.5-17.5); LYMPH # 2.2 10^3/uL (1.5-5.0); LYMPH % 22.1 % (24.0-44.0); MEAN CORPUSCULAR HEMOGLOBIN 30.4 pg (27.0-33.0); MEAN CORPUSCULAR HGB CONC 33.4 g/dl (32.0-36.5); MONO % 10.1 % (2.0-8.0); NEUTROPHILS # 6.1 10^3/uL (1.5-8.5); PLATELET COUNT, AUTOMATED 262 10^3/uL (150-450); RED BLOOD COUNT 4.21 10^6/uL (4.30-6.10); WHITE BLOOD COUNT 9.8 10^3/uL (4.0-10.0)
[2021-10-24 06:33] LABS: BLOOD UREA NITROGEN 21 MG/DL (7-18); CALCIUM LEVEL 8.9 MG/DL (8.8-10.2); CARBON DIOXIDE LEVEL 25 MEQ/L (21-32); CHLORIDE LEVEL 110 MEQ/L (98-107); CREATININE FOR GFR 0.99 MG/DL (0.70-1.30); GLOMERULAR FILTRATION RATE > 60.0 (>49); GLUCOSE, FASTING 135 MG/DL (70-100); MAGNESIUM LEVEL 2.1 MG/DL (1.8-2.4); POTASSIUM SERUM 3.9 MEQ/L (3.5-5.1); SODIUM LEVEL 142 MEQ/L (136-145)
[2021-10-24 08:10] VITALS: BP 135/89
[2021-10-24] MEDS: DOCUSATE SODIUM 100MG CAPSULE PO SCH (09:00)
[2021-10-24] MEDS: INSULIN LISPRO (NovoLOG) PER UNIT SC SCH ×2 (09:32→12:33)
[2021-10-24] MEDS: ROSUVASTATIN 10 MG TAB (CRESTOR) PO SCH (09:32)
[2021-10-24] MEDS: GABAPENTIN 300 MG CAP PO SCH (09:33)
[2021-10-24] MEDS: ASPIRIN 81MG ENTERIC TABLET PO SCH (09:33)
[2021-10-24] MEDS: NEOSPORIN TOP OINT 15GM TOP SCH (09:33)
[2021-10-24] MEDS: OMEPRAZOLE 20MG CAP PO SCH (09:33)
[2021-10-24] MEDS ORDERED: INSULANT SC (10:44)
[2021-10-24 12:16] VITALS: BP 142/70
[2021-10-24] MEDS ORDERED: ASPI-551 PO (13:55)
== END 2021-10-24 14:27 | disposition home health service (06) | DRG 201 ==
LOC: EDBD 12:37 → M ED 12:37 → M ED INP 16:21 → ENRESERV 17:20 → M PCU 19:54
PROVIDERS: ADMIT Internal Medicine; ATTEND Internal Medicine
PROC: B246ZZZ Ultrasonography of Right and Left Heart (ICD-10-PCS; principal; 2021-10-23)
DX: R00.1 Bradycardia, unspecified (principal); I10 Essential (primary) hypertension; E11.42 Type 2 diabetes mellitus with diabetic polyneuropathy; E78.5 Hyperlipidemia, unspecified; K21.9 Gastro-esophageal reflux disease without esophagitis; R55 Syncope and collapse; Z96.651 Presence of right artificial knee joint; Z20.822 Contact with and (suspected) exposure to COVID-19; R68.0 Hypothermia, not associated with low environmental temperature; E87.2 Acidosis; N17.9 Acute kidney failure, unspecified; S02.2XXA Fracture of nasal bones, initial encounter for closed fracture; W01.0XXA Fall on same level from slipping, tripping and stumbling without subsequent striking against object, initial encounter; Y92.009 Unspecified place in unspecified non-institutional (private) residence as the place of occurrence of the external cause; Z86.73 Personal history of transient ischemic attack (TIA), and cerebral infarction without residual deficits; Z79.4 Long term (current) use of insulin; Z79.899 Other long term (current) drug therapy; Z88.1 Allergy status to other antibiotic agents; Z88.8 Allergy status to other drugs, medicaments and biological substances; I95.9 Hypotension, unspecified

== ENCOUNTER 2021-12-13 10:05 | Emergency (ER) | payer OTHER, SELFPAY ==
[~2021-12-13] VITALS: Ht 170.2 cm; Wt 87.5 kg
[~2021-12-13 10:05] MED LIST changes: +ASPI-551 PO; +CEPH500C PO; +NEOM28OI TOP; +POTA10TA17 PO
[2021-12-13 15:30] LABS: MEAN CORPUSCULAR HEMOGLOBIN 30.6 pg (27.0-33.0); MEAN CORPUSCULAR HGB CONC 33.3 g/dl (32.0-36.5); MEAN CORPUSCULAR VOLUME 91.7 fl (80.0-96.0); PLATELET COUNT, AUTOMATED 325 10^3/uL (150-450); RED BLOOD COUNT 4.58 10^6/uL (4.30-6.10); WHITE BLOOD COUNT 11.5 10^3/uL (4.0-10.0)
[2021-12-13] MEDS ORDERED: MORPHINE 2 MG/ML 1ML VIAL IV PRN (15:55)
[2021-12-13] MEDS ORDERED: niCARdipine IV 40 MG in IV 1 EA IV SCH (15:55)
[2021-12-13] MEDS ORDERED: NS IV ONE (15:55)
[2021-12-13] MEDS ORDERED: DESMOPRESSIN ACETATE IV ONE (15:55)
[2021-12-13 16:00] LABS: RSV AMPLIFICATION NEGATIVE (NEGATIVE)
[2021-12-13 16:08] LABS: INR 0.98; PROTHROMBIN TIME 13.4 SECONDS (12.7-14.5)
[2021-12-13 16:09] LABS: PARTIAL THROMBOPLASTIN TIME 33.1 SECONDS (25.9-37.0)
[2021-12-13 17:20] VITALS: BP 130/67
== END 2021-12-13 17:57 | disposition short-term general hospital (02) ==
LOC: M ED 10:05 → EDBD 10:05 → M ED 17:57
DX: I61.9 Nontraumatic intracerebral hemorrhage, unspecified (principal); E11.9 Type 2 diabetes mellitus without complications; I10 Essential (primary) hypertension; E78.5 Hyperlipidemia, unspecified; F17.200 Nicotine dependence, unspecified, uncomplicated; Z79.4 Long term (current) use of insulin; Z79.82 Long term (current) use of aspirin; Z79.899 Other long term (current) drug therapy; Z88.8 Allergy status to other drugs, medicaments and biological substances
CPT/HCPCS: 70450; 80047; 85027; 85610; 85730; 87631; 93005; 96365; 96368; 96375; 99285; J2270; J2597

== ENCOUNTER 2022-03-15 17:02 | Inpatient (IN) | payer OTHER ==
[~2022-03-15] VITALS: Ht 170.2 cm; Wt 86.4 kg
[~2022-03-15 17:02] MED LIST changes: +POTA-150 PO; -POTA10TA17 PO
[2022-03-15] MEDS ORDERED: ONDANSETRON 4MG 2ML VIAL IV ONE (20:05)
[2022-03-15] MEDS ORDERED: MORPHINE 4 MG/ML 1ML VIAL/SYRINGE IV ONE (20:05)
[2022-03-15] MEDS ORDERED: NS 1,000 ML IV SCH (20:10)
[2022-03-15 20:26] LABS: BASO % 0.2 % (0.0-1.0); HEMATOCRIT 42.2 % (42.0-52.0); LYMPH # 0.7 10^3/uL (1.5-5.0); LYMPH % 4.1 % (24.0-44.0); MEAN CORPUSCULAR HGB CONC 33.2 g/dl (32.0-36.5); MEAN CORPUSCULAR VOLUME 90.6 fl (80.0-96.0); MONO # 0.5 10^3/uL (0.0-0.8); MONO % 2.9 % (2.0-8.0); NEUTROPHILS # 16.4 10^3/uL (1.5-8.5); NEUTROPHILS % 92.3 % (36.0-66.0); PLATELET COUNT, AUTOMATED 335 10^3/uL (150-450); RED BLOOD COUNT 4.66 10^6/uL (4.30-6.10); WHITE BLOOD COUNT 17.8 10^3/uL (4.0-10.0)
[2022-03-15 21:06] LABS: ALT/SGPT 29 U/L (12-78); BILIRUBIN,DIRECT < 0.1 MG/DL (0.0-0.2); BILIRUBIN,TOTAL 0.3 MG/DL (0.2-1.0); BLOOD UREA NITROGEN 27 MG/DL (7-18); CALCIUM LEVEL 9.4 MG/DL (8.8-10.2); CARBON DIOXIDE LEVEL 23 MEQ/L (21-32); CHLORIDE LEVEL 109 MEQ/L (98-107); CREATININE FOR GFR 1.12 MG/DL (0.70-1.30); GLOMERULAR FILTRATION RATE > 60.0 (>49); GLUCOSE, FASTING 149 MG/DL (70-100); LIPASE 38 U/L (73-393); SODIUM LEVEL 142 MEQ/L (136-145); TOTAL PROTEIN 7.7 GM/DL (6.4-8.2)
[2022-03-15] MEDS ORDERED: ISOVUE-370 76% 100ML VIAL As Ordered ONE (21:11)
[2022-03-15] MEDS ORDERED: metroNIDAZOLE 500 MG in IV 1 EA IV ONE (22:10)
[2022-03-15] MEDS ORDERED: LevoFLOXacin IV 750 MG in IV 1 EA IV ONE (22:15)
[2022-03-15 23:48] LABS: RSV AMPLIFICATION NEGATIVE (NEGATIVE)
[2022-03-16] MEDS ORDERED: GLUCAGON INJ 1MG VIAL SC PRN (00:25)
[2022-03-16] MEDS ORDERED: GLUCOSE 4GM CHEW TABLET PO PRN (00:25)
[2022-03-16] MEDS ORDERED: MOM 30ML SUSPENSION UDC PO PRN (00:25)
[2022-03-16] MEDS ORDERED: DEXTROSE 50% 50 ML SYRINGE IV PRN (00:25)
[2022-03-16] MEDS ORDERED: MORPHINE 2 MG/ML 1ML VIAL IV PRN (00:35)
[2022-03-16] MEDS: NS 1,000 ML IV SCH ×2 (01:06→09:40)
[2022-03-16] MEDS: INSULIN LISPRO (NovoLOG) PER UNIT SC SCH ×3 (01:06→11:50)
[2022-03-16] MEDS ORDERED: VITA100T39 PO (03:36)
[2022-03-16] MEDS ORDERED: FERR32TA PO (03:36)
[2022-03-16] MEDS ORDERED: INSULANT SC (03:36)
[2022-03-16] MEDS ORDERED: KETO0.02 OU (03:36)
[2022-03-16] MEDS ORDERED: LIDO5OIN19 EXT (03:36)
[2022-03-16] MEDS ORDERED: HYDR-3490 PO (03:36)
[2022-03-16] MEDS ORDERED: REFR0.5D8 OU (03:36)
[2022-03-16] MEDS ORDERED: VITMTA PO (03:36)
[2022-03-16] MEDS ORDERED: CVS40GEL PO (03:36)
[2022-03-16] MEDS ORDERED: HOME MED LIST COMPLETE! XX SCH (03:40)
[2022-03-16] MEDS ORDERED: metroNIDAZOLE 500 MG in IV 1 EA IV SCH (06:00)
[2022-03-16] MEDS ORDERED: HEPARIN SOD (PORCINE) 5000UNITS/ML 1ML VIAL/SYRINGE SC SCH (06:00)
[2022-03-16 08:00] VITALS: BP 145/86
[2022-03-16 08:48] LABS: HEMATOCRIT 36.2 % (42.0-52.0); HEMOGLOBIN 12.1 g/dl (13.5-17.5); MEAN CORPUSCULAR HEMOGLOBIN 30.3 pg (27.0-33.0); MEAN CORPUSCULAR HGB CONC 33.4 g/dl (32.0-36.5); MEAN CORPUSCULAR VOLUME 90.7 fl (80.0-96.0); PLATELET COUNT, AUTOMATED 281 10^3/uL (150-450); RED BLOOD COUNT 3.99 10^6/uL (4.30-6.10); WHITE BLOOD COUNT 14.6 10^3/uL (4.0-10.0)
[2022-03-16 09:29] LABS: ALBUMIN 3.1 GM/DL (3.2-5.2); ALT/SGPT 22 U/L (12-78); BILIRUBIN,TOTAL 0.3 MG/DL (0.2-1.0); BLOOD UREA NITROGEN 25 MG/DL (7-18); CALCIUM LEVEL 8.5 MG/DL (8.8-10.2); CARBON DIOXIDE LEVEL 24 MEQ/L (21-32); CHLORIDE LEVEL 106 MEQ/L (98-107); CREATININE FOR GFR 0.86 MG/DL (0.70-1.30); GLOMERULAR FILTRATION RATE > 60.0 (>49); GLUCOSE, FASTING 135 MG/DL (70-100); POTASSIUM SERUM 3.2 MEQ/L (3.5-5.1); SODIUM LEVEL 138 MEQ/L (136-145); TOTAL PROTEIN 6.8 GM/DL (6.4-8.2)
[2022-03-16] MEDS ORDERED: ROSUVASTATIN 10 MG TAB (CRESTOR) PO SCH (12:20)
[2022-03-16] MEDS ORDERED: METR-265 PO ×2 (12:27→14:44)
[2022-03-16] MEDS ORDERED: CIPR-249 PO ×2 (12:27→14:44)
[2022-03-16 14:00] VITALS: BP 142/84
[2022-03-16] MEDS ORDERED: GABAPENTIN 400MG CAP PO SCH (16:00)
[2022-03-16] MEDS ORDERED: LevoFLOXacin IV 750 MG in IV 1 EA IV SCH (20:00)
[2022-03-16] MEDS ORDERED: OMEPRAZOLE 20MG CAP PO SCH (21:00)
[2022-03-16] MEDS ORDERED: FERROUS GLUCONATE 324 MG TAB PO SCH (21:00)
[2022-03-17] MEDS ORDERED: MULTIVITAMINS/MINERALS THERAP 1 TAB PO SCH (09:00)
== END 2022-03-16 15:20 | disposition home or self-care (01) | DRG 446 ==
LOC: M ED 17:02 → M ED INP 23:08 → ENRESERV 03-16 13:34
PROVIDERS: ADMIT Family Medicine; ATTEND Family Medicine
DX: K81.0 Acute cholecystitis (principal); I10 Essential (primary) hypertension; E78.5 Hyperlipidemia, unspecified; E11.42 Type 2 diabetes mellitus with diabetic polyneuropathy; K21.9 Gastro-esophageal reflux disease without esophagitis; F17.210 Nicotine dependence, cigarettes, uncomplicated; Z20.822 Contact with and (suspected) exposure to COVID-19; Z79.4 Long term (current) use of insulin; Z79.899 Other long term (current) drug therapy; Z88.1 Allergy status to other antibiotic agents; Z88.8 Allergy status to other drugs, medicaments and biological substances; D72.829 Elevated white blood cell count, unspecified; E87.6 Hypokalemia

== ENCOUNTER 2022-03-22 12:25 | Inpatient (IN) | payer OTHER ==
[~2022-03-22] VITALS: Ht 170.2 cm; Wt 81.1 kg
[~2022-03-22 12:25] MED LIST changes: +CVS40GEL PO; +FERR32TA PO; +LIDO5OIN19 EXT; +METR-265 PO; +REFR0.5D8 OU; +VITA100T39 PO; +VITMTA PO
[2022-03-22 15:59] LABS: BASO # 0.1 10^3/uL (0.0-0.2); BASO % 0.3 % (0.0-1.0); EOS % 0.2 % (0.0-3.0); HEMATOCRIT 39.6 % (42.0-52.0); HEMOGLOBIN 13.3 g/dl (13.5-17.5); LYMPH # 1.6 10^3/uL (1.5-5.0); LYMPH % 8.7 % (24.0-44.0); MEAN CORPUSCULAR HGB CONC 33.6 g/dl (32.0-36.5); MEAN CORPUSCULAR VOLUME 89.4 fl (80.0-96.0); MONO # 0.8 10^3/uL (0.0-0.8); MONO % 4.2 % (2.0-8.0); NEUTROPHILS # 15.4 10^3/uL (1.5-8.5); NEUTROPHILS % 85.8 % (36.0-66.0); PLATELET COUNT, AUTOMATED 340 10^3/uL (150-450); RED BLOOD COUNT 4.43 10^6/uL (4.30-6.10); WHITE BLOOD COUNT 17.9 10^3/uL (4.0-10.0)
[2022-03-22] MEDS ORDERED: MORPHINE 4 MG/ML 1ML VIAL/SYRINGE IV ONE ×2 (16:15→22:40)
[2022-03-22] MEDS ORDERED: METOCLOPRAMIDE INJ 10MG/2ML VIAL (J2765 PER 1) IV ONE (16:15)
[2022-03-22 16:22] LABS: APPEARANCE, URINE MANUAL CLEAR (CLEAR); BILIRUBIN, URINE MANUAL NEGATIVE (NEGATIVE); BLOOD URINE MANUAL NEGATIVE (NEGATIVE); COLOR, URINE MANUAL YELLOW (YELLOW); GLUCOSE, URINE (UA) MANUAL 4+(1000 MG/DL) mg/dL (NEGATIVE); KETONE, URINE MANUAL NEGATIVE (NEGATIVE); LEUKOCYTE ESTERASE, URINE MAN TRACE (NEGATIVE); NITRITE, URINE MANUAL NEGATIVE (NEGATIVE); PROTEIN, URINE MANUAL TRACE mg/dL (NEGATIVE); UROBILINOGEN, URINE MANUAL NORMAL (NORMAL)
[2022-03-22 16:50] LABS: RBC, URINE 0-1 /hpf (0-3); WBC, URINE 0-1 /hpf (0-3)
[2022-03-22 16:51] LABS: BACTERIA, URINE NONE SEEN; SQUAMOUS EPITHELIAL CELL URINE SMALL AMOUNT /hpf (SMALL AMT)
[2022-03-22 18:21] LABS: CK-MB VALUE MASS 3.1 NG/ML (<3.6); MB/CK RELATIVE INDEX 3.1 (< OR =4)
[2022-03-22 19:33] LABS: ALBUMIN 3.2 GM/DL (3.2-5.2); ALT/SGPT 113 U/L (12-78); BILIRUBIN,DIRECT 0.7 MG/DL (0.0-0.2); BLOOD UREA NITROGEN 20 MG/DL (7-18); CALCIUM LEVEL 8.6 MG/DL (8.8-10.2); CARBON DIOXIDE LEVEL 28 MEQ/L (21-32); CHLORIDE LEVEL 100 MEQ/L (98-107); CREATININE FOR GFR 1.15 MG/DL (0.70-1.30); GLOMERULAR FILTRATION RATE > 60.0 (>49); GLUCOSE, FASTING 317 MG/DL (70-100); SODIUM LEVEL 136 MEQ/L (136-145); TOTAL PROTEIN 7.1 GM/DL (6.4-8.2)
[2022-03-22] MEDS ORDERED: NS 1,000 ML IV ONE (20:15)
[2022-03-22] MEDS ORDERED: HumuLIN R (REGULAR) INSULIN (NovoLIN R) **100U/ML** PER UNIT IV ONE (20:15)
[2022-03-22 21:33] LABS: LIPASE 495 U/L (73-393)
[2022-03-22] MEDS ORDERED: metroNIDAZOLE 500 MG in IV 1 EA IV ONE (22:55)
[2022-03-22] MEDS ORDERED: CIPROFLOXACIN 400 MG in IV 1 EA IV ONE (22:55)
[2022-03-22 23:59] LABS: RSV AMPLIFICATION NEGATIVE (NEGATIVE)
[2022-03-23] MEDS ORDERED: GLUCOSE 4GM CHEW TABLET PO PRN (00:40)
[2022-03-23] MEDS ORDERED: GLUCAGON INJ 1MG VIAL SC PRN (00:40)
[2022-03-23] MEDS ORDERED: DEXTROSE 50% 50 ML SYRINGE IV PRN (00:40)
[2022-03-23] MEDS ORDERED: MORPHINE 4 MG/ML 1ML VIAL/SYRINGE IV PRN (00:40)
[2022-03-23] MEDS ORDERED: UNRESOLVED CLARIFICATION ENTRY XX STA (00:51)
[2022-03-23] MEDS ORDERED: LOSA50TA28 PO (00:59)
[2022-03-23] MEDS ORDERED: GLUC1KIT IM (00:59)
[2022-03-23] MEDS ORDERED: NYST-13 EXT (00:59)
[2022-03-23] MEDS ORDERED: VITS42.53 EXT (00:59)
[2022-03-23] MEDS ORDERED: ONDANSETRON 4MG 2ML VIAL IV ONE ×2 (01:00→04:00)
[2022-03-23] MEDS ORDERED: HOME MED LIST COMPLETE! XX SCH (01:00)
[2022-03-23] MEDS: LR 1,000 ML IV SCH ×3 (01:24→16:53)
[2022-03-23] MEDS ORDERED: POLYVINYL ALCOHOL OPHTH SOLN 15 ML(LIQUITEARS) OU PRN (02:00)
[2022-03-23] MEDS ORDERED: hydrALAZINE 20MG/ML 1ML VIAL (J0360 PER 20MG) IV PRN (05:00)
[2022-03-23] MEDS ORDERED: MORPHINE 2 MG/ML 1ML VIAL IV ONE (05:00)
[2022-03-23] MEDS: KETOROLAC 30 MG/ML 1ML VIAL IV PRN ×2 (06:34→20:01)
[2022-03-23] MEDS ORDERED: CIPROFLOXACIN 400 MG in IV 1 EA IV SCH (07:00)
[2022-03-23 07:16] LABS: BASO # 0.1 10^3/uL (0.0-0.2); BASO % 0.3 % (0.0-1.0); EOS % 0.2 % (0.0-3.0); HEMATOCRIT 38.2 % (42.0-52.0); HEMOGLOBIN 12.7 g/dl (13.5-17.5); LYMPH # 1.8 10^3/uL (1.5-5.0); LYMPH % 8.5 % (24.0-44.0); MEAN CORPUSCULAR HEMOGLOBIN 29.6 pg (27.0-33.0); MEAN CORPUSCULAR HGB CONC 33.2 g/dl (32.0-36.5); MONO # 1.4 10^3/uL (0.0-0.8); MONO % 6.7 % (2.0-8.0); NEUTROPHILS # 17.6 10^3/uL (1.5-8.5); NEUTROPHILS % 83.4 % (36.0-66.0); PLATELET COUNT, AUTOMATED 317 10^3/uL (150-450); RED BLOOD COUNT 4.29 10^6/uL (4.30-6.10); WHITE BLOOD COUNT 21.1 10^3/uL (4.0-10.0)
[2022-03-23] MEDS: INSULIN LISPRO (NovoLOG) PER UNIT SC SCH ×4 (07:19→16:52)
[2022-03-23 07:28] LABS: INR 1.08; PARTIAL THROMBOPLASTIN TIME 31.6 SECONDS (24.8-34.2); PROTHROMBIN TIME 14.2 SECONDS (12.5-14.5)
[2022-03-23 07:57] LABS: BLOOD UREA NITROGEN 19 MG/DL (7-18); CALCIUM LEVEL 8.5 MG/DL (8.8-10.2); CARBON DIOXIDE LEVEL 28 MEQ/L (21-32); CHLORIDE LEVEL 99 MEQ/L (98-107); CREATININE FOR GFR 0.86 MG/DL (0.70-1.30); GLOMERULAR FILTRATION RATE > 60.0 (>49); GLUCOSE, FASTING 210 MG/DL (70-100); LIPASE 182 U/L (73-393); MAGNESIUM LEVEL 1.8 MG/DL (1.8-2.4); POTASSIUM SERUM 3.4 MEQ/L (3.5-5.1); SODIUM LEVEL 135 MEQ/L (136-145)
[2022-03-23] MEDS: metroNIDAZOLE 500 MG in IV 1 EA IV SCH ×2 (07:57→16:53)
[2022-03-23] MEDS: MULTIVITAMINS/MINERALS THERAP 1 TAB PO SCH (09:17)
[2022-03-23] MEDS: MOM 30ML SUSPENSION UDC PO SCH ×2 (09:17→20:01)
[2022-03-23] MEDS: LOSARTAN 50MG TABLET PO SCH (09:17)
[2022-03-23] MEDS: GABAPENTIN 400MG CAP PO SCH ×4 (09:17→20:01)
[2022-03-23] MEDS: LevoFLOXacin IV 750 MG in IV 1 EA IV SCH (11:07)
[2022-03-23] MEDS: MORPHINE 4 MG/ML 1ML VIAL/SYRINGE IV PRN ×2 (13:17→16:53)
[2022-03-23 13:35] VITALS: BP 158/98
[2022-03-23 19:24] VITALS: BP 158/102
[2022-03-23 21:34] VITALS: BP 108/76
[2022-03-24] VITALS (8 sets, daily range): BP systolic 123–151; BP diastolic 68–95
[2022-03-24] MEDS: metroNIDAZOLE 500 MG in IV 1 EA IV SCH ×3 (00:08→16:00)
[2022-03-24] MEDS: INSULIN LISPRO (NovoLOG) PER UNIT SC SCH ×4 (00:09→17:44)
[2022-03-24 07:18] LABS: HEMATOCRIT 38.8 % (42.0-52.0); HEMOGLOBIN 12.8 g/dl (13.5-17.5); MEAN CORPUSCULAR VOLUME 90.9 fl (80.0-96.0); PLATELET COUNT, AUTOMATED 311 10^3/uL (150-450); RED BLOOD COUNT 4.27 10^6/uL (4.30-6.10); WHITE BLOOD COUNT 22.3 10^3/uL (4.0-10.0)
[2022-03-24 07:54] LABS: ALBUMIN 2.7 GM/DL (3.2-5.2); CALCIUM LEVEL 8.1 MG/DL (8.8-10.2); CREATININE FOR GFR 1.35 MG/DL (0.70-1.30); GLOMERULAR FILTRATION RATE 56.6 (>49); POTASSIUM SERUM 3.8 MEQ/L (3.5-5.1); TOTAL PROTEIN 5.8 GM/DL (6.4-8.2)
[2022-03-24 07:58] LABS: ATYPICAL LYMPH 1 % (0-5); EOSINOPHILS 1 % (0-3); LYMPHOCYTES 8 % (16-44); METAMYELOCYTES 2 % (0-0); MONOCYTES 2 % (0-5); NEUTROPHILS 76 % (28-66); PLATELET ESTIMATE NORMAL (NORMAL)
[2022-03-24 07:59] LABS: ANISOCYTOSIS 1+
[2022-03-24] MEDS: LOSARTAN 50MG TABLET PO SCH (08:32)
[2022-03-24] MEDS: MULTIVITAMINS/MINERALS THERAP 1 TAB PO SCH (08:32)
[2022-03-24] MEDS: GABAPENTIN 400MG CAP PO SCH ×4 (08:32→21:57)
[2022-03-24] MEDS: FERROUS GLUCONATE 324 MG TAB PO SCH (08:32)
[2022-03-24] MEDS: KETOROLAC 30 MG/ML 1ML VIAL IV PRN (08:32)
[2022-03-24 09:42] LABS: BILIRUBIN,DIRECT 3.2 MG/DL (0.0-0.2)
[2022-03-24] MEDS: MORPHINE 4 MG/ML 1ML VIAL/SYRINGE IV PRN ×2 (11:18→22:06)
[2022-03-24] MEDS: LevoFLOXacin IV 750 MG in IV 1 EA IV SCH (11:18)
[2022-03-24] MEDS: ONDANSETRON 4MG 2ML VIAL IV PRN (14:19)
[2022-03-24] MEDS: LR 1,000 ML IV SCH (14:20)
[2022-03-24] MEDS ORDERED: LIDOCAINE 1% SDV 30ML VIAL As Ordered ONE (16:24)
[2022-03-24] MEDS ORDERED: BUPIVACAINE HCL 0.25% 30ML VIAL As Ordered ONE (16:25)
[2022-03-24] MEDS ORDERED: MIDAZOLAM INJ 2MG/2ML VIAL (J2250 PER 1MG) As Ordered ONE (16:32)
[2022-03-24] MEDS ORDERED: fentaNYL 100 MCG/2 ML INJECTION As Ordered ONE ×2 (16:32→17:56)
[2022-03-24] MEDS ORDERED: propofoL 200 MG/20 ML VIAL As Ordered ONE (16:32)
[2022-03-24] MEDS ORDERED: ONDANSETRON 4MG 2ML VIAL As Ordered ONE (16:33)
[2022-03-24] MEDS ORDERED: LIDOCAINE 2% 100MG/5ML SDV (FOR ANES.) As Ordered ONE (16:33)
[2022-03-24] MEDS ORDERED: dexameTHASONE 4 MG/ML 1ML VIAL (J1100 PER 1MG) As Ordered ONE (16:33)
[2022-03-24] MEDS ORDERED: ROCURONIUM BROMIDE 50 MG/5 ML VIAL As Ordered ONE (16:33)
[2022-03-24] MEDS ORDERED: INDOCYANINE GREEN 25MG VIAL (IC-GREEN) As Ordered ONE (16:34)
[2022-03-24] MEDS ORDERED: PHENYLephrine 500MCG 5ML (100MCG/ML) SYRINGE As Ordered ONE (17:13)
[2022-03-24] MEDS ORDERED: PHENYLEPHRINE 10MG/ML 1ML VIAL As Ordered ONE (17:16)
[2022-03-24] MEDS ORDERED: SUGAMMADEX SODIUM 500 MG/5 ML VIAL (BRIDION) As Ordered ONE (17:39)
[2022-03-24] MEDS ORDERED: metroNIDAZOLE/NACL 500MG(5MG/ML) 100ML BAG As Ordered ONE (17:45)
[2022-03-24] MEDS ORDERED: METOCLOPRAMIDE INJ 10MG/2ML VIAL (J2765 PER 1) As Ordered ONE (18:55)
[2022-03-24] MEDS ORDERED: fentaNYL 100 MCG/2 ML INJECTION IV PRN (19:20)
[2022-03-24] MEDS ORDERED: METOCLOPRAMIDE INJ 10MG/2ML VIAL (J2765 PER 1) IV PRN (19:20)
[2022-03-24] MEDS ORDERED: ONDANSETRON 4MG 2ML VIAL IV PRN (19:20)
[2022-03-24] MEDS ORDERED: LR 1,000 ML IV SCH (19:20)
[2022-03-24] MEDS ORDERED: oxyCODONE 5MG TAB PO PRN (19:20)
[2022-03-24] MEDS ORDERED: HYDROMORPHONE HCL 0.5 MG/ 0.5 ML SYRINGE (J1170 PER 1) IV PRN (19:20)
[2022-03-25] MEDS: INSULIN LISPRO (NovoLOG) PER UNIT SC SCH ×5 (00:29→20:42)
[2022-03-25] MEDS: metroNIDAZOLE 500 MG in IV 1 EA IV SCH ×4 (00:29→23:42)
[2022-03-25] MEDS: ACETAMINOPHEN TAB 650MG DOSE (2X325MG) PO PRN ×2 (00:39→09:07)
[2022-03-25 01:15] VITALS: BP 128/87
[2022-03-25] MEDS: MORPHINE 4 MG/ML 1ML VIAL/SYRINGE IV PRN ×3 (02:39→16:40)
[2022-03-25] MEDS: PROCHLORPERAZINE 10MG 2ML VIAL IV PRN ×2 (02:53→11:14)
[2022-03-25] MEDS: LR 1,000 ML IV SCH ×3 (05:48→23:42)
[2022-03-25 05:54] VITALS: BP 124/86
[2022-03-25 06:50] LABS: HEMATOCRIT 35.6 % (42.0-52.0); HEMOGLOBIN 11.9 g/dl (13.5-17.5); MEAN CORPUSCULAR HEMOGLOBIN 29.8 pg (27.0-33.0); MEAN CORPUSCULAR HGB CONC 33.4 g/dl (32.0-36.5); PLATELET COUNT, AUTOMATED 290 10^3/uL (150-450); WHITE BLOOD COUNT 16.1 10^3/uL (4.0-10.0)
[2022-03-25 08:31] LABS: ALBUMIN 2.3 GM/DL (3.2-5.2); BILIRUBIN,TOTAL 5.2 MG/DL (0.2-1.0); CALCIUM LEVEL 7.8 MG/DL (8.8-10.2); CREATININE FOR GFR 1.29 MG/DL (0.70-1.30); GLOMERULAR FILTRATION RATE 59.7 (>49); POTASSIUM SERUM 4.1 MEQ/L (3.5-5.1); TOTAL PROTEIN 5.5 GM/DL (6.4-8.2)
[2022-03-25] MEDS: GABAPENTIN 400MG CAP PO SCH ×4 (08:40→20:42)
[2022-03-25] MEDS: FERROUS GLUCONATE 324 MG TAB PO SCH (08:41)
[2022-03-25] MEDS: MULTIVITAMINS/MINERALS THERAP 1 TAB PO SCH (08:41)
[2022-03-25] MEDS: LevoFLOXacin IV 750 MG in IV 1 EA IV SCH (11:05)
[2022-03-25] MEDS: ONDANSETRON 4MG 2ML VIAL IV PRN (12:51)
[2022-03-25 13:35] VITALS: O2SAT 91
[2022-03-25 20:35] VITALS: BP 126/82
[2022-03-26] MEDS: ONDANSETRON 4MG 2ML VIAL IV PRN (00:38)
[2022-03-26] MEDS: MORPHINE 4 MG/ML 1ML VIAL/SYRINGE IV PRN (00:39)
[2022-03-26 06:01] VITALS: BP 156/98
[2022-03-26] MEDS: PROCHLORPERAZINE 10MG 2ML VIAL IV PRN ×2 (06:55→18:23)
[2022-03-26 07:03] LABS: HEMATOCRIT 34.9 % (42.0-52.0); HEMOGLOBIN 11.8 g/dl (13.5-17.5); MEAN CORPUSCULAR HEMOGLOBIN 29.8 pg (27.0-33.0); MEAN CORPUSCULAR HGB CONC 33.8 g/dl (32.0-36.5); MEAN CORPUSCULAR VOLUME 88.1 fl (80.0-96.0); PLATELET COUNT, AUTOMATED 291 10^3/uL (150-450); RED BLOOD COUNT 3.96 10^6/uL (4.30-6.10); WHITE BLOOD COUNT 20.3 10^3/uL (4.0-10.0)
[2022-03-26 07:29] LABS: ALBUMIN 2.1 GM/DL (3.2-5.2); ALT/SGPT 106 U/L (12-78); BILIRUBIN,TOTAL 3.4 MG/DL (0.2-1.0); BLOOD UREA NITROGEN 35 MG/DL (7-18); CALCIUM LEVEL 7.8 MG/DL (8.8-10.2); CARBON DIOXIDE LEVEL 29 MEQ/L (21-32); CHLORIDE LEVEL 95 MEQ/L (98-107); CREATININE FOR GFR 0.98 MG/DL (0.70-1.30); GLOMERULAR FILTRATION RATE > 60.0 (>49); GLUCOSE, FASTING 312 MG/DL (70-100); POTASSIUM SERUM 3.9 MEQ/L (3.5-5.1); SODIUM LEVEL 130 MEQ/L (136-145); TOTAL PROTEIN 5.5 GM/DL (6.4-8.2)
[2022-03-26] MEDS ORDERED: KETOROLAC 30 MG/ML 1ML VIAL IV PRN (07:50)
[2022-03-26] MEDS: INSULIN LISPRO (NovoLOG) PER UNIT SC SCH ×4 (09:02→20:55)
[2022-03-26] MEDS: metroNIDAZOLE 500 MG in IV 1 EA IV SCH ×3 (09:03→22:59)
[2022-03-26] MEDS: MULTIVITAMINS/MINERALS THERAP 1 TAB PO SCH (09:03)
[2022-03-26] MEDS: GABAPENTIN 400MG CAP PO SCH ×4 (09:03→20:12)
[2022-03-26] MEDS: FERROUS GLUCONATE 324 MG TAB PO SCH (09:03)
[2022-03-26] MEDS: LR 1,000 ML IV SCH ×2 (11:21→22:58)
[2022-03-26] MEDS: LevoFLOXacin IV 750 MG in IV 1 EA IV SCH (11:21)
[2022-03-26 14:00] VITALS: BP 150/95
[2022-03-26 20:08] VITALS: BP 146/93
[2022-03-26] MEDS: ACETAMINOPHEN TAB 650MG DOSE (2X325MG) PO PRN (20:12)
[2022-03-27] MEDS ORDERED: **hydrALAZINE** 10 MG TAB PO PRN (02:50)
[2022-03-27] MEDS: ACETAMINOPHEN TAB 650MG DOSE (2X325MG) PO PRN ×2 (04:03→20:24)
[2022-03-27 06:00] VITALS: BP 130/82
[2022-03-27] MEDS ORDERED: ONDANSETRON 4MG TAB PO PRN (06:00)
[2022-03-27 06:25] LABS: HEMATOCRIT 33.3 % (42.0-52.0); HEMOGLOBIN 11.6 g/dl (13.5-17.5); MEAN CORPUSCULAR HEMOGLOBIN 30.2 pg (27.0-33.0); MEAN CORPUSCULAR HGB CONC 34.8 g/dl (32.0-36.5); MEAN CORPUSCULAR VOLUME 86.7 fl (80.0-96.0); PLATELET COUNT, AUTOMATED 283 10^3/uL (150-450); RED BLOOD COUNT 3.84 10^6/uL (4.30-6.10); WHITE BLOOD COUNT 20.5 10^3/uL (4.0-10.0)
[2022-03-27 07:10] LABS: ALT/SGPT 101 U/L (12-78); BILIRUBIN,DIRECT 2.1 MG/DL (0.0-0.2); BILIRUBIN,TOTAL 2.6 MG/DL (0.2-1.0); BLOOD UREA NITROGEN 29 MG/DL (7-18); CALCIUM LEVEL 7.5 MG/DL (8.8-10.2); CARBON DIOXIDE LEVEL 26 MEQ/L (21-32); CHLORIDE LEVEL 97 MEQ/L (98-107); CREATININE FOR GFR 0.84 MG/DL (0.70-1.30); GLOMERULAR FILTRATION RATE > 60.0 (>49); GLUCOSE, FASTING 296 MG/DL (70-100); POTASSIUM SERUM 3.7 MEQ/L (3.5-5.1); SODIUM LEVEL 132 MEQ/L (136-145); TOTAL PROTEIN 5.1 GM/DL (6.4-8.2)
[2022-03-27] MEDS: INSULIN LISPRO (NovoLOG) PER UNIT SC SCH ×4 (07:30→20:24)
[2022-03-27] MEDS: metroNIDAZOLE 500 MG in IV 1 EA IV SCH ×3 (08:24→23:24)
[2022-03-27] MEDS: MULTIVITAMINS/MINERALS THERAP 1 TAB PO SCH (08:24)
[2022-03-27] MEDS: FERROUS GLUCONATE 324 MG TAB PO SCH (08:24)
[2022-03-27] MEDS: OMEPRAZOLE 20MG CAP PO SCH ×2 (08:24→20:24)
[2022-03-27] MEDS: GABAPENTIN 400MG CAP PO SCH ×4 (08:24→20:24)
[2022-03-27] MEDS: LR 1,000 ML IV SCH ×3 (08:24→20:25)
[2022-03-27] MEDS: GASTROGRAFIN SOLUTION 30ML PO SCH ×2 (09:10→09:35)
[2022-03-27] MEDS ORDERED: ISOVUE-370 76% 100ML VIAL As Ordered ONE (10:26)
[2022-03-27] MEDS: LevoFLOXacin IV 750 MG in IV 1 EA IV SCH (11:13)
[2022-03-27 14:00] VITALS: BP 142/90
[2022-03-27 20:03] VITALS: BP 143/90
[2022-03-28 05:38] VITALS: BP 142/90
[2022-03-28 07:40] LABS: HEMATOCRIT 31.9 % (42.0-52.0); HEMOGLOBIN 11.2 g/dl (13.5-17.5); MEAN CORPUSCULAR HEMOGLOBIN 30.1 pg (27.0-33.0); MEAN CORPUSCULAR HGB CONC 35.1 g/dl (32.0-36.5); MEAN CORPUSCULAR VOLUME 85.8 fl (80.0-96.0); PLATELET COUNT, AUTOMATED 324 10^3/uL (150-450); RED BLOOD COUNT 3.72 10^6/uL (4.30-6.10)
[2022-03-28 08:26] LABS: ALT/SGPT 75 U/L (12-78); BILIRUBIN,DIRECT 1.4 MG/DL (0.0-0.2); BILIRUBIN,TOTAL 1.8 MG/DL (0.2-1.0); BLOOD UREA NITROGEN 20 MG/DL (7-18); CALCIUM LEVEL 7.5 MG/DL (8.8-10.2); CARBON DIOXIDE LEVEL 25 MEQ/L (21-32); CHLORIDE LEVEL 100 MEQ/L (98-107); GLOMERULAR FILTRATION RATE > 60.0 (>49); GLUCOSE, FASTING 273 MG/DL (70-100); POTASSIUM SERUM 3.6 MEQ/L (3.5-5.1); SODIUM LEVEL 133 MEQ/L (136-145)
[2022-03-28] MEDS: FERROUS GLUCONATE 324 MG TAB PO SCH (08:32)
[2022-03-28] MEDS: OMEPRAZOLE 20MG CAP PO SCH ×2 (08:32→20:38)
[2022-03-28] MEDS: metroNIDAZOLE 500 MG in IV 1 EA IV SCH (08:32)
[2022-03-28] MEDS: GABAPENTIN 400MG CAP PO SCH ×4 (08:32→20:38)
[2022-03-28] MEDS: INSULIN LISPRO (NovoLOG) PER UNIT SC SCH ×4 (08:32→20:38)
[2022-03-28] MEDS: MULTIVITAMINS/MINERALS THERAP 1 TAB PO SCH (08:33)
[2022-03-28 09:08] LABS: HEPATITIS B SURFACE ANTIGEN NEGATIVE (NEGATIVE)
[2022-03-28 09:39] LABS: HEPATITIS B CORE ANTIBODY IGM NEGATIVE (NEGATIVE); HEPATITIS C VIRUS ABY INDEX < 0.0 INDEX (<0.8)
[2022-03-28] MEDS: LevoFLOXacin IV 750 MG in IV 1 EA IV SCH (11:22)
[2022-03-28 14:00] VITALS: BP 155/96
[2022-03-28] MEDS: metroNIDAZOLE (FLAGYL) 500MG TABLET PO SCH ×2 (15:23→20:39)
[2022-03-28] MEDS: LR 1,000 ML IV SCH (18:32)
[2022-03-28 22:00] VITALS: BP 145/90
[2022-03-29 06:00] VITALS: BP 131/89
[2022-03-29] MEDS ORDERED: LevoFLOXacin 750 MG TABLET PO SCH (06:00)
[2022-03-29 06:13] LABS: HEMATOCRIT 32.1 % (42.0-52.0); HEMOGLOBIN 11.5 g/dl (13.5-17.5); MEAN CORPUSCULAR HEMOGLOBIN 30.4 pg (27.0-33.0); MEAN CORPUSCULAR HGB CONC 35.8 g/dl (32.0-36.5); MEAN CORPUSCULAR VOLUME 84.9 fl (80.0-96.0); PLATELET COUNT, AUTOMATED 330 10^3/uL (150-450); RED BLOOD COUNT 3.78 10^6/uL (4.30-6.10); WHITE BLOOD COUNT 17.8 10^3/uL (4.0-10.0)
[2022-03-29] MEDS: metroNIDAZOLE (FLAGYL) 500MG TABLET PO SCH ×2 (06:45→13:01)
[2022-03-29] MEDS: LR 1,000 ML IV SCH (06:46)
[2022-03-29 07:19] LABS: ALBUMIN 2.1 GM/DL (3.2-5.2); ALT/SGPT 63 U/L (12-78); BILIRUBIN,DIRECT 1.2 MG/DL (0.0-0.2); BILIRUBIN,TOTAL 1.6 MG/DL (0.2-1.0); BLOOD UREA NITROGEN 21 MG/DL (7-18); CALCIUM LEVEL 7.6 MG/DL (8.8-10.2); CARBON DIOXIDE LEVEL 25 MEQ/L (21-32); CHLORIDE LEVEL 100 MEQ/L (98-107); CREATININE FOR GFR 0.92 MG/DL (0.70-1.30); GLOMERULAR FILTRATION RATE > 60.0 (>49); GLUCOSE, FASTING 336 MG/DL (70-100); POTASSIUM SERUM 3.5 MEQ/L (3.5-5.1); SODIUM LEVEL 135 MEQ/L (136-145); TOTAL PROTEIN 5.2 GM/DL (6.4-8.2)
[2022-03-29] MEDS: INSULIN LISPRO (NovoLOG) PER UNIT SC SCH ×2 (08:06→11:42)
[2022-03-29] MEDS: GABAPENTIN 400MG CAP PO SCH ×2 (08:06→13:01)
[2022-03-29] MEDS: MULTIVITAMINS/MINERALS THERAP 1 TAB PO SCH (08:06)
[2022-03-29] MEDS: OMEPRAZOLE 20MG CAP PO SCH (08:06)
[2022-03-29] MEDS: FERROUS GLUCONATE 324 MG TAB PO SCH (08:06)
[2022-03-29] MEDS ORDERED: METR-265 PO (11:18)
[2022-03-29] MEDS ORDERED: ACET1TAB55 PO (11:18)
[2022-03-29] MEDS ORDERED: LEVO1TAB40 PO (11:18)
[2022-03-29] MEDS ORDERED: INSULIN LISPRO (NovoLOG) PER UNIT SC STA (13:31)
[2022-03-29 14:21] VITALS: BP 134/90
[2022-03-30] MEDS ORDERED: LEVO1TAB40 PO (15:45)
[2022-03-30] MEDS ORDERED: METR-265 PO (15:45)
[2022-03-30] MEDS ORDERED: ACET1TAB55 PO (15:45)
== END 2022-03-29 16:30 | disposition home or self-care (01) | DRG 418 ==
LOC: M ED 12:25 → EDBD 12:25 → M ED INP 03-23 00:37 → M MS5PR 03-23 13:30
PROVIDERS: ADMIT Internal Medicine; ATTEND Student in an Organized Health Care Education/Training Program
PROC: 8E0W4CZ Robotic Assisted Procedure of Trunk Region, Percutaneous Endoscopic Approach (ICD-10-PCS; 2022-03-24)
PROC: 0FT44ZZ Resection of Gallbladder, Percutaneous Endoscopic Approach (ICD-10-PCS; principal; 2022-03-24 13:30)
DX: K81.0 Acute cholecystitis (principal); K56.7 Ileus, unspecified; E87.1 Hypo-osmolality and hyponatremia; N17.9 Acute kidney failure, unspecified; I10 Essential (primary) hypertension; E11.40 Type 2 diabetes mellitus with diabetic neuropathy, unspecified; K21.9 Gastro-esophageal reflux disease without esophagitis; E78.5 Hyperlipidemia, unspecified; Z79.4 Long term (current) use of insulin; N20.0 Calculus of kidney; Z88.8 Allergy status to other drugs, medicaments and biological substances; Z79.899 Other long term (current) drug therapy; M19.90 Unspecified osteoarthritis, unspecified site; Z96.651 Presence of right artificial knee joint; F17.210 Nicotine dependence, cigarettes, uncomplicated

== ENCOUNTER 2022-08-29 10:16 | Emergency (ER) | payer OTHER ==
[~2022-08-29] VITALS: Ht 170.2 cm; Wt 90.3 kg
[~2022-08-29 10:16] MED LIST changes: +GLUC1KIT IM; -KETO0.02 OU; +KETO5DRO33 OU; +LEVO1TAB40 PO; +NYST-13 EXT; -POTA10CA32 PO; +POTA10CA33 PO; +VITS42.53 EXT
[2022-08-29 11:59] LABS: BASO # 0.1 10^3/uL (0.0-0.2); BASO % 0.6 % (0.0-1.0); EOS # 0.3 10^3/uL (0.0-0.5); EOS % 2.7 % (0.0-3.0); HEMATOCRIT 45.4 % (42.0-52.0); HEMOGLOBIN 15.2 g/dl (13.5-17.5); LYMPH # 2.3 10^3/uL (1.5-5.0); LYMPH % 21.2 % (24.0-44.0); MEAN CORPUSCULAR HEMOGLOBIN 30.2 pg (27.0-33.0); MEAN CORPUSCULAR HGB CONC 33.5 g/dl (32.0-36.5); MEAN CORPUSCULAR VOLUME 90.3 fl (80.0-96.0); MONO # 0.7 10^3/uL (0.0-0.8); MONO % 6.8 % (2.0-8.0); NEUTROPHILS # 7.4 10^3/uL (1.5-8.5); NEUTROPHILS % 68.3 % (36.0-66.0); PLATELET COUNT, AUTOMATED 304 10^3/uL (150-450); RED BLOOD COUNT 5.03 10^6/uL (4.30-6.10); WHITE BLOOD COUNT 10.8 10^3/uL (4.0-10.0)
[2022-08-29 12:25] LABS: LIPASE 39 U/L (12-53)
[2022-08-29 12:27] LABS: ALKALINE PHOSPHATASE 98 U/L (46-116); ALT/SGPT 35 U/L (7.0-40); AST/SGOT 31 U/L (<34); BILIRUBIN,DIRECT 0.2 MG/DL (<0.4); BILIRUBIN,TOTAL 0.4 MG/DL (0.3-1.2); BLOOD UREA NITROGEN 27 MG/DL (9-23); CALCIUM LEVEL 9.1 MG/DL (8.3-10.6); CARBON DIOXIDE LEVEL 30 MMOL/L (20-31); CHLORIDE LEVEL 105 MMOL/L (98-107); CREATININE FOR GFR 1.04 MG/DL (0.70-1.30); GLOMERULAR FILTRATION RATE > 60.0 (>49); GLUCOSE, FASTING 99 MG/DL (74-106); POTASSIUM SERUM 4.8 MMOL/L (3.5-5.1); SODIUM LEVEL 140 MMOL/L (136-145); TOTAL PROTEIN 7.2 G/DL (5.7-8.2)
[2022-08-29 12:46] VITALS: BP 141/68
== END 2022-08-29 12:46 | disposition home or self-care (01) ==
LOC: M ED 10:16
DX: R10.9 Unspecified abdominal pain (principal); E11.9 Type 2 diabetes mellitus without complications; I10 Essential (primary) hypertension; K21.9 Gastro-esophageal reflux disease without esophagitis; Z87.442 Personal history of urinary calculi; F17.200 Nicotine dependence, unspecified, uncomplicated; Z79.4 Long term (current) use of insulin; Z79.899 Other long term (current) drug therapy; Z88.8 Allergy status to other drugs, medicaments and biological substances

== ENCOUNTER 2023-11-01 07:55 | Day surgery (SDC) | payer MEDICARE, OTHER ==
[~2023-11-01] VITALS: Ht 170.2 cm; Wt 90.0 kg
[~2023-11-01 07:55] MED LIST changes: +DICL100G10 TOP; -DICL1GEL3 TOP; -GABA-283 PO; +GABA-284 PO; -LOSA100T45 PO; +LOSA100T46 PO; +MULTTAB61 PO; -POTA10CA33 PO; +POTA10CA70 PO; -ROSU40TA4 PO; +ROSU40TA63 PO
[2023-11-01] MEDS: NS 1,000 ML IV ONE (08:26)
[2023-11-01] MEDS ORDERED: DEXTROSE 50% 50ML SYRINGE IV PRN (08:30)
[2023-11-01] MEDS ORDERED: GLUCOSE 4 GM CHEW PO PRN (08:30)
[2023-11-01] MEDS ORDERED: GLUCAGON INJ 1MG VIAL SC PRN (08:30)
[2023-11-01] MEDS: INSULIN LISPRO (NovoLOG) PER UNIT SC PRN (08:47)
[2023-11-01] MEDS ORDERED: SEMA0.257 SQ (08:48)
[2023-11-01] MEDS ORDERED: propofoL 200 MG/20 ML VIAL As Ordered ONE (09:13)
[2023-11-01] MEDS ORDERED: LIDOCAINE 2% 100MG/5ML SDV (FOR ANES.) As Ordered ONE (09:13)
[2023-11-01 10:14] VITALS: TEMP 97.3
[2023-11-01 10:35] VITALS: BP 156/74; O2SAT 96
== END 2023-11-01 11:02 | disposition home or self-care (01) ==
LOC: M OPP 07:55
PROVIDERS: ATTEND Surgery
DX: Z12.11 Encounter for screening for malignant neoplasm of colon (principal); K63.5 Polyp of colon; K57.30 Diverticulosis of large intestine without perforation or abscess without bleeding; E11.9 Type 2 diabetes mellitus without complications; I10 Essential (primary) hypertension; F17.200 Nicotine dependence, unspecified, uncomplicated; Z79.02 Long term (current) use of antithrombotics/antiplatelets; Z79.4 Long term (current) use of insulin; Z79.82 Long term (current) use of aspirin; Z79.891 Long term (current) use of opiate analgesic; Z79.899 Other long term (current) drug therapy
CPT/HCPCS: 45385; 88305; J1815

== ENCOUNTER → 2024-05-28 | Outpatient (CLI) | payer OTHER ==
[~2024-05-28] MED LIST changes: -ROSU40TA63 PO; +ROSU40TA81 PO; +SEMA0.257 SQ
[2024-05-28 08:17] LABS: ALBUMIN 3.9 G/DL (3.2-5.2); ALKALINE PHOSPHATASE 73 U/L (40-129); ALT/SGPT 39 U/L (7.0-40); AST/SGOT 27 U/L (<34); BILIRUBIN,TOTAL 0.5 MG/DL (0.3-1.2); BLOOD UREA NITROGEN 22 MG/DL (9-23); CALCIUM LEVEL 9.4 MG/DL (8.3-10.6); CARBON DIOXIDE LEVEL 31 MMOL/L (20-31); CHLORIDE LEVEL 108 MMOL/L (98-107); CREATININE FOR GFR 0.96 MG/DL (0.70-1.30); GLOMERULAR FILTRATION RATE > 60.0 (>49); GLUCOSE, FASTING 80 MG/DL (74-106); POTASSIUM SERUM 4.2 MMOL/L (3.5-5.1); SODIUM LEVEL 143 MMOL/L (136-145); TOTAL PROTEIN 6.9 G/DL (5.7-8.2)
[2024-05-28 09:32] LABS: HEMOGLOBIN A1c 7.2 % (4.0-6.0)
== END ==
LOC: M LAB 07:20
PROVIDERS: ATTEND Internal Medicine
DX: Z01.812 Encounter for preprocedural laboratory examination (principal); Z79.899 Other long term (current) drug therapy

== ENCOUNTER → 2025-03-19 | Outpatient (CLI) | payer OTHER ==
[~2025-03-19] MED LIST changes: -GLUC1KIT IM; +GLUC1VIA14 IM; -NYST-13 EXT; +NYST0.1C EXT
== END ==
LOC: M PLAIMG 08:45
PROVIDERS: ATTEND Registered Nurse
DX: M47.26 Other spondylosis with radiculopathy, lumbar region (principal); M51.360 Other intervertebral disc degeneration, lumbar region with discogenic back pain only; M46.06 Spinal enthesopathy, lumbar region; M89.38 Hypertrophy of bone, other site